=== PATIENT | female | born 1970 | race Caucasian/White ===

== ENCOUNTER 2020-04-24 16:01 | Outpatient (REF) | payer BC, OTHER, SELFPAY ==
--- NOTE | 2020-04-24 | MM_ITS ---
EXAMINATION: MM SCREENING DIGITAL BREAST TOMOSYNTHESIS, BILATERAL CLINICAL INFORMATION: Screening. Asymptomatic. The lifetime risk of breast cancer based on the Tyrer-Cuzick Model is 13%. COMPARISON: Mammography: 02/23/2019; outside exams 12/10/2017, 05/11/2017, 07/02/2015 ([facility]). TECHNIQUE: Digital breast tomosynthesis is performed in both the craniocaudal and mediolateral oblique views along with computer-aided detection (CAD). Synthesized 2D images are generated from the tomosynthesis. FINDINGS: There are scattered areas of fibroglandular density (ACR BI-RADS breast composition Category b). There are no significant masses, abnormal calcifications, or other abnormalities. Parenchymal pattern is similar to prior studies. No developing density. No significant changes. MM/MM tomosynthesis screening BI IMPRESSION: There are no significant changes from prior study. ASSESSMENT: BI-RADS 1: Negative RECOMMENDATION: Routine annual mammography screening. This patient's information was entered into a reminder system with a target due date for their next mammogram.
== END 2020-04-24 16:02 | disposition home or self-care (01) ==
LOC: HO.MAMMO 16:01
PROVIDERS: Visit Provider Advanced Practice Midwife
DX: Z12.31 Encounter for screening mammogram for malignant neoplasm of breast (principal)
CPT/HCPCS: 77063; 77067

== ENCOUNTER 2020-05-11 15:30 | Outpatient (REF) | payer BC, MEDICAID, SELFPAY | END 2020-05-11 15:31 | disposition home or self-care (01) | LOC: HO.LAB 15:30 | PROVIDERS: Visit Provider Advanced Practice Midwife | DX: B37.2 Candidiasis of skin and nail (principal); Z20.2 Contact with and (suspected) exposure to infections with a predominantly sexual mode of transmission | CPT/HCPCS: 87491; 87591 ==

== ENCOUNTER → 2020-09-07 15:39 | Outpatient (BNVA) | payer BC, MEDICAID, SELFPAY | PROVIDERS: Visit Provider Obstetrics & Gynecology ==

== ENCOUNTER → 2021-02-14 14:44 | Outpatient (BNVA) | payer BC, MEDICAID, SELFPAY | PROVIDERS: Visit Provider Obstetrics & Gynecology ==

== ENCOUNTER 2021-03-13 14:08 | Outpatient (REF) | payer BC, MEDICAID, SELFPAY ==
[2021-03-13 15:42] LABS: Hematocrit 37.1 % (37-47); Hemoglobin 12.9 g/dl (12.0-16.0); Mean Corpuscular HGB Conc 34.8 g/dl (31.0-35.0); Mean Corpuscular Hemoglobin 32.7 pg (27.0-33.0); Mean Corpuscular Volume 93.9 fL (80-98); Mean Platelet Volume 10.7 fL (9.4-12.3); Platelet Count 300 X10*3/uL (160-400); Red Blood Count 3.95 X10*6/uL (4.20-5.50); Red Cell Distribution Width 12.7 % (11.0-16.0); White Blood Count 6.8 X10*3/uL (4.8-10.8)
[2021-03-13 16:25] LABS: HCG Quantitative < 2 mIU/mL; TSH reflex Free T4 7.08 uIU/mL (0.32-4.0)
[2021-03-13 17:00] LABS: Free T4 (Free Thyroxine) 0.68 ng/dL (0.71-1.85)
[2021-03-15 03:10] LABS: Follicle Stimulating Hormone 5.7 mIU/mL; Lutenizing Hormone 1.8 mIU/mL
== END 2021-03-13 14:09 | disposition home or self-care (01) ==
LOC: HO.LAB 14:08
PROVIDERS: PCP Internal Medicine; Visit Provider Obstetrics & Gynecology
DX: N92.0 Excessive and frequent menstruation with regular cycle (principal); N93.9 Abnormal uterine and vaginal bleeding, unspecified
CPT/HCPCS: 36415; 58100; 83001; 83002; 84439; 84443; 84702; 85027; 88305

== ENCOUNTER 2021-04-05 15:19 | Outpatient (REF) | payer BC, MEDICAID, SELFPAY ==
--- NOTE | ~2021-04-05 | US_ITS ---
EXAMINATION: US PELVIS CLINICAL INFORMATION: Abnormal uterine vaginal bleeding COMPARISON: Previous pelvic ultrasound November 2012 TECHNIQUE: Ultrasound of the pelvis is performed using both transabdominal and transvaginal transducers along with Doppler. Transvaginal imaging is performed due to inadequate visualization transabdominally. FINDINGS: The uterus is anteverted and measures 9.2 x 4.3 x 5.2 cm in dimension. No focal uterine lesion is seen. Endometrial thickness is normal measuring 0.7 cm. There are nabothian cysts in the cervix. The ovaries are normal-appearing. The right ovary measures 2.2 x 1.7 x 2 cm and the left ovary measures 1.9 x 1.5 x 1.4 cm. There is no fluid in the pelvis. US/US pelvic and transvaginal IMPRESSION: Unremarkable exam.
== END 2021-04-05 15:20 | disposition home or self-care (01) ==
LOC: HO.US 15:19
PROVIDERS: PCP Internal Medicine; Visit Provider Obstetrics & Gynecology
DX: N92.0 Excessive and frequent menstruation with regular cycle (principal); N93.9 Abnormal uterine and vaginal bleeding, unspecified
CPT/HCPCS: 76830; 76856

== ENCOUNTER → 2021-04-11 09:53 | Outpatient (BNVA) | payer BC, MEDICAID, SELFPAY | PROVIDERS: Visit Provider Obstetrics & Gynecology ==

== ENCOUNTER → 2021-09-11 15:04 | Outpatient (BNVA) | payer BC, MEDICAID, SELFPAY | PROVIDERS: PCP Internal Medicine; Visit Provider Obstetrics & Gynecology | DX: Z13.89 Encounter for screening for other disorder (principal) ==

== ENCOUNTER 2021-09-16 16:03 | Outpatient (REF) | payer BC, MEDICAID, SELFPAY ==
--- NOTE | ~2021-09-16 | MM_ITS ---
EXAMINATION: MM SCREENING DIGITAL BREAST TOMOSYNTHESIS, BILATERAL CLINICAL INFORMATION: Screening. Asymptomatic. The lifetime risk of breast cancer based on the Tyrer-Cuzick Model is 12%. COMPARISON: Mammography: 04/24/2020, 02/23/2019; outside mammography 12/10/2017, 05/11/2017 ([facility]) TECHNIQUE: Digital breast tomosynthesis is performed in both the craniocaudal and mediolateral oblique views along with computer-aided detection (CAD). Synthesized 2D images are generated from the tomosynthesis. FINDINGS: There are scattered areas of fibroglandular density (ACR BI-RADS breast composition Category b). There are no significant masses, abnormal calcifications, or other abnormalities. Parenchymal pattern is similar to prior studies. There is no developing density or architectural abnormality. The axilla and skin contours are unremarkable. No significant changes. MM/MM tomosynthesis screening BI IMPRESSION: No mammographic evidence of malignancy. ASSESSMENT: BI-RADS 1: Negative RECOMMENDATION: Routine annual mammography screening. This patient's information was entered into a reminder system with a target due date for their next mammogram.
== END 2021-09-16 16:04 | disposition home or self-care (01) ==
LOC: HO.MAMMO 16:03
PROVIDERS: Visit Provider Internal Medicine
DX: Z12.31 Encounter for screening mammogram for malignant neoplasm of breast (principal)
CPT/HCPCS: 77063; 77067

== ENCOUNTER 2022-07-03 13:40 | Day surgery (SDC) | payer BC, MEDICAID, SELFPAY ==
[2022-06-27 14:05] VITALS: BMI 33.5
[2022-07-03 14:05] VITALS: BP 142/76; PULSE 71; RESP 18; TEMP 36.6; O2SAT 96
--- NOTE | 2022-07-03 14:09 | MHC.SHP ---
Pre-Procedural Eval Section A Date of Service: 07/03/22 Section B Chief Complaint: screening Details of Present Illness: 51y.o F with PMH of hypothyroidism, fam hx of CRC in father. Relevant Social History: None Present Medications: see Short Stay Collaborative assessment Medical History: Significant History (as above ) History of Previous Operations: No relevant previous surgery Allergies: Allergies Allergy/AdvReac Type Severity Reaction Status Date / Time No Known Allergies Allergy Verified 03/21/22 08:54 Review of Systems Review of Systems Comment: 10 point ROS negative except as above Exam Exam Comment: Gen appear: No acute distress, well nourished HEENT: no icterus Chest: No overt resp distress Abd: soft, nontender, nondistended Psych: Stable affect, answering questions appropriately Neuro: A/Ox3 noted to move all extremities spontaneously Ext: no peripheral edema Plan Diagnosis/Plan: Unchanged I have reviewed the history and physical and performed a pertinent physical examination on my patient. No changes have occurred unless specified. Time Spent With Patient Time: Total time managing care of this patient today ____ minutes.
[2022-07-03] MEDS: Lactated Ringers 1,000 ML 50 ML IVCONT (14:13)
--- NOTE | 2022-07-03 14:24 | P.CONAN_ITS ---
HPI - Anesthesia Eval Consult details Narrative: screening colonoscopy PMFSH Active Problems Active Problems: All Active Problems (Updated 03/26/22 @ 19:17 by FAITH Ruelas) Constipation (Acute) Well woman exam (Acute) Hypothyroid (Acute) Menorrhagia (Acute) Potential exposure to STD (Acute) Yeast dermatitis (Acute) Well woman exam with routine gynecological exam (Acute) Past Medical History Medical History (Updated 03/26/22 @ 19:17 by FAITH Ruelas) Constipation Kuldip's thyroiditis Herpes simplex Hx of migraines Hyperlipidemia Hypothyroidism (acquired) Date of last menstrual period: 07/03/22 Patient : No Family History Family history of problems with anesthesia: No Surgical History Surgical History (Updated 03/21/22 @ 08:55 by Brad Das) Hx of section Hx of colonoscopy History of Problems with Anesthesia: No Social History Social History Alcohol intake: current Alcohol intake frequency: holidays/special occasions only Alcohol type: wine Patient Tobacco Use Status: Never used Tobacco Are you DNR?: No Advance Directives: No Advance Directives Information Provided: Yes Nutrition Risks: No Nutritional Risk Patient : No Sexual orientation: Straight/Heterosexual Gender identity: Female Meds Allergies Allergy/AdvReac Type Severity Reaction Status Date / Time No Known Allergies Allergy Verified 03/21/22 08:54 Active Medications: Current Medications Lactated Ringer's (Lr) 1,000 mls @ 50 mls/hr IVCONT .Q20H WU Last Admin: 07/03/22 14:13 Dose: 50 mls/hr Home Medications Medication Instructions Recorded Confirmed Last Taken Type acyclovir 400 mg tablet 400 mg PO DAILY 05/11/20 05/11/20 Unknown History levothyroxine 100 mcg capsule 100 mcg PO DAILY 05/11/20 05/11/20 Unknown History valacyclovir 500 mg tablet 500 mg PO DAILY 02/14/21 Unknown History (Valtrex) Exam Exam Date and Time: July 03, 2022 1424 Height,Weight and Vital Signs: Height 5 ft 6 in Weight 94.347 kg Last Vital Signs Temp 97.8 F 07/03/22 14:05 Pulse 71 07/03/22 14:05 Resp 18 07/03/22 14:05 BP 142/76 H 07/03/22 14:05 Pulse Ox 96 07/03/22 14:05 O2 Del Method 07/03/22 14:05 Airway Mallampati Class: II TM Dist: >3cm Neck ROM: Full Heart: rr Lungs: cta Assessment and Plan Final Anesthetic Review Family History of Problems with Anesthesia: No History of Problems with Anesthesia: No NPO: Yes ASA Class: II Final Preanesthetic Review: No Changes in Pt Med Stat, Meds/Allgs Chart Reviewed, Consent Obtained/Reviewed and Anes Risks/Benef Reviewed Patient Risk: Low Procedure Risk: Low Anesthetic Plan Anesthetic Plan: MAC: Disposition: Standard PACU
[2022-07-03 14:41] LABS: UPreg QC Valid YES; Urine Pregnancy NEGATIVE (NEGATIVE)
--- NOTE | 2022-07-03 15:22 | P.OP_ITS ---
Operative Note Operative Note Date of Service: 07/03/22 Narrative: Procedure: Colonoscopy Indication: Screening Family history of colon cancer Endoscopist: Evangelina Guadalupe MD Anesthesia Provider: Dr Sera Baca Anesthesia type: MAC Instrument: Olympus [id number]-[id number] Consent: Indication, risks vs benefits, and alternatives were discussed with the patient who gave written informed consent to proceed. EKG, pulse, pulse oximetry and blood pressure were monitored throughout the procedure. Please see anesthesia flowsheet. Procedure: The patient was brought to the procedure room and placed in the left lateral decubitus position. IV medications were administered by the anesthesia provider in attendance. A digital rectal exam was performed which was normal. The colonoscope was then inserted through the anus and advanced through the colon to the cecum at 80 cm,and terminal ileum. Mucosa was carefully examined under high definition white light as the instrument was slowly withdrawn in a retrograde panoramic fashion. Retroflexion was performed in rectum. The procedure was not difficult. There were no immediate obvious complications. The quality of the prep was BBPS: 1+2+3 = inadequate in R colon. Withdrawal time 19 minutes. Limitations: Poor prep. Findings: Mucosa: Cecum not completely visualised due to solid and semi solid stool covering most of the lumen despite extensive irrigation. Protruding lesions: * 5 sessile polyps of size 3-8 mm in sigmoid colon. Cold snare polypectomy was performed. The polyps were completely removed and retrieved. * Medium internal hemorrhoids without stigmata of recent bleeding. Impression: 1. Poor prep in R colon. 2. Total of 5 polyps removed from sigmoid colon. 3. Internal hemorrhoids Recommendations: - Follow path results. - Repeat colonoscopy in 1-2 years due to poor prep.
[2022-07-03 15:25] VITALS: BP 100/51; PULSE 89; RESP 16; TEMP 36.7; O2SAT 98
[2022-07-03 15:40] VITALS: BP 118/65; PULSE 80; RESP 18; TEMP 37.1; O2SAT 97
== END 2022-07-03 16:25 | disposition home or self-care (01) ==
PROVIDERS: Anesthesiology; PCP Internal Medicine; Visit Provider Internal Medicine
PROC: 0DJD8ZZ Inspection of Lower Intestinal Tract, Via Natural or Artificial Opening Endoscopic (ICD-10-PCS; CPT 45378; principal; 2022-07-03 14:50)
DX: Z12.11 Encounter for screening for malignant neoplasm of colon (principal); Z80.0 Family history of malignant neoplasm of digestive organs; Z83.71 Family history of colonic polyps; D12.5 Benign neoplasm of sigmoid colon; K59.01 Slow transit constipation; R14.0 Abdominal distension (gaseous); K64.8 Other hemorrhoids; E78.5 Hyperlipidemia, unspecified; E06.3 Autoimmune thyroiditis; E03.9 Hypothyroidism, unspecified; B00.9 Herpesviral infection, unspecified; Z79.899 Other long term (current) drug therapy
CPT/HCPCS: 45385; 81025; 88305

== ENCOUNTER → 2022-07-18 16:26 | Outpatient (BNVA) | payer BC, MEDICAID, SELFPAY | PROVIDERS: PCP Internal Medicine; Visit Provider Nurse Practitioner Family | DX: Z13.89 Encounter for screening for other disorder (principal) ==

== ENCOUNTER 2022-12-16 09:11 | Outpatient (AMB) | payer BC, MEDICAID, SELFPAY ==
--- NOTE | 2022-12-16 09:17 | A.OFFVIS_ITS ---
Intake Vital Signs 12/16/22 09:19 Height 5 ft 6 in Weight 211 lb BMI 34.1 BP 136/80 Intake Visit Reasons: Selene Diesel Service Technician Required: No Information Interpreted: non-clinical & clinical Geotechnical Laboratory Technician: Geotechnical Laboratory Technician Present (Emily) Allergies No Known Allergies Allergy (Verified 12/16/22 09:21) Is last menstrual period known: Yes Last menstrual period: 11/22/22 Post menopausal: No HPI HPI Comments History of Present Illness Details Presenting for annual exam. No complaints. Last Pap/HPV was negative in 02/10 Last Mammogram was BI-RADS 1 in 09/13 Last Colonoscopy was in 07/17, the recommendation was to repeat in 8 months [facility] Medical History Constipation Kuldip's thyroiditis Herpes simplex Hx of migraines Hyperlipidemia Hypothyroidism (acquired) Tubular adenoma Surgical History Hx of section Hx of colonoscopy Social History Alcohol intake: current Alcohol intake frequency: holidays/special occasions only Alcohol type: wine Patient Tobacco Use Status: Never used Tobacco Sexual orientation: Straight/Heterosexual Gender identity: Female Female Reproductive History Menstrual Age of Menarche: 14 Duration of menses: 3-5 days Date of last menstrual period: 11/22/22 control method: none Total pregnancies: 3 Full term: 1 Ab spontaneous: 2 Date of last pap smear: 02/16/19 (negative) History of abnormal pap smear: Yes Date of Mammogram: 09/16/21 Review of Systems Const All systems reviewed & are unremarkable except as noted in HPI and below Card Reports as per HPI Resp Reports as per HPI GI Reports as per HPI and Reports no additional complaints Reports as per HPI Physical Exam Vital Signs: Last Vital Signs BP 136/80 12/16/22 09:19 BMI result Body Mass Index 34.1 Const General: cooperative, healthy appearing and comfortable Chest Chest palpation & inspection: normal inspection of the chest and normal palpation of entire chest wall Breast/axilla inspection: normal inspection of the breasts and normal inspection of the axillae Breast/axilla palpation: normal palpation of the breasts, normal palpation of the axillae and no axillary lymphadenopathy Resp Effort & Inspection: normal respiratory effort Auscultation: clear to auscultation bilaterally Percussion: percussion normal Cardio Palpation: normal PMI Rate: regular rate Rhythm: regular rhythm Heart sounds: no murmurs and no rubs Peripheral pulses: Peripheral pulses 2+ throughout GI Inspection: Yes normal to inspection Palpation (GI): Soft to palpation, nontender, no guarding, not rigid and No hepatosplenomegaly present Percussion: Yes normal to percussion Auscultation: normal bowel sounds Rectal Exam - Female: deferred General: Yes bladder normal to palpation External Female Exam: No lesion Speculum Exam - Vagina: normal appearance of the vagina, normal palpation, normal vaginal discharge and not erythematous Speculum Exam - Cervix: normal appearance of the cervix and normal palpation Bimanual exam- vagina & uterus: normal bimanual exam, normal palpation, uterine size normal, bladder normal to palpation, consistency normal and normal palpation Bimanual Exam- Adnexa, other: normal adnexae, no masses and no tenderness Assessment & Plan Assessment & Plan (1) Well woman exam: Code(s): Z01.419 - Encounter for gynecological examination (general) (routine) without abnormal findings Plan: Co testing not indicated this year. Counseled the patient about the recommended dietary allowance of 1200 mg of Calcium & 600 IU of vitamin D. Mammogram scheduled in few weeks , the patient had a recent screening colonoscopy and will be due in 8 months and will be scheduling it soon . The patient was instructed to perform monthly self-breast exams and schedule annual exam in a year; all questions answered and the patient verbalized understanding. Orders: Orders MM screening mammo BI Today Z12.31 - Encounter for screening mammogram for malignant neoplasm of breast Coding Level of Care Code Est Pt Prev Care 40-64y(42202) Diagnoses Well woman exam Z01.419
[2022-12-16 09:19] VITALS: BP 136/80; BMI 34.1
== END 2022-12-16 10:11 | disposition home or self-care (01) ==
LOC: HO.HWS 09:11
PROVIDERS: PCP Internal Medicine; Visit Provider Obstetrics & Gynecology
DX: Z01.419 Encounter for gynecological examination (general) (routine) without abnormal findings (principal)
CPT/HCPCS: 99396

== ENCOUNTER → 2022-12-16 09:11 | Outpatient (BNVA) | payer BC, MEDICAID, SELFPAY | PROVIDERS: PCP Internal Medicine; Visit Provider Obstetrics & Gynecology ==

== ENCOUNTER → 2022-12-19 09:45 | Outpatient (BNV) | payer BC, MEDICAID, SELFPAY | PROVIDERS: PCP Internal Medicine; Visit Provider Radiology Diagnostic Radiology | DX: Z12.31 Encounter for screening mammogram for malignant neoplasm of breast (principal) | CPT/HCPCS: 77063; 77067 ==

== ENCOUNTER 2022-12-19 09:48 | Outpatient (REF) | payer BC, MEDICAID, SELFPAY ==
--- NOTE | ~2022-12-19 | MM_ITS ---
EXAMINATION: MM SCREENING DIGITAL BREAST TOMOSYNTHESIS, BILATERAL CLINICAL INFORMATION: Screening. Asymptomatic. The lifetime risk of breast cancer based on the Tyrer-Cuzick Model is 11.8%. COMPARISON: Mammography: This study is compared with prior exams dating back to 2017. TECHNIQUE: Digital breast tomosynthesis is performed in both the craniocaudal and mediolateral oblique views along with computer-aided detection (CAD). Synthesized 2D images are generated from the tomosynthesis. FINDINGS: There are scattered areas of fibroglandular density (ACR BI-RADS breast composition Category b). There are no significant masses, abnormal calcifications, or other abnormalities. MM/MM tomosynthesis screening BI IMPRESSION: No mammographic evidence of malignancy. ASSESSMENT: BI-RADS BI-RADS 1 - Negative RECOMMENDATION: Routine annual mammography screening. 1 year F/U This examination should not preclude the clinical evaluation of a suspicious palpable abnormality. This patient's information was entered into a reminder system with a target due date for their next mammogram.
== END 2022-12-19 09:49 | disposition home or self-care (01) ==
LOC: HO.MAMMO 09:48
PROVIDERS: PCP Internal Medicine; Visit Provider Internal Medicine
DX: Z12.31 Encounter for screening mammogram for malignant neoplasm of breast (principal)
CPT/HCPCS: 77063; 77067

== ENCOUNTER → 2023-02-13 15:15 | Outpatient (BNVA) | payer BC, MEDICAID, SELFPAY | PROVIDERS: PCP Internal Medicine; Visit Provider Nurse Practitioner Family ==

== ENCOUNTER 2023-02-13 15:16 | Outpatient (AMB) | payer BC, MEDICAID, SELFPAY ==
--- NOTE | 2023-02-13 15:19 | A.OFFVIS_ITS ---
Intake Vital Signs 02/13/23 15:22 Height 5 ft 6 in Weight 205 lb 0.478 oz BMI 33.1 Blood Pressure Location Lt brachial Position Sitting Intake Visit Reasons: 6 month follow up - rediscuss colonoscopy Intake Note: Yamilet presents in the office as a 6 month follow up to rediscuss colonoscopy. CC: She states she is having both constipation and diarrhea. She was just on PCN and she has not been on that for a little bit. 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 Patient will need to repeat colonoscopy in 1-2 years due to suboptimal prep, sooner if clinically symptomatic. Constipation Continue MiraLax daily. Patient will be given Dulcolax tablets she can take it every evening. Patient was also encouraged to increase activity and fluid intake to promote better bowel motility. Status post colonoscopy Suboptimal prep and patient will need to repeat colonoscopy in 1-2 years. Patient denies any ill effects from the prep, anesthesia or procedure itself. Patient will need to move her bowels better. We will order thyroid study. I will see her in 6 months, sooner on as needed basis. Patient is agreeable to this plan and verbalizes understanding of instructions. She was given the opportunity to ask questions and all questions answered. ? Thank you for allowing me to participate in her care Plan Orders Orders TSH reflex Free T4 07/18/22 K59.00 Medications New bisacodyl (Dulcolax (bisacodyl)) 10 mg (2 x 5 mg) PO BEDTIME 180 tabs 4RF Changed From polyethylene glycol 3350 17 grams PO DAILY 510 grams 2RF To polyethylene glycol 3350 (Miralax) 17 grams PO DAILY 510 grams 2RF Discontinued docusate sodium Discontinued Reason: Doctor's Order 200 mg (2 x 100 mg) PO DAILY 180 caps 2RF TODAY'S VISIT Patient is here today for follow-up and to discuss going for colonoscopy. Patient reports that she is moving her bowels better. She is taking bisacodyl t ablets every evening. Occasional postprandial dyspepsia depending on what she eats. Patient reports that she has been stressed taking care of her autistic child. Patient reports that she would like to have colonoscopy done in June before her goes back to work. Patient denies melena, hematochezia, unintentional weight loss or ribbon like stools. Patient reports that she was placed on antibiotic and reports to have frequent diarrhea after worse. Patient also reports vaginal itching thinking that she might have yeast infection. Patient is eating yogurt. Has not tried probiotics [id number] yet. Patient denies any issues with anesthesia before. Did very well with procedure. Suboptimal prep which we will have patient take 2 Dulcolax daily PFSH Medical History Constipation Kuldip's thyroiditis Herpes simplex Hx of migraines Hyperlipidemia Hypothyroidism (acquired) Tubular adenoma Surgical History Hx of section Hx of colonoscopy Social History Alcohol intake: current Alcohol intake frequency: holidays/special occasions only Alcohol type: wine Patient Tobacco Use Status: Never used Tobacco Sexual orientation: Straight/Heterosexual Gender identity: Female Female Reproductive History Menstrual Age of Menarche: 14 Review of Systems Const Denies weight gain and Denies weight loss ENT Reports no additional complaints, Denies dysphagia and Denies odynophagia Card Reports no additional complaints Resp Reports no additional complaints GI Denies abdominal pain, Denies belching, Denies melena, Denies bloating, Denies change in bowel habits, Denies dysphagia, Denies excessive flatus, Denies dyspepsia, Denies heartburn, Denies diarrhea, Reports loose stools, Denies nausea, Denies odynophagia and Denies vomiting Reports no additional complaints Musc Reports no additional complaints Neuro Reports no additional complaints Psych Reports no additional complaints Endo Reports no additional complaints Physical Exam Vital Signs: BMI result Body Mass Index 33.1 Const General: healthy appearing, no acute distress and well developed Nutritional Appearance: obese Orientation/consciousness: patient oriented x3 HEENT Head: Yes normal to inspection, Yes normocephalic and Yes atraumatic Face and sinus: Yes normal facial exam Mouth: Normal oral and palatal mucosa present Throat: Yes posterior oropharynx normal, Yes tonsils normal and Yes uvula midline Eyes General: appearance normal, both eyes and all related structures Neck Neck: Yes normal visual inspection, Yes full ROM and Yes trachea midline Thyroid: Thyroid normal Resp Effort & Inspection: normal respiratory effort, able to speak in complete sentences, no tracheal deviation and symmetric chest movement Auscultation: clear to auscultation bilaterally Cardio Rate: regular rate Heart sounds: S1 normal heart sound present and S2 normal heart sound present GI Inspection: Yes normal to inspection, No distended and Yes obesity Palpation (GI): Soft to palpation, not firm, nontender and No hepatosplenomegaly present Auscultation: normal bowel sounds General: Yes no CVA tenderness Back/Spine/Pelvis Back: no CVA tenderness Skin General skin exam: elasticity normal, turgor normal and dry skin Neuro General: patient oriented x3 Psych Appearance: grossly normal Mental Status: mental status grossly normal Speech and movement: Normal speech and movement present Assessment & Plan Assessment & Plan (1) Tubular adenoma: Code(s): D36.9 - Benign neoplasm, unspecified site (2) Constipation: Code(s): K59.00 - Constipation, unspecified Qualifiers: Constipation type: slow transit constipation Qualified Code(s): K59.01 - Slow transit constipation (3) Screen for colon cancer: Code(s): Z12.11 - Encounter for screening for malignant neoplasm of colon Plan Patient can continue Dulcolax to have blood daily. She can also take MiraLax in the morning. With expect before during and after the procedure discussed with patient. The importance of good bowel prep discussed with patient as well as clear liquid diet day before the procedure. Patient denies any ill effects from anesthesia during last colonoscopy. Colonoscopy was done in June of 2022 1 tubular adenoma without high-grade dysplasia or carcinoma found. As mentioned above patient had suboptimal prep and will me that colonoscopy repeated in 1-2 years. Not on any anticoagulation medication. I will see patient after the procedure. We will book procedure for June. Patient will call the office sooner if she will have any GI concerning symptoms. She is agreeable to this plan and verbalizes understanding of instructions. She was given the opportunity to ask questions and all questions answered. Thank you for allowing me to participate in her care Medications: New polyethylene glycol 3350 (Miralax) 17 grams PO DAILY 510 grams 2RF polyethylene glycol 3350 (Miralax) As directed by gastroenterology department at [facility] 238 grams PO ONCE 238 grams 0RF Z12.11 - Encounter for screening for malignant neoplasm of colon fluconazole (Diflucan) 150 mg PO DAILY 3 tabs 0RF lactobacillus combination no.4 (Probiotic) administer with a meal 3,000 mmu cells PO DAILY 30 caps 5RF Changed From polyethylene glycol 3350 17 grams PO DAILY 510 grams 2RF To polyethylene glycol 3350 (Miralax) 17 grams PO DAILY 510 grams 2RF Refilled bisacodyl (Dulcolax (bisacodyl)) 10 mg (2 x 5 mg) PO BEDTIME 180 tabs 4RF Coding Level of Care Code Est Pt Level 4 (19536) Diagnoses Tubular adenoma D36.9 Slow transit constipation K59.01 Constipation type: slow transit constipation Screen for colon cancer Z12.11 Time Spent (min) 35 Comment 20 minutes spent with patient and additional 15 minutes spent reviewing her records
[2023-02-13 15:22] VITALS: BMI 33.1
== END 2023-02-13 16:12 | disposition home or self-care (01) ==
PROVIDERS: PCP Internal Medicine; Visit Provider Nurse Practitioner Family
DX: D36.9 Benign neoplasm, unspecified site (principal); K59.01 Slow transit constipation; Z12.11 Encounter for screening for malignant neoplasm of colon
CPT/HCPCS: 99214

== ENCOUNTER 2023-07-14 10:40 | Day surgery (SDC) | payer BC, MEDICAID, SELFPAY ==
[2023-07-08 14:16] VITALS: BMI 33.1
[2023-07-14 10:56] VITALS: BMI 33.1
[2023-07-14 11:03] VITALS: BP 156/82; PULSE 82; RESP 18; TEMP 36.6; O2SAT 96
[2023-07-14 11:04] LABS: UPreg QC Valid YES; Urine Pregnancy NEGATIVE (NEGATIVE)
--- NOTE | 2023-07-14 11:12 | P.OP_ITS ---
Operative Note Operative Note Date of Service: 07/14/23 Narrative: Procedure: Colonoscopy Indication: Personal history of polyps Endoscopist: Evangelina Guadalupe MD Anesthesia Provider: Dr Mychal Walsh Anesthesia type: MAC Instrument: Olympus [id number]-[id number] Consent: Indication, risks vs benefits, and alternatives were discussed with the patient who gave written informed consent to proceed. EKG, pulse, pulse oximetry and blood pressure were monitored throughout the procedure. Please see anesthesia flowsheet. Procedure: The patient was brought to the procedure room and placed in the left lateral decubitus position. IV medications were administered by the anesthesia provider in attendance. A digital rectal exam was performed which was abnormal due to finding of hemorrhoids. A distal attachment cap was affixed to the tip of the colonoscope which was then inserted through the anus and advanced through the colon to the cecum at 70 cm,and terminal ileum. Mucosa was carefully examined under high definition white light as the instrument was slowly withdrawn in a retrograde panoramic fashion. Retroflexion was performed in ascending colon and rectum. The procedure was not difficult. There were no immediate obvious complications. The quality of the prep was BBPS: 2+3+2 = adequate Withdrawal time 29 minutes. Limitations: No limitations. Findings: Mucosa: Normal to cecum and terminal ileum. Protruding lesions: * 3 sessile polyp of size 2-4 mm in ascending colon. Cold forceps polypectomy was performed. The polyps were completely removed and retrieved. * 8 sessile polyp of size 3-6 mm in transverse colon. Cold forceps polypectomy was performed. The polyps were completely removed and retrieved. * 3 sessile polyp of size 3-4 mm in descending colon. Cold forceps polypectomy was performed. The polyps were completely removed and retrieved. * 2 sessile polyp of size 3-5 mm in sigmoid colon. Cold forceps polypectomy was performed. The polyps were completely removed and retrieved. * Large internal hemorrhoids without stigmata of recent bleeding. Impression: 1. Normal colon and terminal mucosa 2. Total of 16 polyps removed. However patient had multiple diminutive polyps measuring 1-3 mm throughout her colon estimated to be in 30-40 range. 3. Internal hemorrhoids Recommendations: - Follow path results. - Strong suspicion for underlying polyposis syndrome, such as attenuated FAP vs MUTYH. Patient also reports strong family history of polyps and ? colon cancer. Recommend referral for genetic testing if patient agreeable. - Further management will depend on path results as well as genetic testing results, including evaluation for extra colonic manifestations.
--- NOTE | 2023-07-14 11:12 | MHC.SHP ---
Pre-Procedural Eval Section A - 24 Hr Update-Section A only Date of Service: 07/14/23 Section B - Complete if H&P > 30 days Chief Complaint: Personal history of polyps Details of Present Illness: Past medical history Constipation Kuldip's thyroiditis Herpes simplex Hx of migraines Hyperlipidemia Hypothyroidism (acquired) Tubular adenoma Surgical History Hx of section Hx of colonoscopy Present Medications: see Short Stay Collaborative assessment Allergies: Allergies Allergy/AdvReac Type Severity Reaction Status Date / Time No Known Allergies Allergy Verified 07/14/23 11:10 Review of Systems Review of Systems Comment: 10 point ROS negative except chronic constipation Exam Exam Comment: Gen appear: No acute distress HEENT: no icterus Chest: No overt resp distress Abd: soft, nontender, nondistended Psych: Stable affect, answering questions appropriately Neuro: A/Ox3 noted to move all extremities spontaneously Ext: no peripheral edema Plan Diagnosis/Plan: Unchanged I have reviewed the history and physical and performed a pertinent physical examination on my patient. No changes have occurred unless specified. Time Spent With Patient Time: Total time managing care of this patient today ____ minutes.
--- NOTE | 2023-07-14 11:17 | P.CONAN_ITS ---
[facility] Active Problems Active Problems: All Active Problems (Updated 07/26/22 @ 20:51 by Surekha Rosado, [facility]) Well woman exam (Acute) Hypothyroid (Acute) Menorrhagia (Acute) Potential exposure to STD (Acute) Yeast dermatitis (Acute) Well woman exam with routine gynecological exam (Acute) Tubular adenoma (Acute) Constipation (Acute) Past Medical History Medical History Tubular adenoma Hx of migraines Herpes simplex Hypothyroidism (acquired) Constipation Hyperlipidemia Kuldip's thyroiditis Family History Family history of problems with anesthesia: No Surgical History Surgical History Hx of colonoscopy Hx of section History of Problems with Anesthesia: No Social History Social History Alcohol intake: current Alcohol intake frequency: holidays/special occasions only Alcohol type: wine Patient Tobacco Use Status: Never used Tobacco Are you DNR?: No Advance Directives: No Advance Directives Information Provided: Yes Nutrition Risks: No Nutritional Risk FDLMP: 2 months ago Sexual orientation: Straight/Heterosexual Gender identity: Female Meds Allergies Allergy/AdvReac Type Severity Reaction Status Date / Time No Known Allergies Allergy Verified 07/14/23 11:10 Home Medications Medication Instructions Recorded Confirmed Last Taken Type levothyroxine 100 mcg capsule 100 mcg PO DAILY 05/11/20 07/08/23 Unknown History valacyclovir 500 mg tablet 500 mg PO DAILY 02/14/21 07/08/23 Unknown History (Valtrex) amitriptyline 10 mg tablet 10 mg PO BEDTIME 02/13/23 07/08/23 Unknown History docusate sodium 100 mg capsule 100 mg PO BID 02/13/23 07/08/23 Unknown History labetalol 100 mg tablet 100 mg PO BID 02/13/23 07/08/23 Unknown History meloxicam 7.5 mg tablet 7.5 mg PO DAILY 02/13/23 07/08/23 Unknown History silver sulfadiazine 1 % topical appl topical 02/13/23 Unknown History cream sumatriptan succinate 25 mg tablet 25 mg PO DAILY 02/13/23 07/08/23 Unknown History tizanidine 4 mg tablet 4 mg PO BEDTIME 02/13/23 07/08/23 Unknown History topiramate 100 mg tablet 100 mg PO DAILY 02/13/23 07/08/23 Unknown History Exam Height,Weight and Vital Signs: Height 5 ft 6 in Weight 92.986 kg Last Vital Signs Temp 97.9 F 07/14/23 11:03 Pulse 82 07/14/23 11:03 Resp 18 07/14/23 11:03 BP 156/82 H 07/14/23 11:03 Pulse Ox 96 07/14/23 11:03 O2 Del Method Room Air 07/14/23 11:03 Pertinent Lab Results Pertinent Lab Results: Laboratory Tests 07/14/23 10:50 Urine Test NEGATIVE Airway Mallampati Class: III TM Dist: >3cm Neck ROM: Full Loose/Missing/Broken Teeth: No Heart: rrr Lungs: clear Assessment and Plan Final Anesthetic Review Family History of Problems with Anesthesia: No History of Problems with Anesthesia: No NPO: Yes ASA Class: II Final Preanesthetic Review: No Changes in Pt Med Stat, Meds/Allgs Chart Reviewed, Consent Obtained/Reviewed and Anes Risks/Benef Reviewed Patient Risk: Low Procedure Risk: Low Anesthetic Plan Anesthetic Plan: MAC: Disposition: Standard PACU
--- NOTE | 2023-07-14 11:23 | PC.NURSE ---
dr. rosas updated that patient was drinking prep with iced tea at 0800 today. ok to proceed.
[2023-07-14 12:33] VITALS: BP 107/63; PULSE 88; RESP 16; TEMP 36.2; O2SAT 95
[2023-07-14 12:48] VITALS: BP 140/90; PULSE 75; RESP 20; TEMP 36.5; O2SAT 99
== END 2023-07-14 13:36 | disposition home or self-care (01) ==
PROVIDERS: Anesthesiology; PCP Internal Medicine; Visit Provider Internal Medicine
PROC: 0DJD8ZZ Inspection of Lower Intestinal Tract, Via Natural or Artificial Opening Endoscopic (ICD-10-PCS; CPT 45378; principal; 2023-07-14 11:00)
DX: Z12.11 Encounter for screening for malignant neoplasm of colon (principal); Z86.010 Personal history of colon polyps; Z83.719 Family history of colon polyps, unspecified; D12.2 Benign neoplasm of ascending colon; D12.3 Benign neoplasm of transverse colon; D12.4 Benign neoplasm of descending colon; K63.5 Polyp of colon; K59.01 Slow transit constipation; K64.4 Residual hemorrhoidal skin tags; K64.8 Other hemorrhoids; E78.5 Hyperlipidemia, unspecified; E06.3 Autoimmune thyroiditis; E03.9 Hypothyroidism, unspecified; B00.9 Herpesviral infection, unspecified; Z79.899 Other long term (current) drug therapy
CPT/HCPCS: 45380; 81025; 88305; J2704

== ENCOUNTER → 2023-07-14 10:40 | Outpatient (BNV) | payer BC, MEDICAID, SELFPAY | PROVIDERS: PCP Internal Medicine; Visit Provider Internal Medicine | DX: Z12.11 Encounter for screening for malignant neoplasm of colon (principal); K63.5 Polyp of colon; K64.8 Other hemorrhoids; Z86.010 Personal history of colon polyps | CPT/HCPCS: 45380 ==

== ENCOUNTER 2023-07-22 15:55 | Outpatient (AMB) | payer BC, MEDICAID, SELFPAY ==
[2023-07-22 15:58] VITALS: BP 126/70; PULSE 86; BMI 35.2
--- NOTE | 2023-07-22 15:58 | A.OFFVIS_ITS ---
Intake Vital Signs 07/22/23 15:58 Height 5 ft 6 in Weight 217 lb 13.067 oz BMI 35.2 BP 126/70 Blood Pressure Location Lt brachial Position Sitting Pulse 86 Intake Visit Reasons: S/P [place]; Dr Guadalupe Intake Note: Patient presents to in office visit today in follow up of colonoscopy on 07/14/23. CC: Patient states that ever since after she underwent colonoscopy she has been experiencing acid reflux. Patient expresses that she is very concerned about dying young like her father as he at 62 from colon cancer and a heart attack. Patient stating she does not want to leave her son alone and states that she can't understand why she has not had her whole body scan as she has 2 medical insurances and that should not being an issue. She c/o serious constipation her whole life and occasional blood when she wipes. She states that she has been having nightmares since after her procedure because she has been under so much stress Stock Holder Required: No Accompanied by: Son Allergies No Known Allergies Allergy (Verified 07/22/23 16:14) HPI S/P [place]; Dr Guadalupe HPI Details LAST VISIT Tubular adenoma Constipation Screen for colon cancer Plan Patient can continue Dulcolax daily. She can also take MiraLax in the morning. With expect before during and after the procedure discussed with patient. The importance of good bowel prep discussed with patient as well as clear liquid diet day before the procedure. Patient denies any ill effects from anesthesia during last colonoscopy. Colonoscopy was done in June of 2022 1 tubular adenoma without high-grade dysplasia or carcinoma found. As mentioned above patient had suboptimal prep and will me that colonoscopy repeated in 1-2 years. Not on any anticoagulation medication. I will see patient after the procedure. We will book procedure for June. Patient will call the office sooner if she will have any GI concerning symptoms. She is agreeable to this plan and verbalizes understanding of instructions. She was given the opportunity to ask questions and all questions answered. ? Thank you for allowing me to participate in her care Medications New polyethylene glycol 3350 (Miralax) 17 grams PO DAILY 510 grams 2RF polyethylene glycol 3350 (Miralax) As directed by gastroenterology department at [facility] 238 grams PO ONCE 238 grams 0RF Z12.11 fluconazole (Diflucan) 150 mg PO DAILY 3 tabs 0RF lactobacillus combination no.4 (Probiotic) administer with a meal 3,000 mmu cells PO DAILY 30 caps 5RF Changed Changed From polyethylene glycol 3350 17 grams PO DAILY 510 grams 2RF Changed To polyethylene glycol 3350 (Miralax) 17 grams PO DAILY 510 grams 2RF Refilled bisacodyl (Dulcolax (bisacodyl)) 10 mg (2 x 5 mg) PO BEDTIME 180 tabs 4RF COLONOSCOPY Findings: Mucosa: Normal to cecum and terminal ileum. Protruding lesions: * 3 sessile polyp of size 2-4 mm in ascending colon. Cold forceps polypectomy was performed. The polyps were completely removed and retrieved. * 8 sessile polyp of size 3-6 mm in transverse colon. Cold forceps polypectomy was performed. The polyps were completely removed and retrieved. * 3 sessile polyp of size 3-4 mm in descending colon. Cold forceps polypectomy was performed. The polyps were completely removed and retrieved. * 2 sessile polyp of size 3-5 mm in sigmoid colon. Cold forceps polypectomy was performed. The polyps were completely removed and retrieved. * Large internal hemorrhoids without stigmata of recent bleeding. Impression: 1. Normal colon and terminal mucosa 2. Total of 16 polyps removed. However p troy had multiple diminutive polyps measuring 1-3 mm throughout her colon estimated to be in 30-40 range. 3. Internal hemorrhoids Recommendations: - Follow path results. - Strong suspicion for underlying polypo sis syndrome, such as attenuated FAP vs MUTYH. Patient also reports strong family history of polyps and ? colon cancer. Recommend referral for genetic testing if patient agreeable. - Further management will depend on path results as well as genetic testing results, including evaluation for extra colonic manifestations. PATHOLOGY RESULTS Diagnosis A. Colon, ascending, polypectomies (3): - Tubular adenoma; negative for high-gra de dysplasia or carcinoma. - Colonic mucosa with prominent lymphoid aggregates. B. Colon, transverse, polypectomies (8): - Tubular adenomata (5); negative for hi gh-grade dysplasia or carcinoma. - Colonic mucosa with mild surface hyper plastic changes. C. Colon, descending, polypectomies (3): - Tubular adenomata (2); negative for hi gh-grade dysplasia or carcinoma. - Colonic mucosa with mild surface hyper plastic changes. D. Colon, sigmoid, polypectomies (2): Hyperplastic mucosal polyp TODAY'S VISIT: Patient is here today for follow-up and to discuss colonoscopy results. Patient denies any ill effects from the prep, anesthesia or procedure itself. Patient reports that she is very nervous and upset about how many polyps were found. Patient reports that her father was diagnosed with multiple polyps and had colon cancer patient is very upset. During this appointment nurse Vikash is accompany us to help with genetic testing as recommended due to multiple polyps found. Patient reports that she is very constipated states that when she uses Dulcolax it helps. Patient does not use it on a daily basis. Patient occasionally uses MiraLax. Occasional blood after bowel movement when wiping specially when she is constipated. Patient reports occasional abdominal cramping if no bowel movements for 2-3 days. Patient denies actual hematochezia. Did well with colonoscopy, however extremely anxious and tearful today. Patient demands full body scan. Discussed with patient going for genetic testing 1st before we decide the next step. Patient had tubular adenoma without high-grade dysplasia or carcinoma. [facility] Medical History Tubular adenoma Hx of migraines Herpes simplex Hypothyroidism (acquired) Constipation Hyperlipidemia Kuldip's thyroiditis Surgical History Hx of colonoscopy Hx of section Social History Alcohol intake: current Alcohol intake frequency: holidays/special occasions only Alcohol type: wine Patient Tobacco Use Status: Never used Tobacco Sexual orientation: Straight/Heterosexual Gender identity: Female Female Reproductive History Menstrual Age of Menarche: 14 Review of Systems Const Denies weight gain and Denies weight loss ENT Reports no additional complaints, Denies dysphagia and Denies odynophagia Card Reports no additional complaints Resp Reports no additional complaints GI Denies abdominal pain, Denies belching, Denies melena, Denies bloating, Denies change in bowel habits, Reports constipation, Denies dysphagia, Denies excessive flatus, Denies dyspepsia, Denies heartburn, Denies diarrhea, Denies loose stools, Denies nausea, Denies odynophagia and Denies vomiting Reports no additional complaints Musc Reports no additional complaints Neuro Reports no additional complaints Psych Reports no additional complaints Endo Reports no additional complaints Physical Exam Vital Signs: Last Vital Signs Pulse 86 07/22/23 15:58 BP 126/70 07/22/23 15:58 BMI result Body Mass Index 35.2 Const General: healthy appearing, no acute distress and well developed Nutritional Appearance: obese Orientation/consciousness: patient oriented x3 Resp Effort & Inspection: normal respiratory effort, able to speak in complete sentences, no tracheal deviation and symmetric chest movement Auscultation: clear to auscultation bilaterally Cardio Rate: regular rate GI Inspection: Yes normal to inspection, No distended and Yes obesity Palpation (GI): Soft to palpation, not firm, nontender and No hepatosplenomegaly present Auscultation: normal bowel sounds General: Yes no CVA tenderness Back/Spine/Pelvis Back: no CVA tenderness Skin General skin exam: elasticity normal, turgor normal and dry skin Neuro General: patient oriented x3 Psych Appearance: grossly normal Mental Status: mental status grossly normal Affect: Anxious affect present and Other affect and mood findings present (Tearful) Assessment & Plan Assessment & Plan (1) Tubular adenoma: Code(s): D36.9 - Benign neoplasm, unspecified site (2) Constipation: Code(s): K59.00 - Constipation, unspecified Qualifiers: Constipation type: slow transit constipation Qualified Code(s): K59.01 - Slow transit constipation Plan Multiple tubular adenoma found. Genetic testing done today to rule out polyposis syndrome, such as attenuated FAP vs MUTYH. Patient does have a strong family history of colorectal cancer. Script for Dulcolax given to patient. Patient was encouraged to take it every evening. Script for MiraLax to be taken every day. Patient was encouraged to increase fluid intake and activity to promote better bowel motility. Will do RAST allergen testing as well. Patient will return in 3 months so we can decide how to proceed and what will be the ne xt step. Patient is agreeable to this plan and verbalizes understanding of instructions she was given the opportunity to ask questions and all questions answered. Thank you for allowing me to participate in her care Orders: Orders Rast Allergen 07/22/23 K21.9 - Gastro-esophageal reflux disease without esophagitis Medications: New bisacodyl (Dulcolax (bisacodyl)) 10 mg (2 x 5 mg) PO BEDTIME 180 tabs 4RF polyethylene glycol 3350 (Miralax) 17 grams PO DAILY 510 grams 2RF Coding Level of Care Code Est Pt Level 4 (73939) Diagnoses Tubular adenoma D36.9 Slow transit constipation K59.01 Constipation type: slow transit constipation Time Spent (min) 35 Comment 20 minutes spent with patient and additional 15 minutes spent reviewing her records
== END 2023-07-22 16:45 | disposition home or self-care (01) ==
PROVIDERS: PCP Internal Medicine; Visit Provider Nurse Practitioner Family
DX: D36.9 Benign neoplasm, unspecified site (principal); K59.01 Slow transit constipation
CPT/HCPCS: 99214

== ENCOUNTER → 2023-07-22 15:55 | Outpatient (BNVA) | payer BC, MEDICAID, SELFPAY | PROVIDERS: PCP Internal Medicine; Visit Provider Nurse Practitioner Family ==

== ENCOUNTER 2023-08-18 15:41 | Outpatient (AMB) | payer BC, MEDICAID, SELFPAY ==
--- NOTE | 2023-08-18 15:42 | A.OFFVIS_ITS ---
Intake Vital Signs 08/18/23 15:43 Height 5 ft 6 in Weight 218 lb 4.122 oz BMI 35.2 BP 118/73 Blood Pressure Location Lt brachial Position Sitting Pulse 80 Intake Visit Reasons: follow up Intake Note: Patient presents to in office visit today in follow up of constipation. CC: Patient continues to express concerns about her family hx of cancer. Intake Clerk Required: No Accompanied by: Son Allergies No Known Allergies Allergy (Verified 08/18/23 15:46) HPI follow up HPI Details LAST VISIT: Tubular adenoma Constipation Plan Multiple tubular adenoma found. Genetic testing done today to rule out polyposis syndrome, such as attenuated FAP vs MUTYH. Patient does have a strong family history of colorectal cancer. Script for Dulcolax given to patient. Patient was encouraged to take it every evening. Script for MiraLax to be taken every day. Patient was encouraged to increase fluid intake and activity to promote better bowel motility. Will do RAST allergen testing as well. Patient will return in 3 months so we can decide how to proceed and what will be the next step. Patient is agreeable to this plan and verbalizes understanding of instructions she was given the opportunity to ask questions and all questions answered. ? 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 Recommendations made by Dr. Guadalupe: Recommend referral to - genetics at [facility]. - gen surg to discuss options for colect sonali given large burden of diminutive polyps. - endocrine for thyroid ultrasound. In addition will need an EGD (with side viewing scope) for gastric/duodenal polyps and ampullary adenoma screening. IF symptomatic, can also consider abd CT to r.o desmoid tumor. Genetic findings similar to patient has 2 biological sisters. Patient reports that her sister had partial colectomies done. Patient states that she is not ready to make such a decision yet. Her son is only very small and she does not want to proceed with this. She would rather go for another colonoscopy at the end of this year with endoscopy. Patient states that her is in concrete business and he is unable to have time off till March. Patient states that she does not have anyone else close that can help. Patient denies any melena, hematochezia, unintentional weight loss or ribbon like stools. Patient denies any dyspepsia, dysphagia or odynophagia reports that she is moving her bowels better now that she is taking the Dulcolax and MiraLax. Patient states that she is not suffering from acid reflux, however she reports dyspepsia occasionally after eating and postprandial abdominal bloating. Patient denies any dysphagia or odynophagia. [facility] Medical History (Updated 08/18/23 @ 16:05 by Surekha Rosado [facility]) Attenuated familial adenomatous polyposis Tubular adenoma Hx of migraines Herpes simplex Hypothyroidism (acquired) Constipation Hyperlipidemia Kuldip's thyroiditis Surgical History Hx of colonoscopy Hx of section Social History Alcohol intake: current Alcohol intake frequency: holidays/special occasions only Alcohol type: wine Patient Tobacco Use Status: Never used Tobacco Sexual orientation: Straight/Heterosexual Gender identity: Female Female Reproductive History Menstrual Age of Menarche: 14 Review of Systems Const Denies weight gain and Denies weight loss ENT Reports no additional complaints, Denies dysphagia and Denies odynophagia Card Reports no additional complaints Resp Reports no additional complaints GI Denies abdominal pain, Denies belching, Denies melena, Denies bloating, Reports constipation, Denies dysphagia, Denies excessive flatus, Reports dyspepsia, Reports heartburn, Denies diarrhea, Denies loose stools, Denies nausea, Denies odynophagia and Denies vomiting Reports no additional complaints Musc Reports no additional complaints Neuro Reports no additional complaints Psych Reports no additional complaints Endo Reports no additional complaints Physical Exam Vital Signs: BMI result Body Mass Index 35.2 Const General: healthy appearing and no acute distress Nutritional Appearance: obese Orientation/consciousness: patient oriented x3 Resp Effort & Inspection: normal respiratory effort, able to speak in complete sentences, no tracheal deviation and symmetric chest movement Auscultation: clear to auscultation bilaterally Cardio Rate: regular rate GI Inspection: Yes normal to inspection, No distended and Yes obesity Palpation (GI): Soft to palpation, not firm, nontender and No hepatosplenomegaly present Auscultation: normal bowel sounds General: Yes no CVA tenderness Back/Spine/Pelvis Back: no CVA tenderness Skin General skin exam: elasticity normal, turgor normal and dry skin Neuro General: patient oriented x3 Psych Appearance: grossly normal Mental Status: mental status grossly normal Affect: Anxious affect present Assessment & Plan Assessment & Plan (1) Tubular adenoma: Code(s): D36.9 - Benign neoplasm, unspecified site (2) Attenuated familial adenomatous polyposis: Code(s): D13.91 - Familial adenomatous polyposis (3) Hypothyroid: Code(s): E03.9 - Hypothyroidism, unspecified Qualifiers: Hypothyroidism type: other Qualified Code(s): E03.8 - Other specified hypothyroidism (4) Constipation: Code(s): K59.00 - Constipation, unspecified Qualifiers: Constipation type: slow transit constipation Qualified Code(s): K59.01 - Slow transit constipation Plan Referral to endocrinology for thyroid ultrasound. Referral to Genetics at [facility]. Patient will keep her appointment in September. Will send patient for CT enterography. Patient will be scheduled in near future for upper endoscopy and colonoscopy. Patient wishes to wait till end of March beginning of April. Patient states that her get time off for the winter after . Patient will call the office if she will have any GI concerning. Occasional dyspepsia after meals. Will send patient script for pantoprazole. She is agreeable to plan of care and verbalizes understanding of instructions. She was given the opportunity to ask questions and all questions answered. Thank you for allowing me to participate in her care Orders: Orders CT enterography Today D13.91 - Familial adenomatous polyposis, D36.9 - Benign neoplasm, unspecified site, R10.13 - Epigastric pain Creatinine Today R10.11 - Right upper quadrant pain Blood Urea Nitrogen Today R10.11 - Right upper quadrant pain Referrals Endocrinology Referral D13.91 - Familial adenomatous polyposis, E03.9 - Hypothyroidism, unspecified Genetics Referral D13.91 - Familial adenomatous polyposis, D36.9 - Benign waldo plasm, unspecified site Medications: New pantoprazole take one tablet half an hour before breakfast 40 mg PO DAILY 30 tabs 3RF K21.9 - Gastro-esophageal reflux disease without esophagitis Coding Level of Care Code Est Pt Level 4 (18346) Diagnoses Tubular adenoma D36.9 Attenuated familial adenomatous polyposis D13.91 Other specified hypothyroidism E03.8 Hypothyroidism type: other Slow transit constipation K59.01 Constipation type: slow transit constipation Time Spent (min) 40 Comment 25 minutes spent with patient and additional 15 minutes spent reviewing her records
[2023-08-18 15:43] VITALS: BP 118/73; PULSE 80; BMI 35.2
== END 2023-08-18 16:37 | disposition home or self-care (01) ==
PROVIDERS: PCP Internal Medicine; Visit Provider Nurse Practitioner Family
DX: D36.9 Benign neoplasm, unspecified site (principal); D13.91 Familial adenomatous polyposis; E03.8 Other specified hypothyroidism; K59.01 Slow transit constipation
CPT/HCPCS: 99214

== ENCOUNTER → 2023-08-18 15:41 | Outpatient (BNVA) | payer BC, MEDICAID, SELFPAY | PROVIDERS: PCP Internal Medicine; Visit Provider Nurse Practitioner Family ==

== ENCOUNTER 2023-09-29 15:36 | Outpatient (AMB) | payer BC, MEDICAID, SELFPAY ==
[2023-09-29 15:42] VITALS: BP 122/80; BMI 37.4
--- NOTE | 2023-09-29 15:42 | MHC.OFFVIS ---
Vital Signs 09/29/23 15:42 Height 5 ft 4 in Weight 218 lb BMI 37.4 BP 122/80 Intake Visit Reasons: lump in vagina Luggage Liner Required: No Information Interpreted: non-clinical & clinical Photographic Hand Developer: Photographic Hand Developer Present (Aidyn) Allergies No Known Allergies Allergy (Verified 09/29/23 15:43) HPI Comments Details: Presenting complaining of an episode of vaginal bleeding after 6 months of amenorrhea, right pelvic pain that is on and off with no associated vaginal discharge, no GI or symptoms, in addition to a right vaginal lump that the patient is feeling with her fingers preop Last co testing in 03/12 was negative Last mammogram in 12/14 was BI-RADS 1 Last colonoscopy was in 07/18 [facility] Medical History Attenuated familial adenomatous polyposis Tubular adenoma Hx of migraines Herpes simplex Hypothyroidism (acquired) Constipation Hyperlipidemia Kuldip's thyroiditis Surgical History Hx of colonoscopy Hx of section Social History Alcohol intake: current Alcohol intake frequency: holidays/special occasions only Alcohol type: wine Patient Tobacco Use Status: Never used Tobacco Sexual orientation: Straight/Heterosexual Gender identity: Female Female Reproductive History Menstrual Age of Menarche: 14 control method: none Date of last pap smear: 02/16/19 (negative) Date of Mammogram: 12/19/22 Review of Systems Const All systems reviewed & are unremarkable except as noted in HPI and below Physical Exam Vital Signs: Last Vital Signs BP 122/80 09/29/23 15:42 BMI result Body Mass Index 37.4 General: Yes no CVA tenderness External Female Exam: normal external appearance and normal appearance of the urethra Speculum Exam - Vagina: normal appearance of the vagina, normal palpation, no lesions, no masses and other (No evidence of vaginal lump) Speculum Exam - Cervix: normal appearance of the cervix, normal palpation, no lesions, no masses and nontender Bimanual exam- vagina & uterus: normal bimanual exam, normal palpation, uterine size normal, normal palpation, uterine shape normal, No Cervical tenderness present and non-tender Bimanual Exam- Adnexa, other: normal adnexae Back/Spine/Pelvis Back: no CVA tenderness Assessment & Plan Assessment & Plan (1) Pelvic pain: Code(s): R10.2 - Pelvic and perineal pain Category: Medical Plan: Urine dip done in the office was negative. GC and chlamydia taken and pelvic ultrasound ordered. Discussed with the patient the differential diagnosis of pelvic pain including but not limited to adnexal, uterine masses, pelvic infections (PID), GI the (Irritable bowel syndrome, diverticulitis, others), musculoskeletal, myofascial pain abdominal wall , adhesions, endometriosis, psychological and others causes. Will check results and treat accordingly. All questions answered, the patient verbalized understanding. Instructed the patient to schedule follow-up appointment in 2 weeks (2) Postmenopausal bleeding: Code(s): N95.0 - Postmenopausal bleeding Category: Medical Plan: Discussed with the patient the findings on pelvic exam, with no findings of of vaginal lump, in addition discussed with the patient the differential diagnosis of post menopausal bleeding with normal pelvic exam including but not limited to, endometrial hyperplasia, cancer, polyps and other causes; recommended ultrasound to measure the endometrial stripe; discussed with the patient that if the endometrial thickness is 4 mm or less the negative predictive value of endometrial pathology is 99%, otherwise If endometrial thickness is more than 4 mm will proceed with endometrial sampling versus hysteroscopy D&C polypectomy depending on the ultrasound findings. Instructed the patient to schedule an ultrasound follow-up appointment in 2 weeks. All questions answered, the patient verbalized understanding and agreed with the plan. Orders: Orders US pelvic and transvaginal Today N95.0 - Postmenopausal bleeding Coding Level of Care Code Est Pt Level 3 (49795) Diagnoses Pelvic pain R10.2 Postmenopausal bleeding N95.0
== END 2023-09-29 16:09 | disposition home or self-care (01) ==
LOC: HO.HWS 15:36
PROVIDERS: PCP Internal Medicine; Visit Provider Obstetrics & Gynecology
DX: R10.2 Pelvic and perineal pain (principal); N95.0 Postmenopausal bleeding
CPT/HCPCS: 99213

== ENCOUNTER 2023-09-29 15:36 | Outpatient (REF) | payer BC, MEDICAID, SELFPAY ==
[2023-10-01 05:40] LABS: CT PCR NOT DETECTED (Not Detect.); NG PCR NOT DETECTED (Not Detect.)
== END 2023-09-29 15:37 | disposition home or self-care (01) ==
LOC: HO.LNP 15:36
PROVIDERS: PCP Internal Medicine; Visit Provider Obstetrics & Gynecology
DX: R10.2 Pelvic and perineal pain (principal); N95.0 Postmenopausal bleeding
CPT/HCPCS: 0353U; 81003

== ENCOUNTER 2023-10-07 14:07 | Outpatient (REF) | payer BC, MEDICAID, SELFPAY ==
--- NOTE | ~2023-10-07 | US_ITS ---
EXAMINATION: US PELVIS CLINICAL INFORMATION: Postmenopausal bleeding. COMPARISON: Pelvic ultrasound 04/05/2021. TECHNIQUE: Ultrasound of the pelvis is performed using both transabdominal and transvaginal transducers along with Doppler. Transvaginal imaging is performed due to inadequate visualization transabdominally. FINDINGS: Uterus: The uterus is anteverted and measures 10.0 x 3.6 x 5.4 cm. Multicystic endometrium in the lower uterine segment. Endometrial stripe at this level is not well seen and cannot be accurately measured. Nabothian cysts are also seen in the cervix. The double wall endometrial thickness is 4 mm above the level of the cyst noted above. Adnexa: The right ovary measures 4.6 x 2.4 x 3.4 cm, volume 20 mL. There is a simple cyst in the right ovary measuring 3.3 cm which is probably benign. Spectral Doppler waveforms are unremarkable. The left ovary measures 1.9 x 1.1 x 1.2 cm, volume 1.3 mL. The left ovary appears normal. No pelvic free fluid. US/US pelvic and transvaginal IMPRESSION: Multicystic endometrium in the lower uterine segment. Gynecology referral and biopsy recommended in setting of postmenopausal bleeding. Probably benign 3.3 cm cyst in the right ovary. Recommend follow-up ultrasound in 3-6 months.
--- NOTE | ~2023-10-07 | CT_ITS ---
EXAMINATION: CT ENTEROGRAPHY ABDOMEN AND PELVIS WITH CONTRAST CLINICAL INFORMATION: Familial adenomatous polyposis COMPARISON: CT abdomen 11/25/2012 TECHNIQUE: Study performed with oral contrast(1500 mL) to distend the abdomen. The patient was injected with 85 mL Omnipaque 350 intravenous contrast which was administered without adverse effect. Coronal and sagittal reformatted images were obtained at the technologist's workstation. This CT examination was performed using dose optimization techniques as appropriate, variously including the following: *Automated exposure control *Adjustment of mA and/or kV according to patient size (this includes techniques or standardized protocols for targeted exams where dose is matched to indication/reason for exam; i.e. extremities or head) *Use of iterative reconstruction technique DLP: 669 mGy-cm FINDINGS: GASTROINTESTINAL FINDINGS: Stomach: Stomach is well distended without wall thickening, hyperenhancement or ulceration. Small intestine: No small bowel wall thickening or hyperenhancement. No dilation of small bowel to suggest stricture. No evidence of a small bowel fistula. No small bowel intraluminal mass or discernible polyp. Large intestine: Colonic diverticulosis without evidence of diverticulitis. No large bowel wall thickening or hyperenhancement. No colonic mass. Normal appendix. No perianal inflammatory changes appreciated within the limitations of the exam. Additional findings: No abnormal enhancement of the vasa recta or significant mesenteric or retroperitoneal lymphadenopathy is seen. ABDOMINAL AND PELVIC CT FINDINGS: LUNG BASES: Unremarkable. ABDOMINAL AND PELVIC WALL: Unremarkable. LIVER AND BILIARY TREE: Hypoattenuating hepatic parenchyma suggesting hepatic steatosis. Liver is mildly enlarged measuring 19 cm in span. GALLBLADDER: Unremarkable. PANCREAS: Unremarkable. SPLEEN: Incidentally noted accessory splenule. ADRENAL GLANDS: Unremarkable. KIDNEYS AND URETERS: Unremarkable. VASCULAR: Unremarkable. LYMPH NODES/PERITONEUM: No lymphadenopathy. FREE FLUID: None. BLADDER: Unremarkable. PELVIC VISCERA: A 3.1 cm low-attenuation right adnexal lesion measuring slightly greater than simple fluid density, recommend attention on concurrently performed pelvic ultrasound. Nabothian cysts in the cervix. OSSEOUS STRUCTURES: Asymmetric sclerosis of the right sacroiliac joint which could be seen in the setting of sacroiliitis or asymmetric osteitis condensans ilii. Multiple sclerotic lesions in the pelvis some of which demonstrate Hounsfield units suggestive of bone islands, whereas others are too small to characterize, though with narrow sclerotic margins. Multilevel degenerative disc disease. CT/CT enterography IMPRESSION: 1. No findings to suggest active inflammatory bowel disease. No intraluminal mass identified within the limitations of the modality. 2. Colonic diverticulosis without evidence of diverticulitis. 3. A 3.1 cm low-attenuation right adnexal lesion measuring slightly greater than simple fluid density, recommend attention on concurrently performed pelvic ultrasound. 4. Asymmetric sclerosis of the right sacroiliac joint which could be seen in the setting of sacroiliitis or asymmetric osteitis condensans ilii. 5. Hepatic steatosis and hepatomegaly. 6. Multiple sclerotic lesions in the pelvis some of which demonstrate Hounsfield units suggestive of bone islands, whereas others are too small to characterize, though with narrow sclerotic margins, in the absence of any history of primary malignancy likely to be benign. If there is a history of primary malignancy a nuclear medicine bone scan could be obtained for further evaluation.
[2023-10-07 15:03] LABS: Blood Urea Nitrogen 15 mg/dL (9-16); Estimated Glomerular Filt Rate > 60
[2023-10-07] MEDS: iohexoL 350 MG/ML 100 ML INFUS..BTL 85 ML IV (16:24)
[2023-10-07] MEDS: Sorbitol/Mannit/Xanth Imaging 500 ML LIQUID 1500 ML PO (16:25)
== END 2023-10-07 14:08 | disposition home or self-care (01) ==
LOC: HO.US 14:07
PROVIDERS: Nurse Practitioner Family; PCP Internal Medicine; Visit Provider Obstetrics & Gynecology
DX: N95.0 Postmenopausal bleeding (principal); R10.11 Right upper quadrant pain; D36.9 Benign neoplasm, unspecified site; R10.13 Epigastric pain; Z91.09 Other allergy status, other than to drugs and biological substances; D13.91 Familial adenomatous polyposis; K21.9 Gastro-esophageal reflux disease without esophagitis
CPT/HCPCS: 36415; 74177; 76830; 76856; 82565; 84520; 86003; Q9967

== ENCOUNTER 2023-10-22 15:57 | Outpatient (AMB) | payer BC, MEDICAID, SELFPAY ==
--- NOTE | 2023-10-22 16:02 | A.OFFVIS_ITS ---
Vital Signs 10/22/23 16:08 Height 5 ft 6 in Weight 214 lb 4.629 oz BMI 34.6 BP 146/82 H Blood Pressure Location Lt brachial Position Sitting Pulse 72 Pulse Source Pulse Oximeter Pulse Oximetry (%) 97 Oxygen Delivery Method Room Air Intake Visit Reasons: 3 month follow up Intake Note: Yamilet presents in office today for a 3 month follow up. CC; Pt denies any specific concerns or sx pertaining to this visit. Reports Analysis Manager Required: No Allergies No Known Allergies Allergy (Verified 10/22/23 16:05) HPI HPI 3 month follow up: Details: LAST VISIT Tubular adenoma Attenuated familial adenomatous polyposis Hypothyroid Constipation Plan Referral to endocrinology for thyroid ultrasound. Referral to Genetics at [facility]. Patient will keep her appointment in September. Will send patient for CT enterography. Patient will be scheduled in near future for upper endoscopy and colonoscopy. Patient wishes to wait till end of March beginning of April. Patient states that her get time off for the winter after . Patient will call the office if she will have any GI concerning. Occasional dyspepsia after meals. Will send patient script for pantoprazole. She is agreeable to plan of care and verbalizes understanding of instructions. She was given the opportunity to ask questions and all questions answered. ? Thank you for allowing me to participate in her care Orders Orders CT enterography Today D13.91, D36.9, R10.13 Creatinine Today R10.11 Blood Urea Nitrogen Today R10.11 Referrals Endocrinology Referral D13.91, E03.9 Genetics Referral D13.91, D36.9 Medications New pantoprazole take one tablet half an hour before breakfast 40 mg PO DAILY 30 tabs 3RF K21.9 TODAY'S VISIT Patient is here today for follow-up. Patient reports that she has been feeling better. Able to move her bowels better. She is not experiencing any epigastric pain or dyspepsia. Patient was unable to get pantoprazole as insurance was not covering it. Patient has not been taking any medication as she feels like she does not needed. Patient is scheduled for colonoscopy in April. Plans to go to [place] with her son for the whole summer. AFAP and referred to Genetics, has appointment in October. [facility] Medical History Attenuated familial adenomatous polyposis Tubular adenoma Hx of migraines Herpes simplex Hypothyroidism (acquired) Constipation Hyperlipidemia Kuldip's thyroiditis Surgical History Hx of colonoscopy Hx of section Social History Alcohol intake: current Alcohol intake frequency: holidays/special occasions only Alcohol type: wine Patient Tobacco Use Status: Never used Tobacco Sexual orientation: Straight/Heterosexual Gender identity: Female Female Reproductive History Menstrual Age of Menarche: 14 Review of Systems Const Denies weight gain and Denies weight loss ENT Reports no additional complaints, Denies dysphagia and Denies odynophagia Card Reports no additional complaints Resp Reports no additional complaints GI Denies abdominal pain, Denies belching, Denies melena, Denies bloating, Reports constipation, Denies dysphagia, Denies excessive flatus, Reports dyspepsia, Reports heartburn, Denies diarrhea, Denies loose stools, Denies nausea, Denies odynophagia and Denies vomiting Reports no additional complaints Musc Reports no additional complaints Neuro Reports no additional complaints Psych Reports no additional complaints Endo Reports no additional complaints Physical Exam Const General: healthy appearing and no acute distress Nutritional Appearance: obese Orientation/consciousness: patient oriented x3 Resp Effort & Inspection: normal respiratory effort, able to speak in complete sentences, no tracheal deviation and symmetric chest movement Auscultation: clear to auscultation bilaterally Cardio Rate: regular rate GI Inspection: Yes normal to inspection, No distended and Yes obesity Palpation (GI): Soft to palpation, not firm, nontender and No hepatosplenomegaly present Auscultation: normal bowel sounds General: Yes no CVA tenderness Back/Spine/Pelvis Back: no CVA tenderness Skin General skin exam: elasticity normal, turgor normal and dry skin Neuro General: patient oriented x3 Psych Appearance: grossly normal Mental Status: mental status grossly normal Affect: Anxious affect present Results Reviewed Results Reviewed: CT ENTEROGRAPHY FINDINGS: GASTROINTESTINAL FINDINGS: Stomach: Stomach is well distended without wall thickening, hyperenhancement or ulceration. Small intestine: No small bowel wall thickening or hyperenhancement. No dilation of small bowel to suggest stricture. No evidence of a small bowel fistula. No small bowel intraluminal mass or discernible polyp. Large intestine: Colonic diverticulosis without evidence of diverticulitis. No large bowel wall thickening or hyperenhancement. No colonic mass. Normal appendix. No perianal inflammatory changes appreciated within the limitations of the exam. Additional findings: No abnormal enhancement of the vasa recta or significant mesenteric or retroperitoneal lymphadenopathy is seen. ABDOMINAL AND PELVIC CT FINDINGS: LUNG BASES: Unremarkable. ABDOMINAL AND PELVIC WALL: Unremarkable. LIVER AND BILIARY TREE: Hypoattenuating hepatic parenchyma suggesting hepatic steatosis. Liver is mildly enlarged measuring 19 cm in span. GALLBLADDER: Unremarkable. PANCREAS: Unremarkable. SPLEEN: Incidentally noted accessory splenule. ADRENAL GLANDS: Unremarkable. KIDNEYS AND URETERS: Unremarkable. VASCULAR: Unremarkable. LYMPH NODES/PERITONEUM: No lymphadenopathy. FREE FLUID: None. BLADDER: Unremarkable. PELVIC VISCERA: A 3.1 cm low-attenuation right adnexal lesion measuring slightly greater than simple fluid density, recommend attention on concurrently performed pelvic ultrasound. Nabothian cysts in the cervix. OSSEOUS STRUCTURES: Asymmetric sclerosis of the right sacroiliac joint which could be seen in the setting of sacroiliitis or asymmetric osteitis condensans ilii. Multiple sclerotic lesions in the pelvis some of which demonstrate Hounsfield units suggestive of bone islands, whereas others are too small to characterize, though with narrow sclerotic margins. Multilevel degenerative disc disease. CT/CT enterography IMPRESSION: 1. No findings to suggest active inflammatory bowel disease. No intraluminal mass identified within the limitations of the modality. 2. Colonic diverticulosis without evidence of diverticulitis. 3. A 3.1 cm low-attenuation right adnexal lesion measuring slightly greater than simple fluid density, recommend attention on concurrently performed pelvic ultrasound. 4. Asymmetric sclerosis of the right sacroiliac joint which could be seen in the setting of sacroiliitis or asymmetric osteitis condensans ilii. 5. Hepatic steatosis and hepatomegaly. 6. Multiple sclerotic lesions in the pelvis some of which demonstrate Hounsfield units suggestive of bone islands, whereas others are too small to characterize, though with narrow sclerotic margins, in the absence of any history of primary malignancy likely to be benign. If there is a history of primary malignancy a nuclear medicine bone scan could be obtained for further evaluation. Assessment & Plan Assessment & Plan (1) Tubular adenoma: Code(s): D36.9 - Benign neoplasm, unspecified site Category: Medical (2) Attenuated familial adenomatous polyposis: Code(s): D13.91 - Familial adenomatous polyposis Category: Medical (3) Hypothyroid: Code(s): E03.9 - Hypothyroidism, unspecified Category: Medical Qualifiers: Hypothyroidism type: other Qualified Code(s): E03.8 - Other specified hypothyroidism (4) Constipation: Code(s): K59.00 - Constipation, unspecified Category: Medical Qualifiers: Constipation type: slow transit constipation Qualified Code(s): K59.01 - Slow transit constipation Plan Will start patient on famotidine, pantoprazole not covered by insurance. Avoid dietary triggers and late night snacking. Staying upright for minimum 3 hours after meals patient may take [id number] Dulcolax follow-up in the office in April prior to colonoscopy, sooner on as needed basis. Patient is agreeable to this plan and verbalizes understanding of instructions. She was given the opportunity to ask questions and all questions answered Thank you for allowing me to participate in her care Orders: Orders Liver Panel Today R74.01 - Elevation of levels of liver transaminase levels Medications: New famotidine 40 mg PO BEDTIME 90 tabs 3RF K21.9 - Gastro-esophageal reflux disease without esophagitis Discontinued nystatin Discontinued Reason: Duplicate 1 appl topical BID 30 grams 0RF pantoprazole take one tablet half an hour before breakfast Discontinued Reason: Doctor's Order 40 mg PO DAILY 30 tabs 3RF K21.9 - Gastro-esophageal reflux disease without esophagitis Coding Level of Care Code Est Pt Level 4 (70682) Diagnoses Tubular adenoma D36.9 Attenuated familial adenomatous polyposis D13.91 Other specified hypothyroidism E03.8 Hypothyroidism type: other Slow transit constipation K59.01 Constipation type: slow transit constipation Time Spent (min) 35 Comment 20 minutes spent with patient and additional 15 minutes spent reviewing her records
[2023-10-22 16:08] VITALS: BP 146/82; PULSE 72; O2SAT 97; BMI 34.6
== END 2023-10-22 16:32 | disposition home or self-care (01) ==
PROVIDERS: PCP Internal Medicine; Visit Provider Nurse Practitioner Family
DX: D36.9 Benign neoplasm, unspecified site (principal); D13.91 Familial adenomatous polyposis; E03.8 Other specified hypothyroidism; K59.01 Slow transit constipation
CPT/HCPCS: 99214

== ENCOUNTER → 2023-10-22 15:57 | Outpatient (BNVA) | payer BC, MEDICAID, SELFPAY | PROVIDERS: PCP Internal Medicine; Visit Provider Nurse Practitioner Family ==

== ENCOUNTER 2023-11-03 15:04 | Outpatient (REF) | payer BC, MEDICAID, SELFPAY ==
[2023-11-03 16:45] LABS: Alanine Aminotransferase 23 U/L (0-31); Albumin Level 4.4 g/dL (3.5-5.0); Alkaline Phosphatase 88 U/L (39-117); Aspartate Amino Transferase 17 U/L (5-31); Bilirubin Direct 0.1 mg/dL (0.0-0.5); Bilirubin Total 0.4 mg/dL (0.0-1.0); Total Protein 7.2 g/dL (6.5-8.0)
[2023-11-05 09:48] LABS: CA-125 10 U/mL (<35)
== END 2023-11-03 15:05 | disposition home or self-care (01) ==
LOC: HO.LAB 15:04
PROVIDERS: Obstetrics & Gynecology; PCP Internal Medicine; Visit Provider Nurse Practitioner Family
DX: R74.01 Elevation of levels of liver transaminase levels (principal); N83.209 Unspecified ovarian cyst, unspecified side
CPT/HCPCS: 36415; 80076; 86304

== ENCOUNTER 2023-11-03 15:24 | Outpatient (AMB) | payer BC, MEDICAID, SELFPAY ==
--- NOTE | 2023-11-03 15:39 | A.OFFVIS_ITS ---
Vital Signs 11/03/23 15:42 Height 5 ft 6 in Weight 213 lb 13.574 oz BMI 34.5 BP 124/76 Intake Visit Reasons: US follow up Food Service Team Member Required: No Information Interpreted: non-clinical & clinical Political Advisor: Political Advisor Present Accompanied by: Son Allergies No Known Allergies Allergy (Verified 11/03/23 15:44) Is last menstrual period known: Yes Last menstrual period: 03/22/20 Post menopausal: No Patient : No Do you need a note to return to daycare/school/sports/work: Yes (for surgery on thursday) HPI Comments Details: Presenting for follow-up of the pelvic ultrasound regarding postmenopausal bleeding. Pelvic ultrasound showed the following: Uterus: The uterus is anteverted and measures 10.0 x 3.6 x 5.4 cm. Multicystic endometrium in the lower uterine segment. Endometrial stripe at this level is not well seen and cannot be accurately measured. Nabothian cysts are also seen in the cervix. The double wall endometrial thickness is 4 mm above the level of the cyst noted above. Adnexa: The right ovary measures 4.6 x 2.4 x 3.4 cm, volume 20 mL. There is a simple cyst in the right ovary measuring 3.3 cm which is probably benign. Spectral Doppler waveforms are unremarkable. The left ovary measures 1.9 x 1.1 x 1.2 cm, volume 1.3 mL. The left ovary appears normal. No pelvic free fluid. [facility] Medical History Attenuated familial adenomatous polyposis Tubular adenoma Hx of migraines Herpes simplex Hypothyroidism (acquired) Constipation Hyperlipidemia Kuldip's thyroiditis Surgical History Hx of colonoscopy Hx of section Social History Alcohol intake: current Alcohol intake frequency: holidays/special occasions only Alcohol type: wine Patient Tobacco Use Status: Never used Tobacco Sexual orientation: Straight/Heterosexual Gender identity: Female Female Reproductive History Menstrual Age of Menarche: 14 Date of last menstrual period: 03/22/20 Total pregnancies: 2 Full term: 2 Review of Systems Card Reports as per HPI and Reports no additional complaints Resp Reports as per HPI and Reports no additional complaints GI Reports as per HPI and Reports no additional complaints Reports as per HPI Physical Exam Vital Signs: Last Vital Signs BP 124/76 11/03/23 15:42 BMI result Body Mass Index 34.5 Const General: cooperative, healthy appearing and comfortable Resp Effort & Inspection: normal respiratory effort Auscultation: clear to auscultation bilaterally Percussion: percussion normal Cardio Palpation: normal PMI Rate: regular rate Rhythm: regular rhythm Heart sounds: no murmurs and no rubs Peripheral pulses: Peripheral pulses 2+ throughout GI Inspection: Yes normal to inspection Palpation (GI): Soft to palpation, nontender, no guarding, not rigid and No hepatosplenomegaly present Percussion: Yes normal to percussion Auscultation: normal bowel sounds Rectal Exam - Female: deferred Assessment & Plan Assessment & Plan (1) Postmenopausal bleeding: Comment: Abnormal endometrium by ultrasound Code(s): N95.0 - Postmenopausal bleeding Category: Medical Plan: Discussed with the patient the pelvic ultrasound findings, the endometrial stripe thickenss measured by ultrasound was more than 4mm. The negative predictive value, positive predictive value, Sensitivity, specificity of using ultrasound measurement of endometrial stripe to detecting endometrial pathology including hyperplasia , polyp or cancer were discussed with the patient. Recommended to the patient that the next step is an endometrial sampling via hysteroscopy D&C possible polypectomy versus endometrial biopsy to r/o endometrial pathology including hyperplasia or cancer. All the pros and cons risks and benefits of each approach were discussed with the patient, endometrial biopsy being less invasive, office procedure with less sensitivity and inability diagnose a polyp and removal versus hysteroscopy done under anesthesia more invasive more sensitive to endometrial cancer and possibility of diagnosing and endometrial polyp with the possibility of polypectomy. All questions were answered pt verbalized understanding and decided to proceed with hysteroscopy D&C possible polypectomy/myomectomy. Discussed with the patient the procedure , all benefits and risks including but not limited to inability to complete the procedure , insufficient endometrial tissue for a complete evaluation of the endometrial cavity , bleeding, infection, possible need for blood transfusion with all its risk ( HIV,syphilis, Hepatitis, anaphylaxis shock, others..), injury to bladder, rectum, possible need for laparoscopy/laparotomy or hysterectomy. The patient verbalized unde rstanding and signed the consent. Instructions given the patient to stay NPO after midnight the day prior to the procedure and to take only the specific medication (s) discussed the morning of the surgical procedure and to schedule a 2 week postoperative appointment (2) Ovarian cyst: Code(s): N83.209 - Unspecified ovarian cyst, unspecified side Category: Medical Plan: Discussed with the patient the ovarian cyst by ultrasound. Discussed with the patient the Ultrasound findings, the main limitation of transvaginal ultrasonography alone as a diagnostic tool to distinguish benign from malignant masses relates to its lack of specificity and low positive predictive value for cancer. The differential diagnosis discussed with the patient includes the following but not limited to: benign and malignant gynecological and non- gynecological causes. Will order Serum tumor marker CA 125. Discussed with the patient that CA 125 is a protein associated with epithelial ovarian malignancies, but also frequently expressed at lower levels by nonmalignant tissue. Normal CA 125 levels can be found in ovarian cancer patients. Elevation of CA 125 levels may occur in nonmalignant gynecologic conditions, and in non- gynecologic cancers, It is most useful in postmenopausal women and in identifying non mucinous epithelial cancer. The CA 125 level is elevated in 80% of patients with epithelial ovarian cancer but in only 50% of patients with stage I disease. The overall sensitivity of CA 125 testing in distinguishing benign from malignant adnexal masses reportedly ranges from 61% to 90%; specificity ranges from 71% to 93%, positive predictive value ranges from 35% to 91%, and negative predictive value ranges from 67% to 90%. Discussed with the patient options of treatment , in case CA 125 is not elevated, including laparoscopy ovarian salpingo-oophorectomy vs. expectant management with repeat US in repeating pelvic US in 3-6 months from previous US. If the ovarian cyst is persistent larger and / or changes in Ultrasound appearance & became complex looking, or higher CA 125 will refer to gynecologic Oncology. All pros, cons, risks and benefits of each approach were discussed with the patient including but not limited to a delay in the diagnosis and treatment of ovarian cancer affecting the prognosis; The patient decided to go ahead with expectant management. Will repeat ultrasound in 3 months. Instructions given the patient to schedule an ultrasound and a follow-up ultrasound appointment. All questions were answered & the patient verbalized understanding and agreed with the plan Orders: Orders US pelvic and transvaginal 3 Months N83.209 - Unspecified ovarian cyst, unspecified side CA-125 Today N83.209 - Unspecified ovarian cyst, unspecified side Coding Level of Care Code Est Pt Level 3 (21598) Diagnoses Postmenopausal bleeding N95.0 Ovarian cyst N83.209
[2023-11-03 15:42] VITALS: BP 124/76; BMI 34.5
== END 2023-11-03 16:23 | disposition home or self-care (01) ==
PROVIDERS: PCP Internal Medicine; Visit Provider Obstetrics & Gynecology
DX: N95.0 Postmenopausal bleeding (principal); N83.209 Unspecified ovarian cyst, unspecified side
CPT/HCPCS: 99213

== ENCOUNTER 2023-11-11 11:11 | Day surgery (SDC) | payer BC, MEDICAID, SELFPAY ==
--- NOTE | 2023-11-09 14:21 | HO.ANESPROP2 ---
Documented by User: Sabine Henderson NP 11/09/23 14:21 HPI - Anesthesia Eval Consult details Narrative: 53yo F for D&C Hysteroscopy,possible myomectomy,possible polypectomy, PMFSH Active Problems Active Problems: All Active Problems Ovarian cyst (Acute) Postmenopausal bleeding (Acute) Pelvic pain (Acute) Attenuated familial adenomatous polyposis (Acute) High blood pressure (Acute) Well woman exam (Acute) Hypothyroid (Acute) Menorrhagia (Acute) Potential exposure to STD (Acute) Yeast dermatitis (Acute) Well woman exam with routine gynecological exam (Acute) Tubular adenoma (Acute) Constipation (Acute) Past Medical History Medical History Sleep apnea Attenuated familial adenomatous polyposis Tubular adenoma Hx of migraines Herpes simplex Hypothyroidism (acquired) Constipation Hyperlipidemia Kuldip's thyroiditis Family History Family history of problems with anesthesia: No Surgical History Surgical History H/O LEEP History of tonsillectomy History of endoscopy Hx of colonoscopy Hx of section History of Problems with Anesthesia: No Social History Social History Alcohol intake: current Alcohol intake frequency: holidays/special occasions only Alcohol type: wine Patient Tobacco Use Status: Never used Tobacco Use of substances other than those prescribed or required for medical reasons: No Are you DNR?: No Advance Directives: No Advance Directives Information Provided: Yes Sexual orientation: Straight/Heterosexual Gender identity: Female Meds Allergies Allergy/AdvReac Type Severity Reaction Status Date / Time No Known Allergies Allergy Verified 11/03/23 15:44 Home Medications ?Medication ?Instructions ?Recorded ?Confirmed ?Last Taken ?Type levothyroxine 100 mcg capsule 100 mcg PO DAILY 05/11/20 07/08/23 Unknown History valacyclovir 500 mg tablet 500 mg PO DAILY 02/14/21 07/08/23 Unknown History (Valtrex) amitriptyline 10 mg tablet 10 mg PO BEDTIME 02/13/23 07/08/23 Unknown History docusate sodium 100 mg capsule 100 mg PO BID 02/13/23 07/08/23 Unknown History labetalol 100 mg tablet 100 mg PO BID 02/13/23 07/08/23 Unknown History meloxicam 7.5 mg tablet 7.5 mg PO DAILY 02/13/23 07/08/23 Unknown History silver sulfadiazine 1 % topical appl topical 02/13/23 Unknown History cream sumatriptan succinate 25 mg tablet 25 mg PO DAILY 02/13/23 07/08/23 Unknown History tizanidine 4 mg tablet 4 mg PO BEDTIME 02/13/23 07/08/23 Unknown History topiramate 100 mg tablet 100 mg PO DAILY 02/13/23 07/08/23 Unknown History L.acidoph,paracasei-B.animalis-S.thermophilus 1 cap PO DAILY 08/18/23 Unknown History 16 billion cell capsule (RisaQuad-2) eletriptan 40 mg tablet mg PO PRN 08/18/23 Unknown History Assessment and Plan Assessment Anesthesia Assessment: Chart Reviewed Final Anesthetic Review Family History of Problems with Anesthesia: No History of Problems with Anesthesia: No Documented by User: Cony Roy MD 11/11/23 13:11 PMFSH Past Medical History Medical History Sleep apnea Attenuated familial adenomatous polyposis Tubular adenoma Hx of migraines Herpes simplex Hypothyroidism (acquired) Constipation Hyperlipidemia Kuldip's thyroiditis Surgical History Surgical History H/O LEEP History of tonsillectomy History of endoscopy Hx of colonoscopy Hx of section Social History Social History Alcohol intake: current Alcohol intake frequency: holidays/special occasions only Alcohol type: wine Patient Tobacco Use Status: Never used Tobacco Use of substances other than those prescribed or required for medical reasons: No Are you DNR?: No Advance Directives: No Advance Directives Information Provided: Yes Sexual orientation: Straight/Heterosexual Gender identity: Female Meds Allergies Allergy/AdvReac Type Severity Reaction Status Date / Time No Known Allergies Allergy Verified 11/03/23 15:44 Home Medications ?Medication ?Instructions ?Recorded ?Confirmed ?Last Taken ?Type levothyroxine 100 mcg capsule 100 mcg PO DAILY 05/11/20 07/08/23 Unknown History valacyclovir 500 mg tablet 500 mg PO DAILY 02/14/21 07/08/23 Unknown History (Valtrex) amitriptyline 10 mg tablet 10 mg PO BEDTIME 02/13/23 07/08/23 Unknown History docusate sodium 100 mg capsule 100 mg PO BID 02/13/23 07/08/23 Unknown History labetalol 100 mg tablet 100 mg PO BID 02/13/23 07/08/23 Unknown History meloxicam 7.5 mg tablet 7.5 mg PO DAILY 02/13/23 07/08/23 Unknown History silver sulfadiazine 1 % topical appl topical 02/13/23 Unknown History cream sumatriptan succinate 25 mg tablet 25 mg PO DAILY 02/13/23 07/08/23 Unknown History tizanidine 4 mg tablet 4 mg PO BEDTIME 02/13/23 07/08/23 Unknown History topiramate 100 mg tablet 100 mg PO DAILY 02/13/23 07/08/23 Unknown History L.acidoph,paracasei-B.animalis-S.thermophilus 1 cap PO DAILY 08/18/23 Unknown History 16 billion cell capsule (RisaQuad-2) eletriptan 40 mg tablet mg PO PRN 08/18/23 Unknown History Exam Airway Mallampati Class: II TM Dist: >3cm Neck ROM: Full Loose/Missing/Broken Teeth: No Heart: RRR Lungs: CTA Assessment and Plan Assessment Anesthesia Assessment: Anesthesia Plan Discussed Final Anesthetic Review NPO: Yes ASA Class: III Final Preanesthetic Review: Meds/Allgs Chart Reviewed, Consent Obtained/Reviewed and Anes Risks/Benef Reviewed Patient Risk: Intermediate Procedure Risk: Low Anesthetic Plan Anesthetic Plan: GA Disposition: Standard PACU
[2023-11-11 11:52] VITALS: BMI 35.4
[2023-11-11 11:58] LABS: UPreg QC Valid YES; Urine Pregnancy NEGATIVE (NEGATIVE)
[2023-11-11 12:09] VITALS: BP 144/78; PULSE 70; RESP 16; TEMP 36.3; O2SAT 94
[2023-11-11] MEDS: Lactated Ringers 1,000 ML 100 ML IVCONT (12:22)
--- NOTE | 2023-11-11 12:54 | MHC.SHP ---
Pre-Procedural Eval Section A - 24 Hr Update-Section A only Date of Service: 11/11/23 The patient is an INPATIENT: No Changes since office visit: No Cold of Flu in the past 2 weeks, No New Medical Problems, No Changes in Medication and No Patient answered all questions The patient has been examined within 24 hours of the surgical procedure. The History & Physical has been completed within 30 days and I have reviewed it.: Yes Section B - Complete if H&P > 30 days Chief Complaint: Postmenopausal bleeding Allergies: Allergies Allergy/AdvReac Type Severity Reaction Status Date / Time No Known Allergies Allergy Verified 11/03/23 15:44 Plan Diagnosis/Plan: Unchanged I have reviewed the history and physical and performed a pertinent physical examination on my patient. No changes have occurred unless specified. Time Spent With Patient Time: Total time managing care of this patient today ____ minutes.
--- NOTE | 2023-11-11 13:26 | PM.OP ---
Brief Operative Note Date of Service: 11/11/23 Pre-op diagnosis: Postmenopausal bleeding Post-op diagnosis: same (Normal endometrial cavity) Procedure: Hysteroscopy D&C Surgeon: Obed Velasco MD Anesthesia: GLMA Was an Angle Shear Operator used for this Procedure?: No Estimated blood loss (mL): 0 Pathology: other (Endometrial Scrapping) Condition: stable Disposition: PACU
--- NOTE | 2023-11-11 13:27 | P.OP_ITS ---
Operative Note Operative Note Date of Service: 11/11/23 Narrative: Preop Diagnosis: Post Menopausal bleeding Operation: Diagnostic Hysteroscopy, Dilataion & Curettage Post Op Diagnosis: Normal endometrial cavity QBL: Minimal Anesthesia: GLMA Surgeon: Obed Velasco MD Sea Kayaking Guide: None Complication: None Pathology: Endometrial Scrapings Procedure: The patient was put in the dorsal lithotomy position, scrubbed, and draped in the usual manner. A sterile speculum was inserted in the patient's vagina. The anterior lip of the cervix was grasped with a single tooth tenaculum. The cervix was dilated up to 5 mm, then the scope was inserted in the patient's uterus. Inspection revealed Normal endometrial cavity. The Myosure Reach device was used; the scope was removed from the endometrial cavity , sharp curettings was carried on with minimal to moderate amount of tissues retrieved. At the end of the procedure, all instruments were taken out of the patient uterine and vaginal cavity. The single tooth tenaculum was removed and homeostasis was assured using pressure,. The patient tolerated the procedure well and was transferred to the PACU in a stable condition.
[2023-11-11 13:36] VITALS: BP 130/76; PULSE 73; RESP 12; TEMP 36.6; O2SAT 97
[2023-11-11 13:41] VITALS: BP 139/71; PULSE 73; RESP 14; O2SAT 95
[2023-11-11 13:46] VITALS: BP 132/72; PULSE 66; RESP 14; O2SAT 96
[2023-11-11 14:01] VITALS: BP 128/78; PULSE 63; RESP 15; O2SAT 97
[2023-11-11 14:06] VITALS: BP 135/75; PULSE 67; RESP 17; TEMP 36.3; O2SAT 98
== END 2023-11-11 14:32 | disposition home or self-care (01) ==
PROVIDERS: PCP Internal Medicine; Visit Provider Obstetrics & Gynecology
PROC: 0UDB8ZZ Extraction of Endometrium, Via Natural or Artificial Opening Endoscopic (ICD-10-PCS; CPT 58558; principal; 2023-11-11 13:00)
DX: N95.0 Postmenopausal bleeding (principal); N83.209 Unspecified ovarian cyst, unspecified side; E06.3 Autoimmune thyroiditis; E78.5 Hyperlipidemia, unspecified; E03.9 Hypothyroidism, unspecified; B00.9 Herpesviral infection, unspecified; Z79.899 Other long term (current) drug therapy
CPT/HCPCS: 58558; 81025; 88305; J1100; J1885; J2250; J2405; J2704; J3010

== ENCOUNTER → 2023-11-11 11:11 | Outpatient (BNV) | payer BC, MEDICAID, SELFPAY | PROVIDERS: PCP Internal Medicine; Visit Provider Obstetrics & Gynecology | DX: N95.0 Postmenopausal bleeding (principal) | CPT/HCPCS: 58558 ==

== ENCOUNTER 2023-11-16 15:27 | Outpatient (AMB) | payer BC, MEDICAID, SELFPAY ==
--- NOTE | 2023-11-16 15:34 | A.OFFVIS_ITS ---
Intake Visit Reasons: post op Allergies No Known Allergies Allergy (Verified 11/03/23 15:44) HPI Comments Details: The patient is presenting post hysteroscopy D&C no complaints minimal vaginal bleeding no feverishness chills or abdominal pain. The pathology showed the following: Endometrium, curettage: Weakly proliferative endometrium with stromal breakdown and strips of tubal metaplasia; negative for atypia, hyperplasia or malignancy PFSH Medical History Sleep apnea Attenuated familial adenomatous polyposis Tubular adenoma Hx of migraines Herpes simplex Hypothyroidism (acquired) Constipation Hyperlipidemia Kuldip's thyroiditis Surgical History H/O LEEP History of tonsillectomy History of endoscopy Hx of colonoscopy Hx of section Social History Alcohol intake: current Alcohol intake frequency: holidays/special occasions only Alcohol type: wine Patient Tobacco Use Status: Never used Tobacco Sexual orientation: Straight/Heterosexual Gender identity: Female Female Reproductive History Menstrual Age of Menarche: 14 Review of Systems Const All systems reviewed & are unremarkable except as noted in HPI and below Reports as per HPI and Reports no additional complaints GI Reports no additional complaints Reports no additional complaints Assessment & Plan Assessment & Plan (1) Postmenopausal bleeding: Comment: Abnormal endometrium by ultrasound, proliferative endo Code(s): N95.0 - Postmenopausal bleeding Category: Medical Plan: Discussed with the patient the results of the results of the pathology showing weakly proliferative endometrium, explained to the patient if untreated proliferative endometrium can increase the risk of endometrial hyperplasia or malignancy, discussed with the patient the options of treatment including but not limited to BCP's, cyclic Progesterone, Mirena IUD. All pros, cons, risks and benefits of each option were discussed with the patient and the patient decided to go ahead with cyclic Provera, so a more detailed discussion re: Progesterone treatment including mechanism of action, benefits (regular menses, endometrial protection form unopposed estrogen and reduction in the risk of en dometrial hyperplasia and/or cancer ...), risks (Thrombosis, mood changes, weight gain, breast soreness, ? increased breast ca, others). Instructions were given to use a back- up method for contraception since this is not a method control, take the medication 1 tablet daily starting day 15-24 and to schedule a 3 months follow-up appointment with repeat endometrial biopsy; patient verbalized understanding and agreed with the plan. Medications: New medroxyprogesterone (Provera) start Provera 1 tablet daily from day 15-24 cyclically every months, day 1 being 1st day of menses 10 mg PO DAILY 10 days 30 tabs 3RF Coding Level of Care Code Est Pt Level 3 (83343) Diagnoses Postmenopausal bleeding N95.0
== END 2023-11-16 15:51 | disposition home or self-care (01) ==
PROVIDERS: PCP Internal Medicine; Visit Provider Obstetrics & Gynecology
DX: N95.0 Postmenopausal bleeding (principal)
CPT/HCPCS: 99213

== ENCOUNTER → 2023-11-16 15:27 | Outpatient (BNVA) | payer BC, MEDICAID, SELFPAY | PROVIDERS: PCP Internal Medicine; Visit Provider Obstetrics & Gynecology ==

== ENCOUNTER 2024-02-01 14:35 | Outpatient (REF) | payer BC, MEDICAID, SELFPAY ==
--- NOTE | ~2024-02-01 | US_ITS ---
EXAMINATION: US PELVIS COMPLETE US PELVIS ENDOVAGINAL CLINICAL INFORMATION: N83.209 - Unspecified ovarian cyst, unspecified side COMPARISON: Ultrasound pelvis from 10/07/2023 TECHNIQUE: Transabdominal and transvaginal images of the pelvis were obtained. FINDINGS: UTERUS: Anteverted. Normal size and contour, measuring 7.7 x 3.4 x 4.4 cm (cervix to fundus x AP x transverse). Limited evaluation of the endometrium though potentially measuring 4 mm in thickness.. Nabothian cysts are noted. Cystic regions are noted in the lower uterine segment. RIGHT OVARY: Normal size and echogenicity measuring 2.1 x 1.7 x 1.1 cm, volume 2.1 mL. LEFT OVARY: Normal size and echogenicity measuring 1.8 x 1.3 x 1.1 cm, volume 1.4 mL. Suggestion of prominent vasculature in the region of the region of the left adnexa potentially representing elements of pelvic congestion syndrome. Correlation with symptomatology. FREE FLUID: No pelvic free fluid. US/US pelvic and transvaginal IMPRESSION: 1. Limited evaluation of the endometrium though potentially measuring 4 mm in thickness. 2. Cystic regions are noted in the lower uterine segment. 3. Bilateral ovaries are unremarkable. 4. Suggestion of prominent vasculature in the region of the left adnexa potentially representing elements of pelvic congestion syndrome. Correlation with symptomatology. Electronically signed by: Nicholas Ontiveros MD 02/06/2024 07:08 PM EDT
--- NOTE | ~2024-02-01 | MM_ITS ---
EXAMINATION: MM SCREENING DIGITAL BREAST TOMOSYNTHESIS, BILATERAL CLINICAL INFORMATION: Screening. Asymptomatic. COMPARISON: Mammography: Comparison is made with available priors TECHNIQUE: Digital breast mammography with tomosynthesis is performed in both the craniocaudal and mediolateral oblique views along with computer-aided detection (CAD). FINDINGS: There are scattered areas of fibroglandular density (ACR BI-RADS breast composition Category b). There are no significant masses, abnormal calcifications, or other abnormalities. MM/MM tomosynthesis screening BI IMPRESSION: No mammographic evidence of malignancy. ASSESSMENT: BI-RADS BI-RADS 1 - Negative RECOMMENDATION: Routine annual mammography screening. 1 year F/U This examination should not preclude the clinical evaluation of a suspicious palpable abnormality. This patient's information was entered into a reminder system with a target due date for their next mammogram. Electronically signed by: Ramila Retana DO 02/16/2024 09:21 AM EDT
== END 2024-02-01 14:36 | disposition home or self-care (01) ==
LOC: HO.US 14:35
PROVIDERS: PCP Internal Medicine; Visit Provider Obstetrics & Gynecology
DX: Z12.31 Encounter for screening mammogram for malignant neoplasm of breast (principal); N83.209 Unspecified ovarian cyst, unspecified side
CPT/HCPCS: 76830; 76856; 77063; 77067

== ENCOUNTER 2024-02-01 15:25 | Outpatient (AMB) | payer BC, MEDICAID, SELFPAY ==
[2024-02-01 15:35] VITALS: BP 132/84; BMI 34.4
--- NOTE | 2024-02-01 15:35 | A.OFFVIS_ITS ---
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 No complaints. Last Pap/HPV was in 02/10 was negative Last Mammogram was in 12/14 was BI-RADS 1 Last colonoscopy was in 07/18 the patient is scheduled for another screening colonoscopy in April of 2024 [facility] Medical History Sleep apnea Attenuated familial adenomatous polyposis Tubular adenoma Hx of migraines Herpes simplex Hypothyroidism (acquired) Constipation Hyperlipidemia Kuldip's thyroiditis Surgical History H/O LEEP History of tonsillectomy History of endoscopy Hx of colonoscopy Hx of section Social History Alcohol intake: current Alcohol intake frequency: holidays/special occasions only Alcohol type: wine Patient Tobacco Use Status: Never used Tobacco Sexual orientation: Straight/Heterosexual Gender identity: Female Female Reproductive History Menstrual Age of Menarche: 14 Date of Mammogram: 12/19/22 Review of Systems Const All systems reviewed & are unremarkable except as noted in HPI and below Card Reports as per HPI Resp Reports as per HPI GI Reports as per HPI and Reports no additional complaints Reports as per HPI Physical Exam Vital Signs: BMI result Body Mass Index 34.4 Const General: cooperative, healthy appearing and comfortable Chest Chest palpation & inspection: normal inspection of the chest and normal palpation of entire chest wall Breast/axilla inspection: normal inspection of the breasts and normal inspection of the axillae Breast/axilla palpation: normal palpation of the breasts, normal palpation of the axillae and no axillary lymphadenopathy Resp Effort & Inspection: normal respiratory effort Auscultation: clear to auscultation bilaterally Percussion: percussion normal Cardio Palpation: normal PMI Rate: regular rate Rhythm: regular rhythm Heart sounds: no murmurs and no rubs Peripheral pulses: Peripheral pulses 2+ throughout GI Inspection: Yes normal to inspection Palpation (GI): Soft to palpation, nontender, no guarding, not rigid and No hepatosplenomegaly present Percussion: Yes normal to percussion Auscultation: normal bowel sounds Rectal Exam - Female: deferred General: Yes bladder normal to palpation External Female Exam: No lesion Speculum Exam - Vagina: normal appearance of the vagina, normal palpation, normal vaginal discharge and not erythematous Speculum Exam - Cervix: normal appearance of the cervix and normal palpation Bimanual exam- vagina & uterus: normal bimanual exam, normal palpation, uterine size normal, bladder normal to palpation, consistency normal and normal palpation Bimanual Exam- Adnexa, other: normal adnexae, no masses and no tenderness Assessment & Plan Assessment & Plan (1) Well woman exam: Code(s): Z01.419 - Encounter for gynecological examination (general) (routine) without abnormal findings Category: Medical Plan: Co testing done. Counseled the patient about the recommended dietary allowance of 1200 mg of Calcium & 600 IU of vitamin D. Mammogram ordered. The patient was instructed to perform monthly self-breast exams and schedule annual exam in a year. All questions answered and the patient verbalized understanding. Orders: Orders MM tomosynthesis screening BI Today Z12.31 - Encounter for screening mammogram for malignant neoplasm of breast Coding Level of Care Code Est Pt Prev Care 40-64y(04389) Diagnoses Well woman exam Z01.419
== END 2024-02-01 16:11 | disposition home or self-care (01) ==
LOC: HO.HWS 15:25
PROVIDERS: PCP Internal Medicine; Visit Provider Obstetrics & Gynecology
DX: Z01.419 Encounter for gynecological examination (general) (routine) without abnormal findings (principal)
CPT/HCPCS: 99396

== ENCOUNTER → 2024-02-01 16:15 | Outpatient (BNV) | payer BC, MEDICAID, SELFPAY | PROVIDERS: PCP Internal Medicine; Visit Provider Internal Medicine | DX: Z12.31 Encounter for screening mammogram for malignant neoplasm of breast (principal) | CPT/HCPCS: 77063; 77067 ==

== ENCOUNTER 2024-02-01 17:00 | Outpatient (REF) | payer BC, MEDICAID, SELFPAY ==
[2024-02-03 14:24] LABS: HPV mRNA E6/E7 Not Detected (Not Detected)
== END 2024-02-01 17:01 | disposition home or self-care (01) ==
LOC: HO.LNP 17:00
PROVIDERS: Visit Provider Obstetrics & Gynecology
DX: Z01.419 Encounter for gynecological examination (general) (routine) without abnormal findings (principal)
CPT/HCPCS: 87624; 88175

== ENCOUNTER 2024-02-18 14:28 | Outpatient (AMB) | payer BC, MEDICAID, SELFPAY ==
--- NOTE | 2024-02-18 14:29 | A.OFFVIS_ITS ---
Intake Visit Reasons: U/S results Allergies No Known Allergies Allergy (Verified 02/01/24 15:36) HPI Comments Details: The patient is scheduled tele health visit for follow-up ultrasound regarding previously identified ovarian cyst on a previous ultrasound done in 11/15. Recent ultrasound done showed the following: IMPRESSION: 1. Limited evaluation of the endometrium though potentially measuring 4 mm in thickness. 2. Cystic regions are noted in the lower uterine segment. 3. Bilateral ovaries are unremarkable. 4. Suggestion of prominent vasculature in the region of the left adnexa potentially representing elements of pelvic congestion syndrome. Correlation with symptomatology. The patient is doing well with no complaints, no vaginal bleeding, no pelvic pain or any other concerns. On Provera 10 mg p.o. q.d.day 15-24 PFSH Medical History Sleep apnea Attenuated familial adenomatous polyposis Tubular adenoma Hx of migraines Herpes simplex Hypothyroidism (acquired) Constipation Hyperlipidemia Kuldip's thyroiditis Surgical History H/O LEEP History of tonsillectomy History of endoscopy Hx of colonoscopy Hx of section Social History Alcohol intake: current Alcohol intake frequency: holidays/special occasions only Alcohol type: wine Patient Tobacco Use Status: Never used Tobacco Sexual orientation: Straight/Heterosexual Gender identity: Female Female Reproductive History Menstrual Age of Menarche: 14 Review of Systems Const All systems reviewed & are unremarkable except as noted in HPI and below Reports as per HPI and Reports no additional complaints GI Reports no additional complaints Reports no additional complaints Telehealth Telehealth Telehealth Platform: Telephone Location of provider rendering services: practice address Location of patient: address on file Patient Identification confirmed using: Name, : Yes Telehealth method: video Patient verbally consented to treatment: Yes Patient verbally consented to billing insurance company: Yes Patient informed of any privacy concerns related to visit: Yes Assessment & Plan Assessment & Plan (1) Ovarian cyst: Code(s): N83.209 - Unspecified ovarian cyst, unspecified side Category: Medical Plan: Discussed with the patient the finding on pelvic ultrasound showing bilateral normal ovaries with no evidence of any abnormalities. In addition, discussed with the patient cystic lesion in the lower uterine segment, possibly non specific, the the dilated pelvic vasculature possible congestion syndrome given the fact the patient does not have any pelvic pain explained to the patient this is non specific finding. Instructions given the patient to call in case of pelvic pain or any other concern. The patient was reassured. All questions a nswered, the patient verbalized understanding. I spent a total of 20 minutes reviewing the chart, talking to the patient via video and documenting in the medical record. Coding Level of Care Code Tele Est Pt Level 1 (39294) Diagnoses Ovarian cyst N83.209
== END 2024-02-18 14:56 | disposition home or self-care (01) ==
LOC: HO.HWS 14:28
PROVIDERS: PCP Internal Medicine; Visit Provider Obstetrics & Gynecology
DX: N83.209 Unspecified ovarian cyst, unspecified side (principal)
CPT/HCPCS: 99211

== ENCOUNTER → 2024-02-18 14:28 | Outpatient (BNVA) | payer BC, MEDICAID, SELFPAY | PROVIDERS: PCP Internal Medicine; Visit Provider Obstetrics & Gynecology ==

== ENCOUNTER → 2024-04-27 16:02 | Outpatient (AMB) | payer BC, MEDICAID, SELFPAY ==
--- NOTE | 2024-04-27 16:12 | MHC.OFFVIS ---
Vital Signs 04/27/24 16:13 Height 5 ft 6 in Weight 218 lb 4.122 oz BMI 35.2 BP 134/96 H Blood Pressure Location Lt brachial Position Sitting Pulse 96 Pulse Source Pulse Oximeter Pulse Oximetry (%) 98 Oxygen Delivery Method Room Air Intake Visit Reasons: 7 month follow up Intake Note: Yamilet presents in office today for a scheduled ~6-7 mos FUV. CC; Any changes or new sx since last visit? No significant sx or concerns at this time. Any labs or diagnostics since last visit? ?Liver Panel done. Furnace Charger Required: No Allergies No Known Allergies Allergy (Verified 05/19/24 10:26) HPI HPI 7 month follow up: Details: LAST VISIT: Tubular adenoma Attenuated familial adenomatous polyposis Hypothyroid Constipation Plan Will start patient on famotidine, pantoprazole not covered by insurance. Avoid dietary triggers and late night snacking. Staying upright for minimum 3 hours after meals patient may take [id number] Dulcolax follow-up in the office in April prior to colonoscopy, sooner on as needed basis. Patient is agreeable to this plan and verbalizes understanding of instructions. She was given the opportunity to ask questions and all questions answered ? Thank you for allowing me to participate in her care Orders Orders Liver Panel Today R74.01 Medications New famotidine 40 mg PO BEDTIME 90 tabs 3RF K21.9 Discontinued nystatin Discontinued Reason: Duplicate 1 appl topical BID 30 grams 0RF pantoprazole take one tablet half an hour before breakfast Discontinued Reason: Doctor's Order 40 mg PO DAILY 30 tabs 3RF K21.9 TODAY'S VISIT Patient is here today for follow-up and to discuss going for colonoscopy. Patient has colonoscopy scheduled for May 19. Patient was diagnosed with attenuated familial adenomatous polyposis. Genetic study confirmed. We have discuss this with patient that she should probably go for colon resection, however patient does not want to do that. She wants to go for colonoscopy and see how many polyps she will have this time. I have discussed with her and told her that several polyps were not removed and most likely additional polyps will grow due to her genetic makeup. Patient denies any issues at this time. Reports that she is moving her bowels without any problems. Patient denies any dyspepsia, dysphagia or odynophagia. Patient denies melena, hematochezia, unintentional weight loss or ribbon like stools. [facility] Medical History Sleep apnea Attenuated familial adenomatous polyposis Tubular adenoma Hx of migraines Herpes simplex Hypothyroidism (acquired) Constipation Hyperlipidemia Kuldip's thyroiditis Surgical History (Updated 05/16/24 @ 08:51 by Taylor Villavicencio RN) Hx of dilation and curettage H/O LEEP History of tonsillectomy History of endoscopy Hx of colonoscopy Hx of section Social History Are you a primary career development manager to a significant other at home: No Do you presently have visiting nurse or other home services: No Alcohol intake: current Alcohol intake frequency: holidays/special occasions only Alcohol type: wine Patient Tobacco Use Status: Never used Tobacco Sexual orientation: Straight/Heterosexual Gender identity: Female Female Reproductive History Menstrual Age of Menarche: 14 Review of Systems Const Denies weight gain and Denies weight loss ENT Reports no additional complaints, Denies dysphagia and Denies odynophagia Card Reports no additional complaints Resp Reports no additional complaints GI Denies abdominal pain, Denies belching, Denies melena, Denies bloating, Reports constipation, Denies dysphagia, Denies excessive flatus, Reports dyspepsia, Reports heartburn, Denies diarrhea, Denies loose stools, Denies nausea, Denies odynophagia and Denies vomiting Reports no additional complaints Musc Reports no additional complaints Neuro Reports no additional complaints Psych Reports no additional complaints Endo Reports no additional complaints Physical Exam Vital Signs: Last Vital Signs Pulse 96 04/27/24 16:13 BP 134/96 H 04/27/24 16:13 Pulse Ox 98 04/27/24 16:13 Oxygen Delivery Method Room Air 04/27/24 16:13 BMI result Body Mass Index 35.2 Const General: healthy appearing and no acute distress Nutritional Appearance: obese Orientation/consciousness: patient oriented x3 Resp Effort & Inspection: normal respiratory effort, able to speak in complete sentences, no tracheal deviation and symmetric chest movement Auscultation: clear to auscultation bilaterally Cardio Rate: regular rate GI Inspection: Yes normal to inspection, No distended and Yes obesity Palpation (GI): Soft to palpation, not firm, nontender and No hepatosplenomegaly present Auscultation: normal bowel sounds General: Yes no CVA tenderness Back/Spine/Pelvis Back: no CVA tenderness Skin General skin exam: elasticity normal, turgor normal and dry skin Neuro General: patient oriented x3 Psych Appearance: grossly normal Mental Status: mental status grossly normal Affect: Anxious affect present Assessment & Plan Assessment & Plan (1) Tubular adenoma: Code(s): D36.9 - Benign neoplasm, unspecified site Category: Medical (2) Attenuated familial adenomatous polyposis: Code(s): D13.91 - Familial adenomatous polyposis Category: Medical (3) Hypothyroid: Code(s): E03.9 - Hypothyroidism, unspecified Category: Medical Qualifiers: Hypothyroidism type: other Qualified Code(s): E03.8 - Other specified hypothyroidism (4) Constipation: Code(s): K59.00 - Constipation, unspecified Category: Medical Qualifiers: Constipation type: slow transit constipation Qualified Code(s): K59.01 - Slow transit constipation Plan Patient will start taking Dulcolax few days before procedure to make sure that she cleans well. Split MiraLax prep ordered. Long discussion with patient about good bowel prep. What to expect before during and after procedure discussed with patient. Clear liquid diet and good bowel prep discussed with patient. Patient is agreeable to current plan of care and verbalizes understanding of instructions. She was given the opportunity to ask questions and all questions answered. Thank you for allowing me to participate in her care Medications: New bisacodyl (Dulcolax (bisacodyl)) Start taking 2 tablet every night 7 days before the procedure and 1 day before procedure take 2 tablets at noon time followed by MiraLax prep 10 mg (2 x 5 mg) PO BEDTIME 14 tabs 0RF Z12.11 - Encounter for screening for malignant neoplasm of colon polyethylene glycol 3350 (Miralax) As directed by gastroenterology department at [facility] 238 grams PO ONCE 238 grams 0RF Z12.11 - Encounter for screening for malignant neoplasm of colon Coding Level of Care Code Est Pt Level 4 (02988) Complex EM visit Add On G2211 Diagnoses Tubular adenoma D36.9 Attenuated familial adenomatous polyposis D13.91 Other specified hypothyroidism E03.8 Hypothyroidism type: other Slow transit constipation K59.01 Constipation type: slow transit constipation Time Spent (min) 35 Comment 25 minutes spent with patient and additional 10 minutes spent reviewing her records
[2024-04-27 16:13] VITALS: BP 134/96; PULSE 96; O2SAT 98; BMI 35.2
== END ==
PROVIDERS: PCP Internal Medicine; Visit Provider Nurse Practitioner Family
DX: D36.9 Benign neoplasm, unspecified site (principal); D13.91 Familial adenomatous polyposis; E03.8 Other specified hypothyroidism; K59.01 Slow transit constipation
CPT/HCPCS: 99214

== ENCOUNTER → 2024-04-27 16:02 | Outpatient (BNVA) | payer BC, MEDICAID, SELFPAY | PROVIDERS: PCP Internal Medicine; Visit Provider Nurse Practitioner Family ==

== ENCOUNTER 2024-05-19 09:22 | Day surgery (SDC) | payer BC, MEDICAID, SELFPAY ==
[2024-05-16 08:52] VITALS: BMI 35.2
[2024-05-19 10:01] LABS: UPreg QC Valid YES; Urine Pregnancy NEGATIVE (NEGATIVE)
[2024-05-19 10:09] VITALS: BP 140/102; PULSE 79; RESP 16; TEMP 36.8; O2SAT 94; BMI 35.5
[2024-05-19] MEDS: Lactated Ringers 1,000 ML 50 ML IVCONT (10:26)
--- NOTE | 2024-05-19 10:42 | P.CONAN_ITS ---
[facility] Active Problems Active Problems: All Active Problems Ovarian cyst (Acute) Postmenopausal bleeding (Acute) Pelvic pain (Acute) High blood pressure (Acute) Well woman exam (Acute) Hypothyroid (Acute) Menorrhagia (Acute) Potential exposure to STD (Acute) Yeast dermatitis (Acute) Well woman exam with routine gynecological exam (Acute) Attenuated familial adenomatous polyposis (Acute) Tubular adenoma (Acute) Constipation (Acute) Past Medical History Medical History Sleep apnea Attenuated familial adenomatous polyposis Tubular adenoma Hx of migraines Herpes simplex Hypothyroidism (acquired) Constipation Hyperlipidemia Kuldip's thyroiditis Family History Family history of problems with anesthesia: No Surgical History Surgical History (Updated 05/16/24 @ 08:51 by Taylor Villavicencio RN) Hx of dilation and curettage H/O LEEP History of tonsillectomy History of endoscopy Hx of colonoscopy Hx of section History of Problems with Anesthesia: No Social History Social History Are you a primary childcare administrator to a significant other at home: No Do you presently have visiting nurse or other home services: No Alcohol intake: current Alcohol intake frequency: holidays/special occasions only Alcohol type: wine Patient Tobacco Use Status: Never used Tobacco Use of substances other than those prescribed or required for medical reasons: Yes Have you been hit, kicked, punched, or otherwise hurt by someone within the past year? If so, by whom?: No Are you DNR?: No Advance Directives: No Advance Directives Information Provided: Yes Recently lost weight without trying: No Nutrition Risks: No Nutritional Risk Patient : Yes FDLMP: 04/03/2025 Sexual orientation: Straight/Heterosexual Gender identity: Female Meds Allergies Allergy/AdvReac Type Severity Reaction Status Date / Time No Known Allergies Allergy Verified 05/19/24 10:26 Active Medications: Current Medications Lactated Ringer's (Lr) 1,000 mls @ 50 mls/hr IVCONT .Q20H WU Last Admin: 05/19/24 10:26 Dose: 50 mls/hr Home Medications ?Medication ?Instructions ?Recorded ?Confirmed ?Last Taken ?Type levothyroxine 100 mcg capsule 100 mcg PO DAILY 05/11/20 05/16/24 Unknown History valacyclovir 500 mg tablet 500 mg PO DAILY 02/14/21 07/08/23 Unknown History (Valtrex) amitriptyline 10 mg tablet 10 mg PO BEDTIME 02/13/23 05/16/24 Unknown History labetalol 100 mg tablet 100 mg PO BID 02/13/23 05/16/24 Unknown History sumatriptan succinate 25 mg tablet 25 mg PO DAILY 02/13/23 05/16/24 Unknown History tizanidine 4 mg tablet 4 mg PO BEDTIME 02/13/23 05/16/24 Unknown History topiramate 100 mg tablet 100 mg PO DAILY 02/13/23 05/16/24 Unknown History eletriptan 40 mg tablet 40 mg PO DAILY PRN Migraine 08/18/23 05/16/24 Unknown History Headache Exam Height,Weight and Vital Signs: Height 5 ft 6 in Weight 99.79 kg Last Vital Signs Temp 98.3 F 05/19/24 10:09 Pulse 79 05/19/24 10:09 Resp 16 05/19/24 10:09 BP 140/102 H 05/19/24 10:09 Pulse Ox 94 05/19/24 10:09 O2 Del Method Room Air 05/19/24 10:09 Pertinent Lab Results Pertinent Lab Results: Laboratory Tests 05/19/24 09:35 Urine Test NEGATIVE Airway Mallampati Class: III TM Dist: >3cm Neck ROM: Full Assessment and Plan Assessment Anesthesia Assessment: Anesthesia Plan Discussed and Chart Reviewed Final Anesthetic Review Family History of Problems with Anesthesia: No History of Problems with Anesthesia: No NPO: Yes ASA Class: III Final Preanesthetic Review: No Changes in Pt Med Stat, Meds/Allgs Chart Reviewed, Consent Obtained/Reviewed, Anes Risks/Benef Reviewed and DNR Form (If Appl.) Patient Risk: Intermediate Procedure Risk: Low Anesthetic Plan Anesthetic Plan: TIVA Disposition: Standard PACU
--- NOTE | 2024-05-19 10:47 | MHC.SHP ---
Pre-Procedural Eval Section A - 24 Hr Update-Section A only Date of Service: 05/19/24 The patient is an INPATIENT: No The patient has been examined within 24 hours of the surgical procedure. The History & Physical has been completed within 30 days and I have reviewed it.: Yes Section B - Complete if H&P > 30 days Chief Complaint: Attenuated FAP Allergies: Allergies Allergy/AdvReac Type Severity Reaction Status Date / Time No Known Allergies Allergy Verified 05/19/24 10:26 Plan Diagnosis/Plan: Unchanged I have reviewed the history and physical and performed a pertinent physical examination on my patient. No changes have occurred unless specified. Time Spent With Patient Time: Total time managing care of this patient today ____ minutes.
--- NOTE | 2024-05-19 12:02 | P.OPN-COLO_ITS ---
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 The procedure, indications, preparation and potential complications were reviewed with the patient, who indicated understanding and gave written informed consent to proceed. The endoscope was introduced through the mouth, and advanced to the 2nd part of the duodenum. The mucosa was carefully examined on slow withdrawal of the endoscope. The patient tolerated the procedure well. There were no immediate complications.? EGD Findings:? * Esophagus:? Normal esophageal mucosa was noted. The Z-line was at 37 cm. * Stomach:? The stomach fundus and body was inundated with hundreds of polyps with antral sparing. At least 10-12 represenative polyps were removed and retrieved via cold snare. * Duodenum:? Polypoid irregular mucosa was noted in the second portion of the duodenum. Cold forceps biopsies were taken to rule out duodenal adenoma given hx of aFAP. Colonoscopy Procedure:? The patient was then turned for the colonoscopy. A digital rectal exam was performed which was abnormal for external hemorrhoids? A distal attachment cap was affixed to the tip of the scope and the colonoscope was then inserted thr ough the anus and advanced through the colon and advanced to the cecum at 75 cm and terminal ileum.? Appendiceal orifice and ileocecal valve were identified. Mucosa was carefully examined under high definition white light as the instrument was slowly withdrawn in a retrograde panoramic fashion. Retroflexion was performed in rectum. The procedure was not difficult. The quality of the prep was BBPS: 1+2+2 = inadequate in cecum Withdrawal time 30 minutes Limitations: No limitations Findings: Mucosa: Numerous duminitive polyps present throughout the colon estimated around 40-50. Cecum not adequately visualised due to semi solid stool. The mucosa in right side of the colon appeared edematous with loss of normal vascular pattern. Cold forceps biopsies were taken for histology. Protruding lesions: * 5 sessile polyps of size 3-4 mm in ascending colon. Cold snare polypectomy was performed. The polyps were completely removed and retrieved. * 13 sessile polyps of size 2-6 mm in transverse colon. Cold snare polypectomy was performed. The polyps were completely removed and retrieved. * 8 sessile polyps of size 3-6 mm in desending colon. Cold snare polypectomy was performed. The polyps were completely removed and retrieved. * 10 sessile polyps of size 2-5 mm in sigmoid colon. Cold snare polypectomy was performed. The polyps were completely removed and retrieved. * Small internal hemorrhoids without stigmata of recent bleeding. Impression: 1. Normal esophagus 2. Gastric polyps suspicious for GAPPS (polypectomy) 3. Duodenal polyp (biopsy) 4. Abnormal R sided colon mucosa (biopsy) 5. Numerous colon polyps out of which around 36 removed today 5. Internal and external hemorrhoids Recommendations:?? * Follow-up path results * If duodenal polyp is an adenoma, will need dedicated side viewing endoscopy (ERCP scope) for complete removal * Patient again counseled on pursuing genetics and surgery referral. Has strong family history with CRC in father and multiple siblings with hx of total colectomy due to FAP. Pt was again counseled that even with attenuated FAP the lifetime risk of CRC approaches 70-80%. * Pt wonders about second opinion which is reasonable. Both [facility] and [facility] have hereditary GI cancer centers.
[2024-05-19 12:10] VITALS: BP 103/78; PULSE 97; RESP 16; TEMP 36.1; O2SAT 98
[2024-05-19 12:25] VITALS: BP 130/79; PULSE 83; RESP 16; TEMP 36.4; O2SAT 98
== END 2024-05-19 13:10 | disposition home or self-care (01) ==
PROVIDERS: Anesthesiology; PCP Internal Medicine; Visit Provider Internal Medicine
PROC: (CPT 45385; principal; 2024-05-19 11:40)
DX: D12.2 Benign neoplasm of ascending colon (principal); D12.3 Benign neoplasm of transverse colon; D12.4 Benign neoplasm of descending colon; D12.5 Benign neoplasm of sigmoid colon; D13.91 Familial adenomatous polyposis; K64.8 Other hemorrhoids; K64.4 Residual hemorrhoidal skin tags; Z86.0101 Personal history of adenomatous and serrated colon polyps; Z80.0 Family history of malignant neoplasm of digestive organs; D13.2 Benign neoplasm of duodenum; K20.90 Esophagitis, unspecified without bleeding; K29.70 Gastritis, unspecified, without bleeding; I10 Essential (primary) hypertension; E78.5 Hyperlipidemia, unspecified; E03.9 Hypothyroidism, unspecified; G47.33 Obstructive sleep apnea (adult) (pediatric); Z79.899 Other long term (current) drug therapy
CPT/HCPCS: 45385; 45380; 43251; 43239; 81025; 88305; 88342; J2003; J2704

== ENCOUNTER → 2024-05-19 09:22 | Outpatient (BNV) | payer BC, MEDICAID, SELFPAY | PROVIDERS: PCP Internal Medicine; Visit Provider Internal Medicine | DX: D13.91 Familial adenomatous polyposis (principal); Z86.0100 Personal history of colon polyps, unspecified; Z80.0 Family history of malignant neoplasm of digestive organs; D12.5 Benign neoplasm of sigmoid colon; D12.3 Benign neoplasm of transverse colon; K31.7 Polyp of stomach and duodenum | CPT/HCPCS: 43239; 43251; 45380; 45385 ==

== ENCOUNTER → 2024-05-27 16:27 | Outpatient (BNVA) | payer BC, MEDICAID, SELFPAY | PROVIDERS: PCP Internal Medicine; Visit Provider Nurse Practitioner Family ==

== ENCOUNTER → 2024-05-27 16:27 | Outpatient (AMB) | payer BC, MEDICAID, SELFPAY ==
--- NOTE | 2024-05-27 16:28 | A.OFFVIS_ITS ---
Vital Signs 05/27/24 16:29 Height 5 ft 6 in Weight 219 lb 2.232 oz BMI 35.4 BP 152/96 H Blood Pressure Location Rt brachial Position Sitting Pulse 86 Pulse Source Pulse Oximeter Pulse Oximetry (%) 96 Oxygen Delivery Method Room Air Intake Visit Reasons: 1 mos FUV. S/P w/ Dr. Guadalupe Intake Note: ESTABLISHED PATIENT Reason; scheduled in office 1 mos FUV and s/p Changes/concerns? 2nd opinion. Worsening results of colo despite original plan. Pt also reports that she has not been able to get or start taking magic mouthwash, famotidine, pantoprazole. Pt also needs refill of bisacodyl. Pt also needs new Rx of miralax. Pharmacy verified? [facility] Expert Witness Required: No Allergies No Known Allergies Allergy (Verified 06/03/24 14:54) HPI HPI 1 mos FUV. S/P w/ Dr. Guadalupe: Details: LAST VISIT: Tubular adenoma Attenuated familial adenomatous polyposis Hypothyroid Constipation Plan Patient will start taking Dulcolax few days before procedure to make sure that she cleans well. Split MiraLax prep ordered. Long discussion with patient about good bowel prep. What to expect before during and after procedure discussed with patient. Clear liquid diet and good bowel prep discussed with patient. Patient is agreeable to current plan of care and verbalizes understanding of instructions. She was given the opportunity to ask questions and all questions answered. ? Thank you for allowing me to participate in her care Medications New bisacodyl (Dulcolax (bisacodyl)) Start taking 2 tablet every night 7 days before the procedure and 1 day before procedure take 2 tablets at noon time followed by MiraLax prep 10 mg (2 x 5 mg) PO BEDTIME 14 tabs 0RF Z12.11 polyethylene glycol 3350 (Miralax) As directed by gastroenterology department at [facility] 238 grams PO ONCE 238 grams 0RF Z12.11 UPPER ENDO AND COLONOSCOPY EGD Findings:? * Esophagus:? Normal esophageal mucosa was noted. The Z-line was at 37 cm. * Stomach:? The stomach fundus and body was inundated with hundreds of polyps with antral sparing. At least 10-12 represenative polyps were removed and retrieved via cold snare. * Duodenum:? Polypoid irregular mucosa was noted in the second portion of the duodenum. Cold forceps biopsies were taken to rule out duodenal adenoma given hx of aFAP. Colonoscopy Procedure:? The patient was then turned for the colonoscopy. A digital rectal exam was performed which was abnormal for external hemorrhoids? A distal attachment cap was affixed to the tip of the scope and the colonoscope was then inserted through the anus and advanced through the colon and advanced to the cecum at 75 cm and terminal ileum.? Appendiceal orifice and ileocecal valve were identified. Mucosa was carefully examined under high definition white light as the instrume nt was slowly withdrawn in a retrograde panoramic fashion. Retroflexion was performed in rectum. The procedure was not difficult. The quality of the prep was BBPS: 1+2+2 = inadequate in cecum Withdrawal time 30 minutes Limitations: No limitations Findings: Mucosa: Numerous duminitive polyps present throughout the colon estimated around 40-50. Cecum not adequately visualised due to semi solid stool. The mucosa in right side of the colon appeared edematous with loss of normal vascular pattern. Cold forceps biopsies were taken for histology. Protruding lesions: * 5 sessile polyps of size 3-4 mm in ascending colon. Cold snare polypectomy was performed. The polyps were completely removed and retrieved. * 13 sessile polyps of size 2-6 mm in transverse colon. Cold snare polypectomy was performed. The polyps were completely removed and retrieved. * 8 sessile polyps of size 3-6 mm in desending colon. Cold snare polypectomy was performed. The polyps were completely removed and retrieved. * 10 sessile polyps of size 2-5 mm in sigmoid colon. Cold snare polypectomy was performed. The polyps were completely removed and retrieved. * Small internal hemorrhoids without stigmata of recent bleeding.Impression: 1. Normal esophagus 2. Gastric polyps suspicious for GAPPS (polypectomy) 3. Duodenal polyp (biopsy) 4. Abnormal R sided colon mucosa (biopsy) 5. Numerous colon polyps out of which around 36 removed today 5. Internal and external hemorrhoids Recommendations:?? * Follow-up path results * If duodenal polyp is an adenoma, will need dedicated side viewing endoscopy (ERCP scope) for complete removal * Patient again counseled on pursuing genetics and surgery referral. Has strong family history with CRC in father and multiple siblings with hx of total colectomy due to FAP. Pt was again counseled that even with attenuated FAP the lifetime risk of CRC approaches 70-80%. * Pt wonders about second opinion which is reasonable. Both [facility] and [facility] have hereditary GI cancer centers. PATHOLOGY: Diagnosis A. Duodenal polyp: Tubular adenoma; negative for high-grade dysplasia and carcinoma. B. Gastric polyps: Consistent with fundic gland polyps, multiple pieces; negative for H. pylori, intestinal metaplasia and dysplasia, and fragment of degenerated duodenal mucosa (consistent with contaminant from part A). C. Colon, sigmoid, polyps: Tubular adenomas, multiple pieces; negative for high- grade dysplasia and carcinoma. D. Colon, right, abnormal mucosa, biopsy: Colonic mucosa with lamina propria con gestion and hemorrhage, otherwise no specific change. E. Colon, ascending, polyps: Tubular adenomas, multiple pieces; negative for high-grade dysplasia and carcinoma. F. Colon, transverse, polyps: Tubular adenomas, multiple pieces; negative for high-grade dysplasia and carcinoma. G. Colon, descending, polyps: Tubular adenoma (1 piece); negative for high-grade dysplasia and carcinoma TODAY'S VISIT: Patient is here today for follow-up and to discuss upper endoscopy and colonoscopy results. Patient had large amount of polyps again in such a short time. Thirty-six polyps total removed about 50 or so polyps found. Patient was consulted by Dr. Guadalupe about total colectomy again after her procedure. Patient is very upset as she does not believe that this could be true. Patient however admitted to Dr. Guadalupe that some of her siblings had total colectomy as well as her father. Tubular adenoma found in the duodenum as well as fundic gland polyps found in her stomach. Going for yearly or even every 8 months colonoscopy might not prevent her from getting colon cancer as like Dr. Guadalupe mentioned there is a chance of 70-80% being at risk for CRC. She does have a very strong family history. It appears that she is not accepting this diagnosis. Patient states that she changed her diet and is doing what she is supposed to and she has arthur. Patient is frustrated, reports that she is praying for better diagnosis. Patient is in disbelieve. As Dr. Guadalupe recommended patient should go to tertiary center for 2nd opinion and evaluation. [facility] and [facility] have hereditary GI cancer centers that my help her get the answer of what would be the best option for her. Chance of getting small-bowel cancer as tubular adenoma was also found in her duodenum and needs to be removed. Patient reports that she is frequently constipated. Currently not taking PPI or H2 kenney as pharmacy did not refill it for her. [facility] Medical History Sleep apnea Attenuated familial adenomatous polyposis Tubular adenoma Hx of migraines Herpes simplex Hypothyroidism (acquired) Constipation Hyperlipidemia Kuldip's thyroiditis Surgical History Hx of dilation and curettage H/O LEEP History of tonsillectomy History of endoscopy Hx of colonoscopy Hx of section Social History Are you a primary child care attendant to a significant other at home: No Do you presently have visiting nurse or other home services: No Alcohol intake: current Alcohol intake frequency: holidays/special occasions on ly Alcohol type: wine Patient Tobacco Use Status: Never used Tobacco Sexual orientation: Straight/Heterosexual Gender identity: Female Female Reproductive History Menstrual Age of Menarche: 14 Review of Systems Const Denies weight gain and Denies weight loss ENT Reports no additional complaints, Denies dysphagia and Denies odynophagia Card Reports no additional complaints Resp Reports no additional complaints GI Denies abdominal pain, Denies belching, Denies melena, Denies bloating, Denies change in bowel habits, Denies dysphagia, Denies excessive flatus, Denies dyspepsia, Denies heartburn, Denies diarrhea, Denies loose stools, Denies nausea, Denies odynophagia and Denies vomiting Musc Reports no additional complaints Neuro Reports no additional complaints Psych Reports no additional complaints Endo Reports no additional complaints Physical Exam Vital Signs: Last Vital Signs Pulse 86 05/27/24 16:29 BP 152/96 H 05/27/24 16:29 Pulse Ox 96 05/27/24 16:29 Oxygen Delivery Method Room Air 05/27/24 16:29 BMI result Body Mass Index 35.4 Const General: healthy appearing and no acute distress Nutritional Appearance: obese Orientation/consciousness: patient oriented x3 Resp Effort & Inspection: normal respiratory effort, able to speak in complete sentences, no tracheal deviation and symmetric chest movement Auscultation: clear to auscultation bilaterally Cardio Rate: regular rate GI Inspection: Yes normal to inspection, No distended and Yes obesity Palpation (GI): Soft to palpation, not firm, nontender and No hepatosplenomegaly present Auscultation: normal bowel sounds General: Yes no CVA tenderness Back/Spine/Pelvis Back: no CVA tenderness Skin General skin exam: elasticity normal, turgor normal and dry skin Neuro General: patient oriented x3 Psych Appearance: grossly normal Mental Status: mental status grossly normal Affect: Anxious affect present Assessment & Plan Assessment & Plan (1) Tubular adenoma: Code(s): D36.9 - Benign neoplasm, unspecified site Category: Medical (2) Attenuated familial adenomatous polyposis: Code(s): D13.91 - Familial adenomatous polyposis Category: Medical (3) Hypothyroid: Code(s): E03.9 - Hypothyroidism, unspecified Category: Medical Qualifiers: Hypothyroidism type: other Qualified Code(s): E03.8 - Other specified hypothyroidism (4) Constipation: Code(s): K59.00 - Constipation, unspecified Category: Medical Qualifiers: Constipation type: slow transit constipation Qualified Code(s): K59.01 - Slow transit constipation (5) GERD (gastroesophageal reflux disease): Code(s): K21.9 - Gastro-esophageal reflux disease without esophagitis Qualifiers: Esophagitis presence: without esophagitis Qualified Code(s): K21.9 - Gastro-esophageal reflux disease without esophagitis Plan Patient will be referred to [facility] or [facility] depending on how soon she can get an appointment. As mentioned above in HPI this was discussed with patient in great detail. Patient will also need counseling. Continue Dulcolax and MiraLax daily. Patient has an appointment already set up for next visit. We will discuss her options. Patient is agreeable to this plan and verbalizes understanding of instructions. She was given the opportunity to ask questions and all questions answered. Thank you for allowing me to participate in her care Medications: New polyethylene glycol 3350 (Miralax) 17 grams PO DAILY 510 grams 2RF bisacodyl (Dulcolax (bisacodyl)) 10 mg (2 x 5 mg) PO BEDTIME 180 tabs 2RF Discontinued Magic Mouthwash Diphen/Lido/Antacid 1:1:1 Lidocaine Viscous 2 % 80mL; diphenhydramine 12.5 mg/5 mL 80mL; aluminum-mag hydrox-simeth [id number]/5mL 80mL Discontinued Reason: Doctor's Order 10 mL PO TID-QID 2 days PRN 80 mL 0RF mouth pain famotidine Discontinued Reason: Doctor's Order 40 mg PO BEDTIME 90 tabs 3RF K21.9 - Gastro-esophageal reflux disease without esophagitis Coding Level of Care Code Est Pt Level 4 (78049) Complex EM visit Add On G2211 Diagnoses Tubular adenoma D36.9 Attenuated familial adenomatous polyposis D13.91 Other specified hypothyroidism E03.8 Hypothyroidism type: other Slow transit constipation K59.01 Constipation type: slow transit constipation Gastroesophageal reflux disease without esophagitis K21.9 Esophagitis presence: without esophagitis Time Spent (min) 40 Comment 25 minutes spent with patient and additional 15 minutes spent reviewing her records
[2024-05-27 16:29] VITALS: BP 152/96; PULSE 86; O2SAT 96; BMI 35.4
== END ==
PROVIDERS: PCP Internal Medicine; Visit Provider Nurse Practitioner Family
DX: D36.9 Benign neoplasm, unspecified site (principal); D13.91 Familial adenomatous polyposis; E03.8 Other specified hypothyroidism; K59.01 Slow transit constipation; K21.9 Gastro-esophageal reflux disease without esophagitis
CPT/HCPCS: 99214

== ENCOUNTER 2024-05-30 14:29 | Outpatient (AMB) | payer BC, MEDICAID, SELFPAY ==
--- NOTE | 2024-05-30 14:29 | MHC.OFFVIS ---
Intake Visit Reasons: TV med follow u/DO NOT RS Allergies No Known Allergies Allergy (Verified 05/27/24 16:31) HPI Comments Details: The patient is scheduled tele health visit for follow-up. Has been taking cyclic Provera had regular except for last month where she did not have her menstrual cycle at all. No other associated symptoms PFSH Medical History Sleep apnea Attenuated familial adenomatous polyposis Tubular adenoma Hx of migraines Herpes simplex Hypothyroidism (acquired) Constipation Hyperlipidemia Kuldip's thyroiditis Surgical History Hx of dilation and curettage H/O LEEP History of tonsillectomy History of endoscopy Hx of colonoscopy Hx of section Social History Are you a primary women's health care nurse practitioner to a significant other at home: No Do you presently have visiting nurse or other home services: No Alcohol intake: current Alcohol intake frequency: holidays/special occasions only Alcohol type: wine Patient Tobacco Use Status: Never used Tobacco Sexual orientation: Straight/Heterosexual Gender identity: Female Female Reproductive History Menstrual Age of Menarche: 14 Review of Systems Const All systems reviewed & are unremarkable except as noted in HPI and below Reports as per HPI and Reports no additional complaints GI Reports no additional complaints Reports no additional complaints Telehealth Telehealth Telehealth Platform: [facility] Location of provider rendering services: practice address Location of patient: address on file Patient Identification confirmed using: Name, : Yes Telehealth method: video Patient verbally consented to treatment: Yes Patient verbally consented to billing insurance company: Yes Patient informed of any privacy concerns related to visit: Yes Assessment & Plan Assessment & Plan (1) Amenorrhea: Code(s): N91.2 - Amenorrhea, unspecified Category: Medical Plan: FSH/LH ordered. Discussed with the patient possible causes of amenorrhea including menopause. Instructions given the patient to discontinue Provera for the time being, and to have FSH/LH done and schedule a follow-up appointment within 2 weeks. All questions answered, the patient verbalized understanding. I spent a total of 20 minutes reviewing the chart, talking to the patient via video and documenting in the medical record. Orders: Orders Follicle Stimulating Hormone Today N91.2 - Amenorrhea, unspecified Lutenizing Hormone Today N91.2 - Amenorrhea, unspecified Coding Level of Care Code Tele Est Pt Level 3 (10069) Diagnoses Amenorrhea N91.2
== END 2024-05-30 15:43 | disposition home or self-care (01) ==
LOC: HO.HWS 14:29
PROVIDERS: PCP Internal Medicine; Visit Provider Obstetrics & Gynecology
DX: N91.2 Amenorrhea, unspecified (principal)
CPT/HCPCS: 99213

== ENCOUNTER → 2024-05-30 14:29 | Outpatient (BNVA) | payer BC, MEDICAID, SELFPAY | PROVIDERS: PCP Internal Medicine; Visit Provider Obstetrics & Gynecology ==

== ENCOUNTER 2024-06-03 14:21 | Outpatient (REF) | payer BC, MEDICAID, SELFPAY ==
[2024-06-03 17:29] LABS: Estimated Average Glucose 131 mg/dL; Hemoglobin A1C 155.8627 umol/L; Hemoglobin A1c % 6.2 % (<6.0); Total Hemoglobin (HGBA1C) 3542.9646 umol/L
[2024-06-04 12:20] LABS: Follicle Stimulating Hormone 26.2 mIU/mL; Lutenizing Hormone 11.2 mIU/mL
== END 2024-06-03 14:22 | disposition home or self-care (01) ==
LOC: HO.LAB 14:21
PROVIDERS: PCP Internal Medicine; Referring Provider Nurse Practitioner Family; Visit Provider Obstetrics & Gynecology
DX: N91.2 Amenorrhea, unspecified (principal); Z83.3 Family history of diabetes mellitus; Z13.1 Encounter for screening for diabetes mellitus
CPT/HCPCS: 36415; 83001; 83002; 83036

== ENCOUNTER → 2024-06-16 15:31 | Outpatient (BNVA) | payer BC, MEDICAID, SELFPAY | PROVIDERS: PCP Internal Medicine; Visit Provider Physician Assistant Surgical ==

== ENCOUNTER 2024-06-28 16:26 | Outpatient (AMB) | payer BC, MEDICAID, SELFPAY ==
[2024-06-28 16:27] VITALS: BP 130/62; PULSE 100; O2SAT 98; BMI 36.4
--- NOTE | 2024-06-28 16:27 | A.OFFVIS_ITS ---
Vital Signs 06/28/24 16:27 Height 5 ft 6 in Weight 225 lb 12.054 oz BMI 36.4 BP 130/62 Blood Pressure Location Rt brachial Position Sitting Pulse 100 Pulse Source Pulse Oximeter Pulse Oximetry (%) 98 Oxygen Delivery Method Room Air Intake Visit Reasons: 4 wks f/u discuss plan Intake Note: ESTABLISHED PATIENT for Attenuated familial adenomatous polyposis mgmt. Pt picking up colo photos. Chief Complaint; No new concerns. Pt is still very stressed and wanting to have another colonoscopy prior to being seen at [facility] as she wants to attempt to control the growth of polyps until she can be seen in the Summer of 2024. Water Resources Technical Officer Required: No Accompanied by: Self / Same As Patient Allergies No Known Allergies Allergy (Verified 06/28/24 16:45) HPI HPI 4 wks f/u discuss plan: Details: LAST VISIT: ubular adenoma Attenuated familial adenomatous polyposis Constipation GERD (gastroesophageal reflux disease) Plan Patient will call [facility]. Referral sent. RN to fax all office notes and colonoscopy results. Will try to get actual pictures of the procedures if able to. Patient will continue H2 kenney. Avoid PPI due to gastric polyposis syndrome. Continue MiraLax and Dulcolax. Increase fluid intake and activity to promote better bowel motility. Patient will be sent to vascular surgery. Patient has appointment with us already, will call us if she will have any GI concerning symptoms. The goal is to have patient try to get in with [facility] to get 2nd opinion. Patient is agreeable to current plan of care and verbalizes understanding of instructions. She was given the opportunity to ask questions and all questions answered. ? Thank you for allowing me to participate in her care Orders Orders Hemoglobin A1c 06/03/24 Z83.3 Referrals Gastroenterology Referral D13.91, D36.9 Vascular Surgery Referral I87.2 TODAY'S VISIT Patient is here today for follow-up. Patient spoke to [facility] staff and will be having phone interview and appointment end of July and then again in September. Patient is upset as she wanted to be seen sooner. Patient is frustrated and wants some answers before then. Patient does not want to wait till summer because she wants to take the summer off and travel with her son. Patient just had her colonoscopy couple months ago as well as upper endoscopy and we discussed that she does not need to go for colonoscopy now. What she needs is to have endoscopy with polypectomy of duodenal polyp that biopsy showed tubular adenoma. We have discussed this case previously with Dr. Guadalupe and Dr. Irene and we agreed to get this done here if patient is not able to be seen in [place] sooner. Patient reports that she is moving her bowels well is taking MiraLax and Dulcolax daily. Sometimes she admits that she is constipated patient is taking Pepcid. Denies any nausea or vomiting. Denies any melena, hematochezia, unintentional weight loss or ribbon like stools. PFSH Medical History Sleep apnea Attenuated familial adenomatous polyposis Tubular adenoma Hx of migraines Herpes simplex Hypothyroidism (acquired) Constipation Hyperlipidemia Kuldip's thyroiditis Surgical History Hx of dilation and curettage H/O LEEP History of tonsillectomy History of endoscopy Hx of colonoscopy Hx of section Social History Are you a primary critical care paramedic to a significant other at home: No Do you presently have visiting nurse or other home services: No Alcohol intake: current Alcohol intake frequency: holidays/special occasions only Alcohol type: wine Patient Tobacco Use Status: Never used Tobacco Sexual orientation: Straight/Heterosexual Gender identity: Female Female Reproductive History Menstrual Age of Menarche: 14 Review of Systems Const Denies weight gain and Denies weight loss ENT Reports no additional complaints, Denies dysphagia and Denies odynophagia Card Reports no additional complaints Resp Reports no additional complaints GI Denies abdominal pain, Denies belching, Denies melena, Denies bloating, Denies change in bowel habits, Denies dysphagia, Denies excessive flatus, Denies dyspepsia, Reports heartburn, Denies diarrhea, Denies loose stools, Denies nausea, Denies odynophagia and Denies vomiting Reports no additional complaints Musc Reports no additional complaints Skin/Breast Details: Patient describes her toes red and swollen Neuro Reports no additional complaints Psych Reports no additional complaints Endo Reports no additional complaints Physical Exam Vital Signs: Last Vital Signs Pulse 100 06/28/24 16:27 BP 130/62 06/28/24 16:27 Pulse Ox 98 06/28/24 16:27 Oxygen Delivery Method Room Air 06/28/24 16:27 BMI result Body Mass Index 36.4 Const General: healthy appearing and no acute distress Nutritional Appearance: obese Orientation/consciousness: patient oriented x3 Resp Effort & Inspection: normal respiratory effort, able to speak in complete sentences, no tracheal deviation and symmetric chest movement Auscultation: clear to auscultation bilaterally Cardio Rate: regular rate GI Inspection: Yes normal to inspection, No distended and Yes obesity Palpation (GI): Soft to palpation, not firm, nontender and No hepatosplenomegaly present Auscultation: normal bowel sounds General: Yes no CVA tenderness Back/Spine/Pelvis Back: no CVA tenderness Skin General skin exam: elasticity normal, turgor normal and dry skin Neuro General: patient oriented x3 Extrem Other: Bilateral feet with red and inflamed toes, decreased capillary refill. Bilateral feet edema General: No no clubbing, cyanosis or edema Psych Appearance: grossly normal Mental Status: mental status grossly normal Affect: Anxious affect present Assessment & Plan Assessment & Plan (1) Tubular adenoma: Code(s): D36.9 - Benign neoplasm, unspecified site Category: Medical (2) Attenuated familial adenomatous polyposis: Code(s): D13.91 - Familial adenomatous polyposis Category: Medical (3) Constipation: Code(s): K59.00 - Constipation, unspecified Category: Medical Qualifiers: Constipation type: slow transit constipation Qualified Code(s): K59.01 - Slow transit constipation (4) GERD (gastroesophageal reflux disease): Code(s): K21.9 - Gastro-esophageal reflux disease without esophagitis Qualifiers: Esophagitis presence: esophagitis presence not specified Qualified Code(s): K21.9 - Gastro-esophageal reflux disease without esophagitis Plan Continue Dulcolax and MiraLax. Patient was encouraged to increase fluid intake and activity to promote better bowel motility. Continue Pepcid. Avoid dietary triggers and late night snacking. Staying upright for minimum 3 hours after meals discussed with patient. Patient was encouraged to keep her appointment with [place]. Will discuss with Dr. Irene and schedule patient for upper endoscopy to remove duodenal tubular adenoma. Patient will follow-up in the office in 2 in 3 months. She will call us if she will have any GI concerning symptoms. She is agreeable to this plan and verbalizes understanding of instructions. She was given the opportunity to ask questions and all questions answered. Thank you for allowing me to participate in her care Coding Level of Care Code Est Pt Level 4 (04276) Complex EM visit Add On G2211 Diagnoses Tubular adenoma D36.9 Attenuated familial adenomatous polyposis D13.91 Slow transit constipation K59.01 Constipation type: slow transit constipation Gastroesophageal reflux disease, unspecified whether esophagitis present K21.9 Esophagitis presence: esophagitis presence not specified Time Spent (min) 35 Comment 25 minutes spent with patient and additional 10 minutes spent reviewing her records
--- OUTSIDE RECORDS SUMMARY | 2024-06-28 16:28 | XMS_ITS | Encounter Summary ---
Author Organization [facility] Address [address] [place] [address] Care Team Providers Care Reconciliation Manager Name Role Phone Ericka Contreras MD Primary Care Provider Reason for Referral * Consultation (Routine) - Pending Review Specialty Diagnoses / Procedures Referred By Jay coker Referred To Contact Neurology Diagnoses Wyatt Russell MD [address] [address] Referral ID Status Reason Start Date Expiration Date Visits Requested Visits Authorized [id number] Pending Review Specialty Services Required 06/10/2024 06/10/2025 1 1 * Consultation (Urgent) - Authorized Specialty Diagnoses / Procedures Referred By Jay coker Referred To Contact Rheumatology Diagnoses Raynaud's disease without gangrene Pain in lateral portion of left knee Wyatt Lucas MD [address] [address] [facility] [address] [address] Referral ID Status Reason Start Date Expiration Date Visits Requested Visits Authorized [id number] Authorized Specialty Services Required 06/10/2024 06/10/2025 1 1 Reason for Visit * Reason Comments CIRCULATION CONCERNS Encounter Details Date Type Department Care Team ([facility] st Contact Info) Description 06/10/2024 12:30 PM EST Office Visit Internal Medicine - [place] [address] [phone] Wyatt Lucas MD [address] [place] [address] Raynaud's disease without gangrene (Primary Dx); Myokymia; Pain in lateral portion of left knee Social History Tobacco Use Types Packs/Day Years Used Date Smoking Tobacco: Never Smokeless Tobacco: Never Alcohol Use Standard Drinks/Week Comments No 0 (1 standard drink = 0.6 oz pur e alcohol) Sex and Gender Information Value Date Recorded Sex Assigned at Female 05/19/2024 3:48 PM EST Gender Identity Female 05/19/2024 3:48 PM EST Sexual Orientation Straight 05/19/2024 3: 48 PM EST Job Start Date Occupation Industry Not on file Not on file Not on file documented as of this encounter Last Filed Vital Signs Vital Sign Reading Time Taken Comments Blood Pressure 130/88 06/10/2024 12:17 PM EST Pulse 82 06/10/2024 12:17 PM EST Temperature 36.6 ??C (97.9 ??F) 06/10/2024 12:[address] Respiratory Rate - - Oxygen Saturation 98% 06/10/2024 12:17 PM EST Inhaled Oxygen Concentration - - Weight 98.1 kg (216 lb 3.2 oz) 06/10/2024 12:17 PM EST Height - - Body Mass Index 34.9 03/14/2024 1:33 PM EDT documented in this encounter Ordered Prescriptions Prescription Sig Dispensed Refills Start Date End Da te amLODIPine (NORVASC) 2.5 mg tablet Take 1 tablet (2.5 mg total) by mouth 1 (one) time each day. 30 each 06/10/2024 12/07/2024 documented in this encounter Progress Notes * Wyatt Lucas MD - 06/10/2024 12:30 PM EST COMPLAINT IDENTIFIER: Yamilet Kramer is a 53 y.o. old female. HPI: pinkish discoloration of multiple toes on the feet and hand for months together. Did see the solution spec. Has a diagnosis of familial adenomatous polyposis. Following up at [facility] she says soon. ROS: GENERAL: No malaise, significant weight loss or fever RESPIRATORY: No cough, wheezing or shortness of breath CARDIOVASCULAR: No chest pain, leg swelling or palpitations GI: No abdominal discomfort, blood in stools or black stools PAST MEDICAL HISTORY: Patient Active Problem List Diagnosis Date Noted Class 2 severe obesity with serious comorbidity and body mass index (BMI) of 35.0 to 35.9 in adult ([facility]) 04/01/2024 Migraine without aura and without status migrainosus, not intractable 02/22/2024 HTN (hypertension), benign 09/23/2023 Dyspnea on exertion 06/14/2021 Hyperlipemia, mixed 06/14/2021 Palpitations 06/14/2021 Chest pain 05/22/2021 Onychomycosis 05/22/2021 Lateral epicondylitis of left elbow 04/19/2018 Left shoulder pain 04/19/2018 Breast lump on right side at 1 o'clock position 12/10/2017 Constipation 09/16/2017 Herpes simplex type 1 infection 12/11/2016 Hypothyroidism (acquired) 06/28/2014 Pityriasis rosea 07/20/2012 Past Surgical History: Procedure Laterality Date SECTION PROCEDURE: MS DELIVERY ONLY OTHER SURGICAL HISTORY PROCEDURE: HISTORY OTHER; COMMENT: cervical cryosurgery TONSILLECTOMY PROCEDURE: HISTORICAL TONSILLECTOMY SOCIAL HISTORY: Social History Tobacco Use Smoking status: Never Smokeless tobacco: Never Substance Use Topics Alcohol use: No FAMILY HISTORY: Family History Problem Relation Name Age of Onset Other (Other: familial cardiomyopathy) Father colon polyps, colon cancer Other (Other: familial cardiomyopathy) Sister MEDICATIONS DISCONTINUED/REORDERED: There are no discontinued medications. ACTIVE MEDICATIONS: Outpatient Medications Marked as Taking for the 06/10/24 encounter (Office Visit) with Wyatt Lucas MD Medication Sig Dispense Refill amitriptyline (ELAVIL) 10 mg tablet Take 1 Tablet by mouth at bedtime as needed for Sleep. blood pressure monitor (Blood Pressure Kit) kit 1 Units by Does not apply route daily. cholecalciferol (Vitamin D3) 50 mcg (2,000 unit) tablet Take 1 tablet (2,000 Units total) by mouth 1 (one) time each day. 90 tablet 2 docusate sodium (COLACE) 100 mg capsule Take 1 Capsule by mouth 2 times daily. labetaloL (NORMODYNE) 100 mg tablet TAKE 1 TABLET BY MOUTH TWICE A DAY levothyroxine (SYNTHROID, LEVOTHROID) 100 mcg tablet TAKE 1 TABLET BY MOUTH EVERY DAY BEFORE BREAKFAST 90 tablet 1 meloxicam (MOBIC) 7.5 mg tablet Take 1 Tablet by mouth daily nystatin (MYCOSTATIN) 100,000 unit/gram powder APPLY LOCALLY TWICE A DAY SUMAtriptan (IMITREX) 25 mg tablet MAY REPEAT DOSE ONCE AFTER 2 HOURS, IF NEEDED. topiramate (TOPAMAX) 100 mg tablet Take 1 Tablet by mouth daily. valACYclovir (VALTREX) 500 mg tablet TAKE 1 TABLET BY MOUTH EVERY DAY 90 tablet 1 ALLERGIES: No Known Allergies PHYSICAL EXAM: Vitals: 06/10/24 1217 BP: 130/88 Pulse: 82 Temp: 36.6 ??C (97.9 ??F) SpO2: 98% APPEARANCE: Alert and in no acute distress EARS: External ears normal. Pinkish discoloration of multiple toes bilaterally as well as dystrophic nails present. LABS: Lab Results Component Value Date WBC 7.1 05/03/2024 HGB 13.2 05/03/2024 HCT 39.0 05/03/2024 MCV 95.4 05/03/2024 Lab Results Component Value Date NA 142 05/03/2024 K 4.1 05/03/2024 CO2 27 05/03/2024 CL 108 05/03/2024 BUN 14 05/03/2024 ALKPHOS 116 05/03/2024 No results found for: TSH Lab Results Component Value Date HGBA1C 6.4 05/03/2024 CHOL 179 05/03/2024 LDL 116 (A) 02/05/2023 HDL 53 05/03/2024 TRIG 155 (H) 05/03/2024 No components found for: URINELEUK , URINENITR , URINEPRO , URINEPH , URINEBLD , URINESG , URINEKET , URINEBILI , URINEGLUC IMAGING: IMPRESSION: 1. Raynaud's disease without gangrene Ambulatory referral to Rheumatology 2. Myokymia Ambulatory referral to Neurology 3. Pain in lateral portion of left knee XR Knee 3 Views Left Ambulatory referral to Rheumatology PLAN: SOCIAL HISTORY: Social History Tobacco Use Smoking status: Never Smokeless tobacco: Never Substance Use Topics Alcohol use: No FAMILY HISTORY: Family History Problem Relation Name Age of Onset Other (Other: familial cardiomyopathy) Father colon polyps, colon cancer Other (Other: familial cardiomyopathy) Sister MEDICATIONS DISCONTINUED/REORDERED: There are no discontinued medications. ACTIVE MEDICATIONS: Outpatient Medications Marked as Taking for the 06/10/24 encounter (Office Visit) with Wyatt Lucas MD Medication Sig Dispense Refill amitriptyline (ELAVIL) 10 mg tablet Take 1 Tablet by mouth at bedtime as needed for Sleep. blood pressure monitor (Blood Pressure Kit) kit 1 Units by Does not apply route daily. cholecalciferol (Vitamin D3) 50 mcg (2,000 unit) tablet Take 1 tablet (2,000 Units total) by mouth 1 (one) time each day. 90 tablet 2 docusate sodium (COLACE) 100 mg capsule Take 1 Capsule by mouth 2 times daily. labetaloL (NORMODYNE) 100 mg tablet TAKE 1 TABLET BY MOUTH TWICE A DAY levothyroxine (SYNTHROID, LEVOTHROID) 100 mcg tablet TAKE 1 TABLET BY MOUTH EVERY DAY BEFORE BREAKFAST 90 tablet 1 meloxicam (MOBIC) 7.5 mg tablet Take 1 Tablet by mouth daily nystatin (MYCOSTATIN) 100,000 unit/gram powder APPLY LOCALLY TWICE A DAY SUMAtriptan (IMITREX) 25 mg tablet MAY REPEAT DOSE ONCE AFTER 2 HOURS, IF NEEDED. topiramate (TOPAMAX) 100 mg tablet Take 1 Tablet by mouth daily. valACYclovir (VALTREX) 500 mg tablet TAKE 1 TABLET BY MOUTH EVERY DAY 90 tablet 1 ALLERGIES: No Known Allergies PHYSICAL EXAM: Vitals: 06/10/24 1217 BP: 130/88 Pulse: 82 Temp: 36.6 ??C (97.9 ??F) SpO2: 98% APPEARANCE: Alert and in no acute distress EARS: External ears normal. HEART: RRR with normal S1 and S2, no murmurs LUNG: clear to auscultation LABS: Lab Results Component Value Date WBC 7.1 05/03/2024 HGB 13.2 05/03/2024 HCT 39.0 05/03/2024 MCV 95.4 05/03/2024 Lab Results Component Value Date NA 142 05/03/2024 K 4.1 05/03/2024 CO2 27 05/03/2024 CL 108 05/03/2024 BUN 14 05/03/2024 ALKPHOS 116 05/03/2024 No results found for: TSH Lab Results Component Value Date HGBA1C 6.4 05/03/2024 CHOL 179 05/03/2024 LDL 116 (A) 02/05/2023 HDL 53 05/03/2024 TRIG 155 (H) 05/03/2024 No components found for: URINELEUK , URINENITR , URINEPRO , URINEPH , URINEBLD , URINESG , URINEKET , URINEBILI , URINEGLUC IMAGING: IMPRESSION: 1. Raynaud's disease without gangrene Ambulatory referral to Rheumatology 2. Myokymia Ambulatory referral to Neurology 3. 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 X-ray ordered. Has symptoms of twitching of eyelids due to anxiety, referred to neurologist documented in this encounter Plan of Treatment Upcoming Encounters Date Type Department Care Team (Late st Contact Info) Description 07/20/2024 9:40 AM EST Office Visit Gastroenterology - [address] [place] [phone] Chana Bartholomew PA [address] [address] 08/15/2024 12:30 AM EDT Telemedicine Bariatric Surgery [facility] [address] [phone] Darlene Ball, RD [address] [phone] 09/06/2024 3:30 PM EDT Office Visit Bariatric Surgery [address] [phone] Shyla Singh PA [address] [address] 09/28/2024 3:45 PM EDT Office Visit Internal Medicine - [place] [address] [place] [phone] Nicolás Medina NP [address] [place] [address] Scheduled Orders Name Type Priority Associated Diagnoses Orde r Schedule XR Knee 3 Views Left Imaging Routine Pain in lateral portion of left knee Expected: 06/10/2024, Expires: 06/10/2025 Scheduled Referrals Name Type Priority Associated Diagnoses Order Schedule Ambulatory referral to Rheumatology Outpatient Referral Routine Raynaud's disease without gangrene Pain in lateral portion of left knee 1 Occurrences starting 06/10/2024 until 06/10/2025 Ambulatory referral to Neurology Outpatient Referral Routine Myokymia 1 Occurrences starting 06/10/2024 until 06/10/2025 documented as of this encounter Visit Diagnoses Diagnosis Raynaud's disease without gangrene- Primary Myokymia Myoclonus Pain in lateral portion of left knee documented in this encounter Care Teams Reconciliation Manager Relationship Specialty Start Date End Date Ericka Contreras MD 175 [facility] [address] [place] [phone] PCP - General Internal Medicine 03/30/24 documented as of this encounter
--- OUTSIDE RECORDS SUMMARY | 2024-06-28 16:28 | XMS_ITS | Clinical Summary ---
Author Organization 175 [facility] Address 175 [place] [address] Phone Care Team Providers Care Ceo And Founder Name Role Phone Ericka Contreras MD Primary Care Provider Allergies No known active allergies Medications Medication Sig Dispensed Refills Start Date End Date Status blood pressure monitor (Blood Pressure Kit) kit 1 Units by Does not apply route daily. 09/05/2021 Active labetaloL (NORMODYNE) 100 mg tablet TAKE 1 TABLET BY MOUTH TWICE A DAY 11/25/2023 Active nystatin (MYCOSTATIN) 100,000 unit/gram powder APPLY LOCALLY TWICE A DAY 11/25/2023 Active SUMAtriptan (IMITREX) 25 mg tablet MAY REPEAT DOSE ONCE AFTER 2 HOURS, IF NEEDED. 11/25/2023 Active topiramate (TOPAMAX) 100 mg tablet Take 1 Tablet by mouth daily. 11/07/2022 Active meloxicam (MOBIC) 7.5 mg tablet Take 1 Tablet by mouth daily Active docusate sodium (COLACE) 100 mg capsule Take 1 Capsule by mouth 2 times daily. Active amitriptyline (ELAVIL) 10 mg tablet Take 1 Tablet by mouth at bedtime as needed for Sleep. Active cholecalciferol (Vitamin D3) 50 mcg (2,000 unit) tablet Take 1 tablet (2,000 Units total) by mouth 1 (one) time each day. 90 tablet 2 05/03/2024 Active levothyroxine (SYNTHROID, LEVOTHROID) 100 mcg tabletIndications:H ypothyroidism, unspecified TAKE 1 TABLET BY MOUTH EVERY DAY BEFORE BREAKFAST 90 tablet 1 05/17/2024 Active valACYclovir (VALTREX) 500 mg tabletIndications:H erpesviral infection, unspecified TAKE 1 TABLET BY MOUTH EVERY DAY 90 tablet 1 05/17/2024 Active amLODIPine (NORVASC) 2.5 mg tablet Take 1 tablet (2.5 mg total) by mouth 1 (one) time each day. 30 each 06/10/2024 12/07/2024 Active Active Problems Problem Noted Date Diagnosed Date Class 2 severe obesity with serious comorbidity and body mass index (BMI) of 35.0 to 35.9 in adult 04/01/2024 Migraine without aura and wi thout status migrainosus, not intractable 02/22/2024 HTN (hypertension), benign 09/23/2023 Overview (02/22/2024): Last Assessment & Plan: Continue low-dose labetalol. Dyspnea on exertion 06/14/2021 Overview (02/22/2024): - Exercise stress echocardiogram on 08/08/2021-exercised for about 6-1/2 minutes to 88% of max predicted heart rate without evidence of ischemia or infarction on echocardiographic imaging, normal resting LV systolic function and regional wall motion with an ejection fraction of 60 to 65% Last Assessment & Plan: Symptoms seem reasonably well-controlled at this point and she has had assuring testing, no further workup from a cardiac standpoint Hyperlipemia, mixed 06/14/2021 Overview (02/22/2024): Last Assessment & Plan: Continue dietary modification and regular aerobic exercise Palpitations 06/14/2021 Overview (02/22/2024): - Status post Holter monitor in June 2021 showing normal sinus rhythm with periods of sinus tachycardia and an average heart rate of 97 bpm, 2 APCs, rare isolated PVCs, no pauses, no symptoms in the diary recorded Last Assessment & Plan: May be stress related or possibly just an awareness of premature contractions, symptoms are few and far between, continue to monitor Chest pain 05/22/2021 Overview (02/22/2024): Last Assessment & Plan: The patient is not describing chest pain brought on by increased activity relieved by rest last year she did undergo a stress echocardiogram that indicated no evidence of ischemia or infarction. Being sympathetic to the stress levels in her life and taking care of her son with autism suggested that even 5 minutes of walking cumulatively can help be a cardiovascular benefit for her. Would suggest lifestyle modifications to reduce future risk. Onychomycosis 05/22/2021 Lateral epicondylitis of left elbow 04/19/2018 Left shoulder pain 04/19/2018 Breast lump on right side at 1 o'clock position 12/10/2017 Constipation 09/16/2017 Herpes simplex type 1 infection 12/11/2016 Hypothyroidism (acquired) 06/28/2014 Pityriasis rosea 07/20/2012 Encounters Date Type Department Care Team Description 06/10/2024 12:30 PM EST Office Visit Internal Medicine [address] [phone] Wyatt Lucas MD Raynaud's disease without gangrene (Primary Dx); Myokymia; Pain in lateral portion of left knee 05/19/2024 Telephone Internal Medicine [address] [phone] Ericka Contreras MD [place]: Referral 05/17/2024 10:00 AM EST Telemedicine Bariatric Surgery [address] [phone] Class 2 severe obesity with serious comorbidity and body mass index (BMI) of 35.0 to 35.9 in adult, unspecified obesity type (CMS/HCC) (Primary Dx) 04/01/2024 8:00 AM EST Telemedicine Bariatric Surgery [address] [phone] Class 1 obesity with serious comorbidity and body mass index (BMI) of 34.0 to 34.9 in adult, unspecified obesity type (Primary Dx) 04/01/2024 Telephone Bariatric Surgery [address] [phone] Shyla Singh PA prior auth (Prior auth) 03/30/2024 3:30 PM EST Office Visit Internal Medicine [address] [phone] Ericka Contreras MD HTN (hypertension), benign (Primary Dx); Encounter for vitamin deficiency screening; Migraine without aura and without status migrainosus, not intractable; Chronic idiopathic constipation from Last 3 Months Immunizations Name Administration Dates Next Due Influenza Quadravalent, MDCK , 0.5ml, preservative free (Flucelvax) 6mo and older 03/18/2022,03/14/2019 Surgical History Surgery Date Site/Laterality Comments OTHER SURGICAL HISTORY PROCEDURE: HISTORY OTHER; COMMENT: cervical cryosurgery TONSILLECTOMY PROCEDURE: HISTORICAL TONSILLECTOMY SECTION PROCEDURE: RI DELIVERY ONLY Medical History Medical History Date Comments Hypothyroidism 06/28/2014 DX:Hypothyroidis m Breast lump on right side at 1 o'clock position 12/10/2017 DX:Breast lump on right side at 1 o'clock position Constipation 09/16/2017 DX:Constipation Herpes simplex type 1 infection 12/11/2016 DX:Herpes simplex type 1 infection Pityriasis rosea 07/20/2012 DX:Pityriasis r osea History of cervical cancer 04/13/2018 DX:Hi story of cervical cancer; COMMENT: S/p cervical cryosurgery Migraines DX:Migraines Family History Medical History Relation Name Comments Other: familial cardiomyopathy Father colon polyps, colon cancer Other: familial cardiomyopathy Sister Relation Name Status Comments Father Sister Social History Tobacco Use Types Packs/Day Years [...] file Not on file Not on file Obstetrics History Last Filed Vital Signs Vital Sign Reading Time Taken Comments Blood Pressure 130/88 06/10/2024 12:17 PM EST Pulse 82 06/10/2024 12:17 PM EST Temperature 36.6 ??C (97.9 ??F) 06/10/2024 12:[address] Respiratory Rate - - Oxygen Saturation 98% 06/10/2024 12:17 PM EST Inhaled Oxygen Concentration - - Weight 98.1 kg (216 lb 3.2 oz) 06/10/2024 12:17 PM EST Height 167.6 cm (5' 6 ) 03/14/2024 1:33 PM EDT Body Mass Index 34.9 03/14/2024 1:33 PM EDT Plan of Treatment Upcoming Encounters Date Type Department Care Team (Late st Contact Info) Description 07/20/2024 9:40 AM EST Office Visit Gastroenterology - 299 [facility] [address] [phone] Chana Bartholomew PA [address] [address] 08/15/2024 12:30 AM EDT Telemedicine Bariatric Surgery - [place] [address] [phone] D[address] Ball [address] [phone] 09/06/2024 3:30 PM EDT Office Visit Bariatric Surgery - [place] [address] [phone] Shyla Singh PA [address] [address] 09/28/2024 3:45 PM EDT Office Visit Internal Medicine [facility] [address] [phone] Nicolás Medina, TOD [address] [address] Health Maintenance Due Date Last Done Comments Breast Cancer Screening 1970 Hepatitis B Vaccines (1 of 3 - 19+ 3-dose series) 09/30/1990 Cervical Cancer Screening: Pap Smear 09/30/1992 Zoster Vaccines (1 of 2) 09/30/2021 HIV Screening 05/03/2022 Social Influencers of Health Screening 05/03/2022 COVID-19 Vaccine ( season) 2024 10/14/2020, 09/23/2020 Influenza Vaccine (#1) 2024 2, 02/13/2021, 01/25/2020, Additional history exists Depression Screening 01/28/2025 01/29/2024 Hypertension/CHF/CAD Annual BMP Blood Test 05/03/2025 05/03/2024, 02/05/2023 DTaP,Tdap,and Td Vaccines (2 - Td or Tdap) 08/18/2026 08/18/2016 Cholesterol Screening (Lipid Panel) 05/03/2029 05/03/2024, 02/05/2023 Colorectal Cancer Screening: Colonoscopy 05/19/2034 05/19/2024, 07/14/2023, 07/14/2023, Additional history exists Hepatitis C Screening Completed 03/18/2022 HIB Vaccines Aged Out No longer eligi ble based on patient's age to complete this topic HPV Vaccines Aged Out No longer eligi ble based on patient's age to complete this topic Hepatitis A Vaccines Aged Out No long er eligible based on patient's age to complete this topic IPV Vaccines Aged Out No longer eligi ble based on patient's age to complete this topic MMR Vaccines Aged Out No longer eligi ble based on patient's age to complete this topic Meningococcal ACWY Vaccine Aged Out N o longer eligible based on patient's age to complete this topic Pneumococcal Vaccine: Pediatrics (0 to 5 Years) and At-Risk Patients (6 to 64 Years) Aged Out No longer eligible based on patient's age to complete this topic RSV Immunization Patients Under 20 months Aged Out No longer eligible based on patient's age to complete this topic Varicella Vaccines Aged Out No longer eligible based on patient's age to complete this topic Procedures Procedure Name Priority Date/Time Associated Diagnosis Comments EXTERNAL COLONOSCOPY REPORT 05/19/2024 VITAMIN D 25 HYDROXY Routine 05/03/2024 12:10 PM EST Encounter for vitamin deficiency screening COMPLETE BLOOD COUNT Routine 05/03/2024 12:10 PM EST Encounter for vitamin deficiency screening HTN (hypertension), benign Migraine without aura and without status migrainosus, not intractable LIPID PANEL WITH REFLEX TO DIRECT LDL Routine 05/03/2024 12:10 PM EST Encounter for vitamin deficiency screening HTN (hypertension), benign Migraine without aura and without status migrainosus, not intractable COMPREHENSIVE METABOLIC PANEL Routine 05/03/2024 12:10 PM EST Encounter for vitamin deficiency screening HTN (hypertension), benign Migraine without aura and without status migrainosus, not intractable HEMOGLOBIN A1C Routine 05/03/2024 12:10 PM EST Encounter for vitamin deficiency screening HTN (hypertension), benign Migraine without aura and without status migrainosus, not intractable DEPRESSION SCREENING Routine 01/29/2024 HEPATITIS C SCREENING Routine 03/18/2022 from Last 3 Months or Most Recently Relevant to Health Maintenance Results * External Colonoscopy Report (05/19/2024) Anatomical Region Laterality Modality Endoscopy Provider [facility]~PROCEDURE ORD ERABLES * (ABNORMAL) Lipid panel with reflex to direct LDL (05/03/2024 12:10 PM EST) Cholesterol 179 0 - 200 mg/dL LAB CHEMISTRY METHOD 05/03/2024 4:39 PM [facility] Triglycerides 155(H) 0 - 150 mg/dL LAB CHEMISTRY METHOD 05/03/2024 4:39 PM [facility] HDL 53 >=40 mg/dL LAB CHEMISTRY METHOD 05/03/2024 4:39 PM [facility] LDL Calculated 95 0 - 100 mg/dL LAB CHEMISTRY METHOD 05/03/2024 4:39 PM [facility] VLDL Cholesterol Robinson 31 mg/dL LAB CHEMISTRY METHOD 05/03/2024 4:39 PM [facility] Non HDL Chol. (LDL+VLDL) 126 <145 mg/dL LAB CHEMISTRY METHOD 05/03/2024 4:39 PM [facility] Chol/HDL Ratio 3.4 0.0 - 4.4 LAB CHEMISTRY METHOD 05/03/2024 4:39 PM EST [facility] Blood Venous blood specimen / Unknown Venipuncture / Unknown 05/03/2024 12:10 PM EST 05/03/2024 12:10 PM EST Ericka Contreras MD LAB BLOOD ORDERABLES Performing Organization Address [facility]/ZIP Co de Phone Number [facility] [address] [place] [address], [place] [phone] * (ABNORMAL) Vitamin D 25 hydroxy (05/03/2024 12:10 PM EST) Pathologist [facility] Vit D, 25-Hydroxy 28.6(L) 30.0 - 80.0 ng/mL LAB CHEMISTRY METHOD 05/03/2024 4:30 PM EST [facility] Blood Venous blood specimen / Unknown Venipuncture / Unknown 05/03/2024 12:10 PM EST 05/03/2024 12:10 PM EST Ericka Contreras MD LAB BLOOD ORDERABLES Performing Organization Address City/[facility]/ZIP Co de Phone Number [facility] [address] [place] [address], [place] [phone] * (ABNORMAL) Complete blood count (05/03/2024 12:10 PM EST) Pathologist [facility] WBC 7.1 4.8 - 10.8 K/mcL LAB HEMETOLOGY METHOD 05/03/2024 2:16 PM EST [facility] RBC 4.10 3.80 - 4.80 M/mcL LAB HEMETOLOGY METHOD 05/03/2024 2:16 PM EST [facility] Hemoglobin 13.2 11.5 - 16.0 g/dL LAB HEMETOLOGY METHOD 05/03/2024 2:16 PM EST [facility] Hematocrit 39.0 35.0 - 47.0 % LAB HEMETOLOGY METHOD 05/03/2024 2:16 PM EST [facility] MCV 95.4 79.0 - 98.0 FL LAB HEMETOLOGY METHOD 05/03/2024 2:16 PM [facility] MCH 32.3(H) 27.0 - 32.0 pcg LAB HEMETOLOGY METHOD 05/03/2024 2:16 PM [facility] MCHC 33.8 32.0 - 37.0 g/dL LAB HEMETOLOGY METHOD 05/03/2024 2:16 PM EST [facility] RDW 12.9 11.0 - 15.0 % LAB HEMETOLOGY METHOD 05/03/2024 2:16 PM [facility] Platelets 315 130 - 400 K/mcL LAB HEMETOLOGY METHOD 05/03/2024 2:16 PM [facility] MPV 10.7 7.0 - 11.0 FL LAB HEMETOLOGY METHOD 05/03/2024 2:16 PM [facility] NRBC 0.0 <1.0 % LAB HEMETOLOGY METHOD 05/03/2024 2:16 PM [facility] NRBC Absolute 0.00 <0.10 K/mcL LAB HEMETOLOGY METHOD 05/03/2024 2:16 PM [facility] Blood Venous blood specimen / Unknown Venipuncture / Unknown 05/03/2024 12:10 PM EST 05/03/2024 12:10 PM EST Ericka Contreras MD LAB BLOOD ORDERABLES [facility] [address] [place] [address], * Hemoglobin A1c (05/03/2024 12:10 PM EST) Hemoglobin A1C 6.4 <6.5 % LAB CHEMISTRY METHOD 05/03/2024 6:56 PM [facility] Mean Bld Glu Estim. 137 mg/dL LAB CHEMISTRY METHOD 05/03/2024 6:56 PM [facility] Blood Venous blood specimen / Unknown Venipuncture / Unknown 05/03/2024 12:10 PM EST 05/03/2024 12:10 PM EST Ericka Contreras MD LAB BLOOD ORDERABLES [facility] [address] [place] [address], [place] [phone] * (ABNORMAL) Comprehensive metabolic panel (05/03/2024 12:10 PM EST) Sodium 142 133 - 145 mmol/L LAB CHEMISTRY METHOD 05/03/2024 4:39 PM [facility] Potassium 4.1 3.5 - 5.5 mmol/L LAB CHEMISTRY METHOD 05/03/2024 4:39 PM [facility] Chloride 108 96 - 110 mmol/L LAB CHEMISTRY METHOD 05/03/2024 4:39 PM [facility] CO2 27 21 - 32 mmol/L LAB CHEMISTRY METHOD 05/03/2024 4:39 PM [facility] Anion Gap 7 3 - 11 LAB CHEMISTRY METHOD 05/03/2024 4:39 PM [facility] Glucose 112(H) 70 - 100 mg/dL LAB CHEMISTRY METHOD 05/03/2024 4:39 PM [facility] BUN 14 5 - 25 mg/dL LAB CHEMISTRY METHOD 05/03/2024 4:39 PM [facility] Creatinine 0.67 0.50 - 1.10 mg/dL LAB CHEMISTRY METHOD 05/03/2024 4:39 PM [facility] eGFR 105 >=60 mL/min/1. 73m2 LAB CHEMISTRY METHOD 05/03/2024 4:39 PM [facility] Comment:Calculation based on the??Chronic Kidney Disease Epidemiology Collaboration (CKD-EPI) equation refit??without adjustment for race. BUN/Creatinine Ratio 20.9 LAB CHEMISTRY METHOD 05/03/2024 4:39 PM [facility] Calcium 9.7 8.5 - 10.5 mg/dL LAB CHEMISTRY METHOD 05/03/2024 4:39 PM [facility] AST (SGOT) 19 10 - 42 unit/L LAB CHEMISTRY METHOD 05/03/2024 4:39 PM [facility] ALT (SGPT) 32 10 - 60 unit/L LAB CHEMISTRY METHOD 05/03/2024 4:39 PM [facility] Alkaline Phosphatase 116 42 - 121 unit/L LAB CHEMISTRY METHOD 05/03/2024 4:39 PM [facility] Total Protein 7.1 6.0 - 8.0 g/dL LAB CHEMISTRY METHOD 05/03/2024 4:39 PM [facility] Albumin 4.0 3.2 - 5.0 g/dL LAB CHEMISTRY METHOD 05/03/2024 4:39 PM [facility] Total Bilirubin 0.3 0.0 - 1.4 mg/dL LAB CHEMISTRY METHOD 05/03/2024 4:39 PM [facility] Blood Venous blood specimen / Unknown Venipuncture / Unknown 05/03/2024 12:10 PM EST 05/03/2024 12:10 PM EST Ericka Contreras MD LAB BLOOD ORDERABLES [facility] [address] [place] [address], * Depression Screening (01/29/2024) Depression Screening Abstracted Historical Provider MD TIFFANIE DAY E * Hepatitis C Screening (03/18/2022) Hepatitis C Screening Abstracted Historical Provider MD TIFFANIE Nick from Last 3 Months or Most Recently Relevant to Health Maintenance Care Teams Ceo And Founder Relationship Specialty Start Date End Date Ericka Contreras MD 175 [facility] 200 [place] [address] PCP - General Internal Medicine 03/30/24
--- OUTSIDE RECORDS SUMMARY | 2024-06-28 16:28 | XMS_ITS | Encounter Summary ---
Author Organization [facility] Address [address] [place] [address] Care Team Providers Care Fixed Income Analyst Name Role Phone Ericka Contreras MD Primary Care Provider [phone] Reason for Referral * Consultation (Routine) - Authorized Specialty Diagnoses / Procedures Referred By Jay coker Referred To Contact Gastroenterology Diagnoses Chronic idiopathic constipation Multiple polyps of sigmoid colon Ericka Contreras MD [address] [facility] [address] [place] [address] [place] [phone] [facility] - Gastroenterology [address] [place] [address] [place] [address] Referral ID Status Reason Start Date Expiration Date Visits Requested Visits Authorized [id number] Authorized Specialty Services Required 05/19/2025 1 1 Reason for Visit * Reason Onset Date Comments [place]: Referral 05/19/2024 Encounter Details Date Type Department Care Team (Late st Contact Info) Description 05/19/2024 Telephone Internal Medicine - [place] [address] [facility] [address] [place] [address] Ericka Contreras MD 175 [facility] [place] [address] [place] [address] [place]: Referral Social History Tobacco Use Types Packs/Day Years [...] on file documented as of this encounter Progress Notes * Ericka Contreras MD - 05/19/2024 4:16 PM EST Ref placed * Madonna Brice MA - 05/19/2024 2:[address] Contreras please advise referral request below * Elana Acuna - 05/19/2024 2:20 PM EST Patient called and requested a internal referral to gastro dept on [address] [place] [address] for a second opinion because her gastro in [place] is not being helpful and she needs to be seen due polyps in colon. Please advise Cb# [phone] documented in this encounter Plan of Treatment Upcoming Encounters Date Type Department Care Team ([facility] Contact Info) Description 07/20/2024 9:40 AM EST Office Visit Gastroenterology - [address] [place] [phone] Chana Bartholomew PA [address] [place] [address] 08/15/2024 12:30 AM EDT Telemedicine Bariatric Surgery - [address] [phone] Darlene Ball RD [address] [phone] 09/06/2024 3:30 PM EDT Office Visit Bariatric Surgery [address] [phone] Shyla Singh PA 271 [facility] 120 [place] [address] 09/28/2024 3:45 PM EDT Office Visit Internal Medicine - [place] 175 [facility] 200 [place] [phone] Nicolás Medina, TOD 175 [facility] 200 [place] [address] Scheduled Referrals Name Type Priority Associated Diagnoses Order Schedule Ambulatory referral to Gastroenterology Outpatient Referral Routine Chronic idiopathic constipation Multiple polyps of sigmoid colon 1 Occurrences starting 05/19/2024 until 05/19/2025 documented as of this encounter Visit Diagnoses Diagnosis Chronic idiopathic constipation- Primary Unspecified constipation Multiple polyps of sigmoid colon documented in this encounter Care Teams Fixed Income Analyst Relationship Specialty Start Date End Date Ericka Contreras MD 175 [facility] 200 [place] [phone] PCP - General Internal Medicine 03/30/24 documented as of this encounter
== END 2024-06-28 17:31 | disposition home or self-care (01) ==
PROVIDERS: PCP Internal Medicine; Visit Provider Nurse Practitioner Family
DX: D36.9 Benign neoplasm, unspecified site (principal); D13.91 Familial adenomatous polyposis; K59.01 Slow transit constipation; K21.9 Gastro-esophageal reflux disease without esophagitis
CPT/HCPCS: 99214

== ENCOUNTER 2024-07-13 08:35 | Outpatient (REF) | payer BC, MEDICAID, SELFPAY ==
--- NOTE | ~2024-07-13 | US_ITS ---
EXAMINATION: US LOWER EXTREMITY VENOUS (REFLUX EXAM), BILATERAL CLINICAL INFORMATION: Varices. COMPARISON: None. TECHNIQUE: Color flow triplex imaging and compression Doppler was performed to evaluate both the deep and the superficial systems bilaterally. To evaluate the superficial system, the examination was performed in the upright position. Color-flow Doppler ultrasound and compression ultrasound were utilized. In addition, maneuvers were utilized to demonstrate reflux. FINDINGS: 1. DEEP VENOUS ULTRASOUND OF THE RIGHT LOWER EXTREMITY: Common Femoral Vein: Compressible, normal respiratory variation and augmented flow. Femoral Vein: Compressible, normal color flow and augmentation. Popliteal Vein: Compressible, normal augmentation. Deep Reflux: There is no evidence of reflux in the deep system in either the common femoral vein, superficial femoral or the popliteal vein. There is no evidence of a Hill's cyst. 2. SUPERFICIAL ULTRASOUND WITH DOPPLER OF RIGHT LOWER EXTREMITY: GREAT SAPHENOUS VEIN: Saphenofemoral Junction: 0.8 cm; Reflux: 0 ms Proximal Thigh: 0.2 cm; Reflux: 0 ms Mid Thigh: Not seen. Distal Thigh: Not seen. At Knee: 0.2 cm; Reflux: 0 ms Proximal Calf: 0.3 cm; Reflux: 0 ms Mid Calf: 0.3 cm; Reflux: 2524 ms Distal Calf: 0.1 cm; Reflux: 0 ms DUPLICATED MEDIAL GREAT SAPHENOUS VEIN: Diameter: None imaged Reflux: NA DUPLICATED LATERAL GREAT SAPHENOUS VEIN: Diameter: 0.5 cm. Reflux: NA SMALL SAPHENOUS VEIN: Saphenopopliteal Junction: 0.3 cm; Reflux: 0 ms Proximal: 0.2 cm; Reflux: 0 ms Distal: 0.1 cm; Reflux: 0 ms VEIN OF GIACOMINI: Size: NA Reflux: NA PERFORATORS: Location: Small saphenous vein, mid segment. Great saphenous vein from the proximal thigh to the mid calf. Size: 0.2-0.3 cm. Reflux: 4522-0270 ms in the thigh and at the knee levels respectively. VARICOSITIES: Location: None imaged. Size: NA Reflux: NA 3. DEEP VENOUS ULTRASOUND OF THE LEFT LOWER EXTREMITY: Common Femoral Vein: Compressible, normal respiratory variation and augmented flow. Femoral Vein: Compressible, normal color flow and augmentation. Popliteal Vein: Compressible, normal augmentation. Deep Reflux: There is no evidence of reflux in the deep system in either the common femoral vein, superficial femoral or the popliteal vein. There is no evidence of a Hill's cyst. 4. SUPERFICIAL ULTRASOUND WITH DOPPLER OF LEFT LOWER EXTREMITY: GREAT SAPHENOUS VEIN: Saphenofemoral Junction: 0.5 cm; Reflux: 0 ms Proximal Thigh: 0.7 cm; Reflux: 0 ms Mid Thigh: 0.4 cm; Reflux: 2168 ms Distal Thigh: 0.5 cm; Reflux: 2432 ms At Knee: 0.5 cm; Reflux: 2892 ms Proximal Calf: 0.3 cm; Reflux: 2212 ms Mid Calf: 0.2 cm; Reflux: 0 ms Distal Calf: 0.2 cm; Reflux: 0 ms DUPLICATED MEDIAL GREAT SAPHENOUS VEIN: Diameter: None imaged Reflux: NA DUPLICATED LATERAL GREAT SAPHENOUS VEIN: Diameter: 0.4 cm. Reflux: NA SMALL SAPHENOUS VEIN: Saphenopopliteal Junction: 0.2 cm; Reflux: 0 ms Proximal: 0.2 cm; Reflux: 0 ms Distal: 0.2 cm; Reflux: 0 ms VEIN OF GIACOMINI: Size: NA Reflux: NA PERFORATORS: Location: Great saphenous vein throughout the calf. Size: 0.2-0.3 cm. Reflux: NA VARICOSITIES: Location: Great saphenous vein, mid calf. Size: 0.3 cm. Reflux: NA US/US venous insuf bilat IMPRESSION: Right: Venous insufficiency, great saphenous vein at the mid calf. Accessory lateral saphenous vein insufficiency, mid thigh. Perforators great saphenous vein distal thigh and at the knee with reflux. Left: Venous insufficiency great saphenous vein through the thigh and below the knee. Perforators without reflux in the great saphenous vein. Varices without reflux in the great saphenous vein mid calf region. Electronically signed by: Enrrique Woodall MD 07/13/2024 01:08 PM [facility]
--- OUTSIDE RECORDS SUMMARY | 2024-07-13 08:40 | XMS_ITS | Encounter Summary ---
Author Organization [facility] Address [address] [place] [address] Care Team Providers Care Front Desk Team Member Name Role Phone Ericka Contreras MD Primary Care Provider [phone] Reason for Referral * Consultation (Routine) - Authorized Specialty Diagnoses / Procedures Referred By Jay coker Referred To Contact Gastroenterology Diagnoses Chronic idiopathic constipation Multiple polyps of sigmoid colon Ericka Contreras MD [address] [phone] Phone: tel: fax: [facility] - Gastroenterology [address] [place] [address] [place] [address] Phone: tel: fax: Referral ID Status Reason Start Date Expiration Date Visits Requested Visits Authorized [id number] Authorized Specialty Services Required 05/19/2025 1 1 Reason for Visit * Reason Onset Date Comments [place]: Referral 05/19/2024 Encounter Details Date Type Department Care Team (Late st Contact Info) Description 05/19/2024 Telephone Internal Medicine - [place] 175 [facility] 200 [place] [address] Ericka Contreras MD 175 [facility] 200 [place] [address] [place]: Referral Social History Tobacco Use Types Packs/Day Years Used Date Smoking Tobacco: Never Smokeless Tobacco: Never Alcohol Use Standard Drinks/Week Comments No 0 (1 standard drink = 0.6 oz pur e alcohol) Comments Unknown Sex and Gender Information Value Date Recorded Sex Assigned at Female 05/19/2024 3:48 PM EST Legal Sex Female 12:36 PM EST Gender Identity Female 05/19/2024 3:48 PM EST Sexual Orientation Straight 05/19/2024 3: 48 PM EST documented as of this encounter Progress Notes * Ericka Contreras MD - 05/19/2024 4:16 PM EST Ref placed * Madonna Brice MA - 05/19/2024 2:[address] Contreras please advise referral request below * Elana Acuna - 05/19/2024 2:20 PM EST Patient called and requested a internal referral to gastro dept on [address] [place] [address] for a second opinion because her gastro in [place] is not being helpful and she needs to be seen due polyps in colon. Please advise Cb# [phone] documented in this encounter Plan of Treatment Upcoming Encounters Date Type Department Care Team ([facility] Contact Info) Description 08/15/2024 12:30 AM EDT Telemedicine Bariatric Surgery [address] [phone] Darlene Ball, RD [address] [phone] 08/17/2024 3:20 PM EDT Consult Gastroenterology - [address] [place] [phone] Noel Nash MD [address] [address] 09/06/2024 3:30 PM EDT Office Visit Bariatric Surgery [address] [place] [phone] Shyla Singh PA 271 [facility] 120 [place] [address] 09/28/2024 3:45 PM EDT Office Visit Internal Medicine - [place] 175 [facility] 200 [place] [phone] Nicolás Medina NP 175 [facility] 200 [place] [address] Scheduled Referrals Name Type Priority Associated Diagnoses Order Schedule Ambulatory referral to Gastroenterology Outpatient Referral Routine Chronic idiopathic constipation Multiple polyps of sigmoid colon 1 Occurrences starting 05/19/2024 until 05/19/2025 documented as of this encounter Visit Diagnoses Diagnosis Chronic idiopathic constipation- Primary Unspecified constipation Multiple polyps of sigmoid colon documented in this encounter Care Teams Front Desk Team Member Relationship Specialty Start Date End Date Ericka Contreras MD [address] [phone] PCP - General Internal Medicine 03/30/24 documented as of this encounter
--- OUTSIDE RECORDS SUMMARY | 2024-07-13 08:40 | XMS_ITS | Clinical Summary ---
Author Organization 175 [facility] Address 175 [place] [address] Phone Care Team Providers Care Injection Specialist Name Role Phone Ericka Contreras MD Primary Care Provider [phone] Allergies No known active allergies Medications blood pressure monitor (Blood Pressure Kit) kit 1 Units by Does not apply route daily. 09/06/19 22 Active nystatin (MYCOSTATIN) 100,000 unit/gram powder APPLY LOCALLY TWICE A DAY 11/25/19 24 Active SUMAtriptan (IMITREX) 25 mg tablet MAY REPEAT DOSE ONCE AFTER 2 HOURS, IF NEEDED. 11/25/19 24 Active topiramate (TOPAMAX) 100 mg tablet Take 1 Tablet by mouth daily. 11/08/19 23 Active docusate sodium (COLACE) 100 mg capsule Take 1 Capsule by mouth 2 times daily. Active amitriptyline (ELAVIL) 10 mg tablet Take 1 Tablet by mouth at bedtime as needed for Sleep. Active cholecalciferol (Vitamin D3) 50 mcg (2,000 unit) tablet Take 1 tablet (2,000 Units total) by mouth 1 (one) time each day. 90 tablet 2 05/03/20 24 Active valACYclovir (VALTREX) 500 mg tabletIndicatio ns:Herpesviral infection, unspecified Take 1 tablet (500 mg total) by mouth 1 (one) time each day. 90 tablet 1 07/08/19 25 Active levothyroxine (SYNTHROID, LEVOTHROID) 100 mcg tabletIndicatio ns:Hypothyroidi sm, unspecified Take 1 tablet (100 mcg total) by mouth 1 (one) time each day. before breakfast 90 tablet 1 07/08/19 25 Active meloxicam (MOBIC) 7.5 mg tablet Take 1 tablet (7.5 mg total) by mouth 1 (one) time each day. 30 tablet 5 07/08/19 25 Active labetaloL (NORMODYNE) 100 mg tablet Take 1 tablet (100 mg total) by mouth 2 (two) times a day. 180 tablet 1 07/08/19 25 Active amLODIPine (NORVASC) 2.5 mg tablet Take 1 tablet (2.5 mg total) by mouth 1 (one) time each day. 90 tablet 3 07/08/19 25 Active labetaloL (NORMODYNE) 100 mg tablet TAKE 1 TABLET BY MOUTH TWICE A DAY 11/25/19 24 025 Discontinued meloxicam (MOBIC) 7.5 mg tablet Take 1 Tablet by mouth daily 025 Discontinued levothyroxine (SYNTHROID, LEVOTHROID) 100 mcg tabletIndicatio ns:Hypothyroidi sm, unspecified TAKE 1 TABLET BY MOUTH EVERY DAY BEFORE BREAKFAST 90 tablet 1 05/17/20 24 025 Discontinued(Re order) valACYclovir (VALTREX) 500 mg tabletIndicatio ns:Herpesviral infection, unspecified TAKE 1 TABLET BY MOUTH EVERY DAY 90 tablet 1 05/17/20 24 025 Discontinued(Re order) amLODIPine (NORVASC) 2.5 mg tablet Take 1 tablet (2.5 mg total) by mouth 1 (one) time each day. 30 each 06/10/19 25 025 Discontinued amLODIPine (NORVASC) 2.5 mg tablet TAKE 1 TABLET BY MOUTH 1 TIME EACH DAY. 30 tablet 5 07/04/19 25 025 Discontinued(Re order) meloxicam (MOBIC) 7.5 mg tablet TAKE 1 TABLET BY MOUTH EVERY DAY 30 tablet 5 07/01/19 25 025 Discontinued(Re order) labetaloL (NORMODYNE) 100 mg tablet TAKE 1 TABLET BY MOUTH TWICE A DAY 180 tablet 1 07/01/19 25 025 Discontinued(Re order) Active Problems Problem Noted Date Diagnosed Date [...] PM EST Office Visit Internal Medicine - [place] 175 [facility] [address] [place] [address] Wyatt Lucas MD Raynaud's disease without gangrene (Primary Dx); Myokymia; Pain in lateral portion of left knee 05/19/2024 Telephone Internal Medicine - [place] [address] [facility] [address] [place] [address] Ericka Contreras MD [place]: Referral 05/17/2024 10:00 AM EST Telemedicine Bariatric Surgery - [place] 175 [facility] [address] [place] [address] Class 2 severe obesity with serious comorbidity and body mass index (BMI) of 35.0 to 35.9 in adult, unspecified obesity type (CMS/HCC) (Primary Dx) from Last 3 Months Immunizations Name Administration Dates Next Due Influenza Quadravalent, MDCK , 0.5ml, preservative free (Flucelvax) 6mo and older 03/18/2022,03/14/2019 Surgical History Surgery Date Site/Laterality Comments OTHER SURGICAL HISTORY PROCEDURE: HISTORY OTHER; COMMENT: cervical cryosurgery TONSILLECTOMY PROCEDURE: HISTORICAL TONSILLECTOMY SECTION PROCEDURE: [place] DELIVERY ONLY Medical History Medical History Date [...] Orientation Straight 05/19/2024 3: 48 PM EST Obstetrics History Last Filed Vital Signs Vital [...] Care Team (Late st Contact Info) Description 08/15/2024 12:30 AM EDT Telemedicine Bariatric Surgery [facility] [address] [address] Darlene Ball, RD [address] [phone] 08/17/2024 3:20 PM EDT Consult Gastroenterology - 299 [facility] [address] [phone] Noel Nash MD [address] [address] 09/06/2024 3:30 PM EDT Office Visit Bariatric Surgery [facility] [address] [phone] Shyla Singh PA [address] [address] 09/28/2024 3:45 PM EDT Office Visit Internal Medicine - [place] 175 [facility] [address] [place] [phone] Nicolás Medina NP 175 [facility] 200 [place] [address] Health Maintenance Due Date Last Done Comments Breast Cancer Screening 1970 Hepatitis B Vaccines (1 of 3 - 19+ 3-dose series) 09/30/1990 Cervical Cancer Screening: Pap Smear 09/30/1992 Pneumococcal Vaccine: 50+ Years (1 of 1 - PCV) 09/30/2021 Zoster Vaccines (1 of 2) 09/30/2021 HIV Screening 05/03/2022 Social Influencers of Health Screening 05/03/2022 COVID-19 Vaccine (3 - 2023- season) 2024 10/14/2020, 09/23/2020 Influenza Vaccine (#1) 2024 , 02/13/2021, 01/25/2020, Additional history exists Depression Screening [...] patient's age to complete this topic Meningococcal B Vacine Aged Out No lo nger eligible based on patient's age to complete [...] Report (05/19/2024) Anatomical Region Laterality Modality Endoscopy us Provider [facility]~PROCEDURE ORDERABLES Final Result * (ABNORMAL) Lipid panel with reflex to direct LDL (05/03/2024 12:10 PM EST) Cholesterol 179 0 - 200 mg/dL LAB CHEMISTRY METHOD 05/03/2024 4:39 PM [facility] Triglycerides 155(H) 0 - 150 mg/dL LAB CHEMISTRY METHOD 05/03/2024 4:39 PM [facility] HDL 53 >=40 mg/dL LAB CHEMISTRY METHOD 05/03/2024 4:39 PM [facility] LDL Calculated 95 0 - 100 mg/dL LAB CHEMISTRY METHOD 05/03/2024 4:39 PM [facility] VLDL Cholesterol Robinson 31 mg/dL LAB CHEMISTRY METHOD 05/03/2024 4:39 PM [facility] Non HDL Chol. (LDL+VLDL) 126 <145 mg/dL LAB CHEMISTRY METHOD 05/03/2024 4:39 PM [facility] Chol/HDL Ratio 3.4 0.0 - 4.4 LAB CHEMISTRY METHOD 05/03/2024 4:39 PM [facility] Blood Venous blood specimen / Unknown Venipuncture / Unknown 05/03/2024 12:10 PM EST 05/03/2024 12:10 PM EST us Ericka Contreras MD LAB BLOOD ORDERABLES Final Res ult [facility] [address] [place] [address], * (ABNORMAL) Vitamin D 25 hydroxy (05/03/2024 12:10 PM EST) Vit D, 25-Hydroxy 28.6(L) 30.0 - 80.0 ng/mL LAB CHEMISTRY METHOD 05/03/2024 4:30 PM [facility] Blood Venous blood specimen / Unknown Venipuncture / Unknown 05/03/2024 12:10 PM EST 05/03/2024 12:10 PM EST us Ericka Contreras MD LAB BLOOD ORDERABLES Final Res ult [facility] [address] [place] [address], * (ABNORMAL) Complete blood count (05/03/2024 12:10 PM EST) [facility] Signature WBC 7.1 4.8 - 10.8 K/mcL LAB HEMETOLOGY METHOD 05/03/2024 2:16 PM EST [facility] RBC 4.10 3.80 - 4.80 M/mcL LAB HEMETOLOGY METHOD 05/03/2024 2:16 PM EST [facility] Hemoglobin 13.2 11.5 - 16.0 g/dL LAB HEMETOLOGY METHOD 05/03/2024 2:16 PM [facility] Hematocrit 39.0 35.0 - 47.0 % LAB HEMETOLOGY METHOD 05/03/2024 2:16 PM EST [facility] MCV 95.4 79.0 - 98.0 FL LAB HEMETOLOGY METHOD 05/03/2024 2:16 PM [facility] MCH 32.3(H) 27.0 - 32.0 pcg LAB HEMETOLOGY METHOD 05/03/2024 2:16 PM [facility] MCHC 33.8 32.0 - 37.0 g/dL LAB HEMETOLOGY METHOD 05/03/2024 2:16 PM EST [facility] RDW 12.9 11.0 - 15.0 % LAB HEMETOLOGY METHOD 05/03/2024 2:16 PM [facility] Platelets 315 130 - 400 K/mcL LAB HEMETOLOGY METHOD 05/03/2024 2:16 PM [facility] MPV 10.7 7.0 - 11.0 FL LAB HEMETOLOGY METHOD 05/03/2024 2:16 PM [facility] NRBC 0.0 <1.0 % LAB HEMETOLOGY METHOD 05/03/2024 2:16 PM EST [facility] NRBC Absolute 0.00 <0.10 K/mcL LAB HEMETOLOGY METHOD 05/03/2024 2:16 PM EST [facility] Blood Venous blood specimen / Unknown Venipuncture / Unknown 05/03/2024 12:10 PM EST 05/03/2024 12:10 PM EST Ericka Contreras MD LAB BLOOD ORDERABLES Final Res ult Performing Organization Address City/[facility]/ZIP Co de Phone Number [facility] [address] [place] [address], [place] [phone] * Hemoglobin A1c (05/03/2024 12:10 PM EST) Hemoglobin A1C 6.4 <6.5 % LAB CHEMISTRY METHOD 05/03/2024 6:56 PM EST [facility] Mean Bld Glu Estim. 137 mg/dL LAB CHEMISTRY METHOD 05/03/2024 6:56 PM EST [facility] Blood Venous blood specimen / Unknown Venipuncture / Unknown 05/03/2024 12:10 PM EST 05/03/2024 12:10 PM EST us Ericka Contreras MD LAB BLOOD ORDERABLES Final Res ult [facility] [address] [place] [address], [place] [phone] * (ABNORMAL) Comprehensive metabolic panel (05/03/2024 12:10 PM EST) Sodium 142 133 - 145 mmol/L LAB CHEMISTRY METHOD 05/03/2024 4:39 PM EST [facility] Potassium 4.1 3.5 - 5.5 mmol/L LAB CHEMISTRY METHOD 05/03/2024 4:39 PM EST [facility] Chloride 108 96 - 110 mmol/L LAB CHEMISTRY METHOD 05/03/2024 4:39 PM [facility] CO2 27 21 - 32 mmol/L LAB CHEMISTRY METHOD 05/03/2024 4:39 PM [facility] Anion Gap 7 3 - 11 LAB CHEMISTRY METHOD 05/03/2024 4:39 PM [facility] Glucose 112(H) 70 - 100 mg/dL LAB CHEMISTRY METHOD 05/03/2024 4:39 PM [facility] BUN 14 5 - 25 mg/dL LAB CHEMISTRY METHOD 05/03/2024 4:39 PM [facility] Creatinine 0.67 0.50 - 1.10 mg/dL LAB CHEMISTRY METHOD 05/03/2024 4:39 PM [facility] eGFR 105 >=60 mL/min/1. 73m2 LAB CHEMISTRY METHOD 05/03/2024 4:39 PM [facility] Comment:Calculation based on the??Chronic Kidney Disease Epidemiology Collaboration (CKD-EPI) equation refit??without adjustment for race. BUN/Creatinine Ratio 20.9 LAB CHEMISTRY METHOD 05/03/2024 4:39 PM [facility] Calcium 9.7 8.5 - 10.5 mg/dL LAB CHEMISTRY METHOD 05/03/2024 4:39 PM [facility] AST (SGOT) 19 10 - 42 unit/L LAB CHEMISTRY METHOD 05/03/2024 4:39 PM [facility] ALT (SGPT) 32 10 - 60 unit/L LAB CHEMISTRY METHOD 05/03/2024 4:39 PM [facility] Alkaline Phosphatase 116 42 - 121 unit/L LAB CHEMISTRY METHOD 05/03/2024 4:39 PM [facility] Total Protein 7.1 6.0 - 8.0 g/dL LAB CHEMISTRY METHOD 05/03/2024 4:39 PM [facility] Albumin 4.0 3.2 - 5.0 g/dL LAB CHEMISTRY METHOD 05/03/2024 4:39 PM EST [facility] Total Bilirubin 0.3 0.0 - 1.4 mg/dL LAB CHEMISTRY METHOD 05/03/2024 4:39 PM EST [facility] Blood Venous blood specimen / Unknown Venipuncture / Unknown 05/03/2024 12:10 PM EST 05/03/2024 12:10 PM EST Ericka Contreras MD LAB BLOOD ORDERABLES Final Res ult [facility] [address] [place] [address], * Depression Screening (01/29/2024) Depression Screening Abstracted Historical Provider HEALTH MAINTENANCE Final Result * Hepatitis C Screening (03/18/2022) Hepatitis C Screening Abstracted Historical Provider HEALTH MAINTENANCE Final Result from Last 3 Months or Most Recently Relevant to Health Maintenance [facility] [place] Care Teams Injection Specialist Relationship Specialty Start Date End Date Ericka Contreras MD [address] [address] PCP - General Internal Medicine 03/30/24
== END 2024-07-13 08:36 | disposition home or self-care (01) ==
LOC: HO.US 08:35
PROVIDERS: PCP Internal Medicine; Visit Provider Physician Assistant Surgical
DX: I83.11 Varicose veins of right lower extremity with inflammation (principal); I83.12 Varicose veins of left lower extremity with inflammation
CPT/HCPCS: 93970

== ENCOUNTER → 2024-07-13 08:37 | Outpatient (BNV) | payer BC, MEDICAID, SELFPAY | PROVIDERS: PCP Internal Medicine; Visit Provider Radiology Diagnostic Radiology | DX: I83.11 Varicose veins of right lower extremity with inflammation (principal); I83.12 Varicose veins of left lower extremity with inflammation | CPT/HCPCS: 93970 ==

== ENCOUNTER 2024-07-26 15:06 | Outpatient (AMB) | payer BC, MEDICAID, SELFPAY ==
[2024-07-26 15:10] VITALS: BMI 36.3
--- NOTE | 2024-07-26 15:10 | A.OFFVIS_ITS ---
Vital Signs 07/26/24 15:10 Height 5 ft 6 in Weight 225 lb BMI 36.3 Intake Visit Reasons: Follow up 07/13 US Intake Note: follow up US 07/13/24, pt has toe wounds and discoloration. Started on Right Great toe, thats healed and now has new wound on Left 2nd toe. Marketing Technology Specialist Required: No Accompanied by: Self / Same As Patient Allergies No Known Allergies Allergy (Verified 07/26/24 15:16) HPI HPI Follow up 07/13 US: Details: Very complex 53-year-old female presents for evaluation regarding venous disease. Upon presentation her biggest complaint appears to be her toes on bilateral lower extremities. She has on the dorsum nonhealing ulcers and excoriated areas on the right 2nd toe and on the left 1st and 2nd toe. That appears to be her biggest complaint at the current time. She has multiple medical issues that she is trying to get addressed. It appears that she has FAP and our local GI doctors have referred her to [place] for higher level of care. [facility] Medical History Sleep apnea Attenuated familial adenomatous polyposis Tubular adenoma Hx of migraines Herpes simplex Hypothyroidism (acquired) Constipation Hyperlipidemia Kuldip's thyroiditis Surgical History Hx of dilation and curettage H/O LEEP History of tonsillectomy History of endoscopy Hx of colonoscopy Hx of section Social History Are you a primary manager care to a significant other at home: No Do you presently have visiting nurse or other home services: No Alcohol intake: current Alcohol intake frequency: holidays/special occasions only Alcohol type: wine Patient Tobacco Use Status: Never used Tobacco Sexual orientation: Straight/Heterosexual Gender identity: Female Female Reproductive History Menstrual Age of Menarche: 14 Review of Systems Const All systems reviewed & are unremarkable except as noted in HPI and below Reports no additional complaints ENT Reports Normal hearing present Card Denies chest pain, Denies chest pain at rest, Denies chest pain with activity and Denies pedal edema Resp Denies cough GI Denies abdominal pain Musc Denies abnormal gait, Denies muscle cramps and Denies radiating pain into limb Skin/Breast Denies skin ulcer and Denies wounds Neuro Reports Normal hearing present and Denies abnormal gait Psych Reports no additional complaints Physical Exam Vital Signs: BMI result Body Mass Index 36.3 Const General: cooperative, healthy appearing and comfortable Orientation/consciousness: oriented to person, oriented to place and oriented to time HEENT Head: Yes normal to inspection Neck Neck: Yes normal visual inspection Carotids: no bruits Chest Chest palpation & inspection: normal inspection of the chest Resp Effort & Inspection: normal respiratory effort and able to speak in complete sentences Auscultation: clear to auscultation bilaterally, no crackles, no rales, no rhonchi and no wheezes Cardio Other: Clearly palpable dorsalis pedis and posterior tibial pulses Rate: regular rate Rhythm: regular rhythm Heart sounds: S1 normal heart sound present and S2 normal heart sound present Bruits: no carotid bruits Peripheral pulses: Peripheral pulses 2+ throughout GI Inspection: Yes normal to inspection Skin Other: Toe ulcerations on the dorsum of the foot very superficial and small on the right 2nd and left 1st and 2nd toes. Wounds: no wounds Hair: normal Neuro General: oriented to person, oriented to place and oriented to time Cranial nerves: Yes CN's II-XII intact bilaterally and Yes Normal hearing present Cognition (Neuro): normal cognition Motor exam (neuro): 5/5 motor strength present throughout Extrem Other: venous exam: +1 edema General: No clubbing, No cyanosis and Yes edema Psych Appearance: grossly normal Mental Status: mental status grossly normal Speech and movement: Normal speech and movement present Results Reviewed Results Reviewed: Brief summary of venous insufficiency testing is as follows: right great saphenous vein: negative right small saphenous vein: negative right accessory vein: none present left great saphenous vein: Focally positive at left knee left small saphenous vein: negative left accessory vein: none present Please note there is no evidence of any venous aneurysms or significant tortuosity Assessment & Plan Assessment & Plan (1) Varicose veins of both lower extremities with inflammation: Code(s): I83.11 - Varicose veins of right lower extremity with inflammation; I83.12 - Varicose veins of left lower extremity with inflammation Category: Medical Plan: In short patient is essentially negative for any significant venous insufficiency. She did have prior treatment on the right side and the left side although focally positive would not treat. I do not think that would address her symptomatology and help her with her toes. I did discuss this with her in detail and in addition getting in contact with a good bladder blower. In addition she has a diagnosis familiar adenomas polyposis which has been known to be associated with rheumatologic conditions. Should symptoms persist she may benefit from a rheumatologic evaluation. She will follow up with us on an as- needed basis. Thank you for allowing us to assist in her care. If there are any questions or concerns please do not hesitate to contact us. Coding Level of Care Code Est Pt Level 4 (57054) Diagnoses Varicose veins of both lower extremities with inflammation I83.11; I83.12
--- OUTSIDE RECORDS SUMMARY | 2024-07-26 19:08 | XMS_ITS | Clinical Summary ---
Author Organization 175 [facility] Address 175 [place] [address] Phone Care Team Providers Care Olive Packer Name Role Phone Ericka Contreras MD Primary Care Provider [phone] Allergies No known active allergies Medications blood [...] PM EST Office Visit Internal Medicine - [place] 175 [facility] [address] [place] [address] Wyatt Lucas MD Raynaud's disease without gangrene (Primary Dx); Myokymia; Pain in lateral portion of left knee 05/19/2024 Telephone Internal Medicine - [place] 175 [facility] [address] [place] [address] Ericka Contreras MD [place]: Referral 05/17/2024 10:00 AM EST Telemedicine Bariatric Surgery - [place] 175 [facility] [address] [place] [address] Class 2 [...] cryosurgery TONSILLECTOMY PROCEDURE: HISTORICAL TONSILLECTOMY SECTION PROCEDURE: ND DELIVERY ONLY Medical History Medical History Date [...] Care Team (Late st Contact Info) Description 07/28/2024 3:15 PM EST Telemedicine [facility] [place] 175 [facility] [address] [place] [address] Daya Contreras MD [address] [place] [address] 08/15/2024 12:30 AM EDT Telemedicine Bariatric Surgery - [place] 175 [facility] 120 [place] [phone] Darlene Ball, RD 175 [facility] 120 [place] [phone] 08/17/2024 3:20 PM EDT Consult Gastroenterology - 299 [facility] 299 [facility] [address] [place] [phone] Noel Nash MD 229 [facility] [address] [place] [address] 09/06/2024 3:30 PM EDT Office Visit Bariatric Surgery - [place] [address] [facility] [address] [place] [phone] Shyla Singh PA 271 [facility] 120 [place] [address] 09/28/2024 3:45 PM EDT Office Visit Internal Medicine - [place] [address] [facility] [address] [facility] 200 [place] [phone] Nicolás Medina, TOD 175 [facility] 200 [place] [address] Health Maintenance Due Date Last Done Comments Breast Cancer Screening 1970 Hepatitis B Vaccines (1 of 3 - 19+ 3-dose series) 09/30/1990 Cervical Cancer Screening: Pap Smear 09/30/1992 Pneumococcal Vaccine: 50+ Years (1 of 1 - PCV) 09/30/2021 Zoster Vaccines (1 of 2) 09/30/2021 HIV Screening 05/03/2022 Social Influencers of Health Screening 05/03/2022 COVID-19 Vaccine ( - 2023- season) 2024 10/14/2020, 09/23/2020 Influenza [...] Name Priority Date/Time Associated Diagnosis Comments EXTERNAL VASCULAR ULTRASOUND 07/13/2024 EXTERNAL VASCULAR ULTRASOUND 07/13/2024 EXTERNAL COLONOSCOPY REPORT 05/19/2024 VITAMIN D 25 [...] aura and without status migrainosus, not intractable HM DEPRESSION SCREENING Routine 01/29/2024 HEPATITIS C SCREENING Routine 03/18/2022 from Last 3 Months or Most Recently Relevant to Health Maintenance Results * External Vascular Ultrasound (07/13/2024) Only the most recent of2 resultswithin the time period is included. Anatomical Region Laterality Modality Ultrasound Provider [facility] CV VASCULAR PROCEDURES F inal Result * External Colonoscopy Report (05/19/2024) Anatomical Region Laterality Modality Endoscopy Provider [facility] GI~PROCEDURE ORDERABLES Final Result * (ABNORMAL) Lipid panel with reflex to direct LDL (05/03/2024 12:10 PM EST) Cholesterol 179 0 - 200 mg/dL LAB CHEMISTRY METHOD 05/03/2024 4:39 PM [facility] Triglycerides 155(H) 0 - 150 mg/dL LAB CHEMISTRY METHOD 05/03/2024 4:39 PM [facility] HDL 53 >=40 mg/dL LAB CHEMISTRY METHOD 05/03/2024 4:39 PM EST [facility] LDL Calculated 95 0 - 100 mg/dL LAB CHEMISTRY METHOD 05/03/2024 4:39 PM EST [facility] VLDL Cholesterol Robinson 31 mg/dL LAB CHEMISTRY METHOD 05/03/2024 4:39 PM [facility] Non HDL Chol. (LDL+VLDL) 126 <145 mg/dL LAB CHEMISTRY METHOD 05/03/2024 4:39 PM [facility] Chol/HDL Ratio 3.4 0.0 - 4.4 LAB CHEMISTRY METHOD 05/03/2024 4:39 PM [facility] Blood Venous blood specimen / Unknown Venipuncture / Unknown 05/03/2024 12:10 PM EST 05/03/2024 12:10 PM EST Ericka Contreras MD LAB BLOOD ORDERABLES Final Res ult [facility] [address] [place] [address], [place] [phone] * (ABNORMAL) Vitamin D 25 hydroxy (05/03/2024 12:10 PM EST) [facility] Vit D, 25-Hydroxy 28.6(L) 30.0 - 80.0 ng/mL LAB CHEMISTRY METHOD 05/03/2024 4:30 PM EST [facility] Blood Venous blood specimen / Unknown Venipuncture / Unknown 05/03/2024 12:10 PM EST 05/03/2024 12:10 PM EST us Ericka Contreras MD LAB BLOOD ORDERABLES Final Res ult [facility] [address] [place] [address], [place] [phone] * (ABNORMAL) Complete blood count (05/03/2024 12:10 PM EST) [facility] WBC 7.1 4.8 - 10.8 K/mcL LAB HEMETOLOGY METHOD 05/03/2024 2:16 PM [facility] RBC 4.10 3.80 - 4.80 M/mcL LAB HEMETOLOGY METHOD 05/03/2024 2:16 PM [facility] Hemoglobin 13.2 11.5 - 16.0 g/dL LAB HEMETOLOGY METHOD 05/03/2024 2:16 PM [facility] Hematocrit 39.0 35.0 - 47.0 % LAB HEMETOLOGY METHOD 05/03/2024 2:16 PM [facility] MCV 95.4 79.0 - 98.0 FL LAB HEMETOLOGY METHOD 05/03/2024 2:16 PM [facility] MCH 32.3(H) 27.0 - 32.0 pcg LAB HEMETOLOGY METHOD 05/03/2024 2:16 PM [facility] MCHC 33.8 32.0 - 37.0 g/dL LAB HEMETOLOGY METHOD 05/03/2024 2:16 PM EST [facility] RDW 12.9 11.0 - 15.0 % LAB HEMETOLOGY METHOD 05/03/2024 2:16 PM EST [facility] Platelets 315 130 - 400 K/mcL LAB HEMETOLOGY METHOD 05/03/2024 2:16 PM EST [facility] MPV 10.7 7.0 - 11.0 FL LAB HEMETOLOGY METHOD 05/03/2024 2:16 PM EST [facility] NRBC 0.0 <1.0 % LAB HEMETOLOGY METHOD 05/03/2024 2:16 PM EST [facility] NRBC Absolute 0.00 <0.10 K/mcL LAB HEMETOLOGY METHOD 05/03/2024 2:16 PM EST [facility] Blood Venous blood specimen / Unknown Venipuncture / Unknown 05/03/2024 12:10 PM EST 05/03/2024 12:10 PM EST us Ericka Contreras MD LAB BLOOD ORDERABLES Final Res ult [facility] [address] [place] [address], * Hemoglobin A1c (05/03/2024 12:10 PM EST) Hemoglobin A1C 6.4 <6.5 % LAB CHEMISTRY METHOD 05/03/2024 6:56 PM EST [facility] Mean Bld Glu Estim. 137 mg/dL LAB CHEMISTRY METHOD 05/03/2024 6:56 PM EST [facility] Blood Venous blood specimen / Unknown Venipuncture / Unknown 05/03/2024 12:10 PM EST 05/03/2024 12:10 PM EST us Ericka Contreras MD LAB BLOOD ORDERABLES Final Res ult [facility] [address] [place] [address], * (ABNORMAL) Comprehensive metabolic panel (05/03/2024 12:10 PM EST) Sodium 142 133 - 145 mmol/L LAB CHEMISTRY METHOD 05/03/2024 4:39 PM [facility] Potassium 4.1 3.5 - 5.5 mmol/L LAB CHEMISTRY METHOD 05/03/2024 4:39 PM [facility] Chloride 108 96 - 110 mmol/L LAB CHEMISTRY METHOD 05/03/2024 4:39 PM [facility] CO2 27 21 - 32 mmol/L LAB CHEMISTRY METHOD 05/03/2024 4:39 PM [facility] Anion Gap 7 3 - 11 LAB CHEMISTRY METHOD 05/03/2024 4:39 PM [facility] Glucose 112(H) 70 - 100 mg/dL LAB CHEMISTRY METHOD 05/03/2024 4:39 PM [facility] BUN 14 5 - 25 mg/dL LAB CHEMISTRY METHOD 05/03/2024 4:39 PM [facility] Creatinine 0.67 0.50 - 1.10 mg/dL LAB CHEMISTRY METHOD 05/03/2024 4:39 PM [facility] eGFR 105 >=60 mL/min/1. 73m2 LAB CHEMISTRY METHOD 05/03/2024 4:39 PM [facility] Comment:Calculation based on the??Chronic Kidney Disease Epidemiology Collaboration (CKD-EPI) equation refit??without adjustment for race. BUN/Creatinine Ratio 20.9 LAB CHEMISTRY METHOD 05/03/2024 4:39 PM [facility] Calcium 9.7 8.5 - 10.5 mg/dL LAB CHEMISTRY METHOD 05/03/2024 4:39 PM EST [facility] AST (SGOT) 19 10 - 42 unit/L LAB CHEMISTRY METHOD 05/03/2024 4:39 PM [facility] ALT (SGPT) 32 10 - 60 unit/L LAB CHEMISTRY METHOD 05/03/2024 4:39 PM [facility] Alkaline Phosphatase 116 42 - 121 unit/L LAB CHEMISTRY METHOD 05/03/2024 4:39 PM [facility] Total Protein 7.1 6.0 - 8.0 g/dL LAB CHEMISTRY METHOD 05/03/2024 4:39 PM [facility] Albumin 4.0 3.2 - 5.0 g/dL LAB CHEMISTRY METHOD 05/03/2024 4:39 PM [facility] Total Bilirubin 0.3 0.0 - 1.4 mg/dL LAB CHEMISTRY METHOD 05/03/2024 4:39 PM [facility] Blood Venous blood specimen / Unknown Venipuncture / Unknown 05/03/2024 12:10 PM EST 05/03/2024 12:10 PM EST Ericka Contreras MD LAB BLOOD ORDERABLES Final Res ult [facility] [address] [place] [address], * Depression Screening (01/29/2024) Depression Screening Abstracted Historical Provider HEALTH MAINTENANCE Final Result * Hepatitis C Screening (03/18/2022) Hepatitis C Screening Abstracted us Historical Provider HEALTH MAINTENANCE Final Result from Last 3 Months or Most Recently Relevant to Health Maintenance Insurance [facility] MEDICAID - [place] Care Teams Olive Packer Relationship Specialty Start Date End Date Ericka Contreras MD [address] [address] PCP - General Internal Medicine 03/30/24
== END 2024-07-26 16:00 | disposition home or self-care (01) ==
PROVIDERS: PCP Internal Medicine; Visit Provider Surgery Vascular Surgery
DX: I83.11 Varicose veins of right lower extremity with inflammation (principal); I83.12 Varicose veins of left lower extremity with inflammation
CPT/HCPCS: 99214

== ENCOUNTER 2024-08-03 10:15 | Day surgery (SDC) | payer BC, MEDICAID, SELFPAY ==
--- OUTSIDE RECORDS SUMMARY | 2024-07-14 07:44 | XMS_ITS | Clinical Summary ---
Author Organization 175 [facility] Address 175 [place] [address] Phone Care Team Providers Care Plodder Operator Name Role Phone Ericka Contreras MD Primary Care Provider [phone] Allergies No known active allergies Medications blood [...] PM EST Office Visit Internal Medicine - [place] 175 [facility] [address] [place] [address] Wyatt Lucas MD Raynaud's disease without gangrene (Primary Dx); Myokymia; Pain in lateral portion of left knee 05/19/2024 Telephone Internal Medicine - [place] 175 [facility] [address] [place] [address] Ericka Contreras MD [place]: Referral 05/17/2024 10:00 AM EST Telemedicine Bariatric Surgery - [place] 175 [facility] [address] [place] [address] Class 2 [...] cryosurgery TONSILLECTOMY PROCEDURE: HISTORICAL TONSILLECTOMY SECTION PROCEDURE: [place] DELIVERY ONLY Medical History Medical History Date [...] 08/15/2024 12:30 AM EDT Telemedicine Bariatric Surgery [facility] [address] [phone] Darlene Ball, RD [address] [phone] 08/17/2024 3:20 PM EDT Consult Gastroenterology - 299 [facility] [address] [phone] Noel Nash MD [address] [address] 09/06/2024 3:30 PM EDT Office Visit Bariatric Surgery [facility] [address] [phone] Shyla Singh PA [address] [address] 09/28/2024 3:45 PM EDT Office Visit Internal Medicine - [place] 175 [facility] [address] [place] [phone] Nicolás Medina NP 175 [facility] 200 [place] [address] Health Maintenance Due Date Last Done Comments [...] mg/dL LAB CHEMISTRY METHOD 05/03/2024 4:39 PM [facility] Triglycerides 155(H) 0 - 150 mg/dL LAB CHEMISTRY METHOD 05/03/2024 4:39 PM [facility] HDL 53 >=40 mg/dL LAB CHEMISTRY METHOD 05/03/2024 4:39 PM [facility] LDL Calculated 95 0 - 100 mg/dL LAB CHEMISTRY METHOD 05/03/2024 4:39 PM [facility] VLDL Cholesterol Robinson 31 mg/dL LAB CHEMISTRY METHOD 05/03/2024 4:39 PM [facility] Non HDL Chol. (LDL+VLDL) 126 <145 mg/dL LAB CHEMISTRY METHOD 05/03/2024 4:39 PM [facility] Chol/HDL Ratio 3.4 0.0 - 4.4 LAB CHEMISTRY METHOD 05/03/2024 4:39 PM [facility] Blood Venous blood specimen / Unknown Venipuncture / Unknown 05/03/2024 12:10 PM EST 05/03/2024 12:10 PM EST us Ericka Contreras MD LAB BLOOD ORDERABLES Final Res ult [facility] [address] [place] [address], * (ABNORMAL) Vitamin D 25 hydroxy (05/03/2024 12:10 PM EST) Vit D, 25-Hydroxy 28.6(L) 30.0 - 80.0 ng/mL LAB CHEMISTRY METHOD 05/03/2024 4:30 PM [facility] Blood Venous blood specimen / Unknown Venipuncture / Unknown 05/03/2024 12:10 PM EST 05/03/2024 12:10 PM EST us Ericka Contreras MD LAB BLOOD ORDERABLES Final Res ult [facility] [address] [place] [address], * (ABNORMAL) Complete blood count (05/03/2024 12:10 PM EST) [facility] Signature WBC 7.1 4.8 - 10.8 K/mcL LAB HEMETOLOGY METHOD 05/03/2024 2:16 PM EST [facility] RBC 4.10 3.80 - 4.80 M/mcL LAB HEMETOLOGY METHOD 05/03/2024 2:16 PM EST [facility] Hemoglobin 13.2 11.5 - 16.0 g/dL LAB HEMETOLOGY METHOD 05/03/2024 2:16 PM [facility] Hematocrit 39.0 35.0 - 47.0 % LAB HEMETOLOGY METHOD 05/03/2024 2:16 PM EST [facility] MCV 95.4 79.0 - 98.0 FL LAB HEMETOLOGY METHOD 05/03/2024 2:16 PM [facility] MCH 32.3(H) 27.0 - 32.0 pcg LAB HEMETOLOGY METHOD 05/03/2024 2:16 PM [facility] MCHC 33.8 32.0 - 37.0 g/dL LAB HEMETOLOGY METHOD 05/03/2024 2:16 PM EST [facility] RDW 12.9 11.0 - 15.0 % LAB HEMETOLOGY METHOD 05/03/2024 2:16 PM [facility] Platelets 315 130 - 400 K/mcL LAB HEMETOLOGY METHOD 05/03/2024 2:16 PM [facility] MPV 10.7 7.0 - 11.0 FL LAB HEMETOLOGY METHOD 05/03/2024 2:16 PM [facility] NRBC 0.0 <1.0 % LAB HEMETOLOGY METHOD 05/03/2024 2:16 PM EST [facility] NRBC Absolute 0.00 <0.10 K/mcL LAB HEMETOLOGY METHOD 05/03/2024 2:16 PM EST [facility] Blood Venous blood specimen / Unknown Venipuncture / Unknown 05/03/2024 12:10 PM EST 05/03/2024 12:10 PM EST Ericka Contreras MD LAB BLOOD ORDERABLES Final Res ult Performing Organization Address City/[facility]/ZIP Co de Phone Number [facility] [address] [place] [address], [place] [phone] * Hemoglobin A1c (05/03/2024 12:10 PM EST) Hemoglobin A1C 6.4 <6.5 % LAB CHEMISTRY METHOD 05/03/2024 6:56 PM EST [facility] Mean Bld Glu Estim. 137 mg/dL LAB CHEMISTRY METHOD 05/03/2024 6:56 PM EST [facility] Blood Venous blood specimen / Unknown Venipuncture / Unknown 05/03/2024 12:10 PM EST 05/03/2024 12:10 PM EST us Ericka Contreras MD LAB BLOOD ORDERABLES Final Res ult [facility] [address] [place] [address], [place] [phone] * (ABNORMAL) Comprehensive metabolic panel (05/03/2024 12:10 PM EST) Sodium 142 133 - 145 mmol/L LAB CHEMISTRY METHOD 05/03/2024 4:39 PM EST [facility] Potassium 4.1 3.5 - 5.5 mmol/L LAB CHEMISTRY METHOD 05/03/2024 4:39 PM EST [facility] Chloride 108 96 - 110 mmol/L LAB CHEMISTRY METHOD 05/03/2024 4:39 PM [facility] CO2 27 21 - 32 mmol/L LAB CHEMISTRY METHOD 05/03/2024 4:39 PM [facility] Anion Gap 7 3 - 11 LAB CHEMISTRY METHOD 05/03/2024 4:39 PM [facility] Glucose 112(H) 70 - 100 mg/dL LAB CHEMISTRY METHOD 05/03/2024 4:39 PM [facility] BUN 14 5 - 25 mg/dL LAB CHEMISTRY METHOD 05/03/2024 4:39 PM [facility] Creatinine 0.67 0.50 - 1.10 mg/dL LAB CHEMISTRY METHOD 05/03/2024 4:39 PM [facility] eGFR 105 >=60 mL/min/1. 73m2 LAB CHEMISTRY METHOD 05/03/2024 4:39 PM [facility] Comment:Calculation based on the??Chronic Kidney Disease Epidemiology Collaboration (CKD-EPI) equation refit??without adjustment for race. BUN/Creatinine Ratio 20.9 LAB CHEMISTRY METHOD 05/03/2024 4:39 PM [facility] Calcium 9.7 8.5 - 10.5 mg/dL LAB CHEMISTRY METHOD 05/03/2024 4:39 PM [facility] AST (SGOT) 19 10 - 42 unit/L LAB CHEMISTRY METHOD 05/03/2024 4:39 PM [facility] ALT (SGPT) 32 10 - 60 unit/L LAB CHEMISTRY METHOD 05/03/2024 4:39 PM [facility] Alkaline Phosphatase 116 42 - 121 unit/L LAB CHEMISTRY METHOD 05/03/2024 4:39 PM [facility] Total Protein 7.1 6.0 - 8.0 g/dL LAB CHEMISTRY METHOD 05/03/2024 4:39 PM [facility] Albumin 4.0 3.2 - 5.0 g/dL LAB CHEMISTRY METHOD 05/03/2024 4:39 PM EST [facility] Total Bilirubin 0.3 0.0 - 1.4 mg/dL LAB CHEMISTRY METHOD 05/03/2024 4:39 PM EST [facility] Blood Venous blood specimen / Unknown Venipuncture / Unknown 05/03/2024 12:10 PM EST 05/03/2024 12:10 PM EST Ericka Contreras MD LAB BLOOD ORDERABLES Final Res ult [facility] [address] [place] [address], * Depression Screening (01/29/2024) Depression Screening Abstracted Historical Provider HEALTH MAINTENANCE Final Result * Hepatitis C Screening (03/18/2022) Hepatitis C Screening Abstracted Historical Provider HEALTH MAINTENANCE Final Result from Last 3 Months or Most Recently Relevant to Health Maintenance Insurance [facility] MEDICAID - [place] Care Teams Plodder Operator Relationship Specialty Start Date End Date Ericka Contreras MD [address] [address] PCP - General Internal Medicine 03/30/24
--- OUTSIDE RECORDS SUMMARY | 2024-07-14 07:44 | XMS_ITS | Encounter Summary ---
Author Organization [facility] Address [address] [place] [address] Care Team Providers Care Facilities Specialist Name Role Phone Ericka Contreras MD Primary Care Provider [phone] Reason for Referral * Consultation (Routine) - Authorized Specialty Diagnoses / Procedures Referred By Jay coker Referred To Contact Gastroenterology Diagnoses Chronic idiopathic constipation Multiple polyps of sigmoid colon Ericka Contreras MD [address] [address] Phone: tel: fax: [facility] - Gastroenterology [address] [place] [address] [place] [address] Phone: tel: fax: Referral ID Status Reason Start Date Expiration Date Visits Requested Visits Authorized [id number] Authorized Specialty Services Required 05/19/2025 1 1 Reason for Visit * Reason Onset Date Comments [place]: Referral 05/19/2024 Encounter Details Date Type Department Care Team (Late st Contact Info) Description 05/19/2024 Telephone Internal Medicine - [place] 175 [facility] [address] [place] [address] Ericka Contreras MD 175 [facility] 200 [place] [address] [place]: Referral Social History Tobacco [...] a internal referral to gastro dept on [address] [place] [address] for a second opinion because her gastro in [place] is not being helpful and she needs to be seen due polyps in colon. Please advise Cb# [phone] documented in this encounter Plan of Treatment Upcoming Encounters Date Type Department Care Team ([facility] Contact Info) Description 08/15/2024 12:30 AM EDT Telemedicine Bariatric Surgery [address] [phone] Darlene Ball, RD [address] [address] 08/17/2024 3:20 PM EDT Consult Gastroenterology - [address] [place] [phone] Noel Nash MD [address] [address] 09/06/2024 3:30 PM EDT Office Visit Bariatric Surgery [address] [place] [address] Shyla Singh PA 271 [facility] 120 [place] [address] 09/28/2024 3:45 PM EDT Office Visit Internal Medicine - [place] 175 [facility] [address] [place] [phone] Nicolás Medina NP 175 [facility] 200 [place] [address] Scheduled Referrals Name Type Priority Associated Diagnoses Order Schedule Ambulatory referral to Gastroenterology Outpatient Referral Routine Chronic idiopathic constipation Multiple polyps of sigmoid colon 1 Occurrences starting 05/19/2024 until 05/19/2025 documented as of this encounter Visit Diagnoses Diagnosis Chronic idiopathic constipation- Primary Unspecified constipation Multiple polyps of sigmoid colon documented in this encounter Care Teams Facilities Specialist Relationship Specialty Start Date End Date Ericka Contreras MD [address] [address] PCP - General Internal Medicine 03/30/24 documented as of this encounter
--- NOTE | 2024-08-02 09:35 | HO.ANESPROP2 ---
Documented by User: Sabine Henderson NP 08/02/24 09:39 HPI - Anesthesia Eval Consult details Narrative: 53yo F for Upper Endo with Hybrid APC PMFSH Active Problems Active Problems: All Active Problems Menopause (Acute) Varicose veins of both lower extremities with inflammation (Acute) Amenorrhea (Acute) Ovarian cyst (Acute) Postmenopausal bleeding (Acute) Pelvic pain (Acute) High blood pressure (Acute) Well woman exam (Acute) Hypothyroid (Acute) Menorrhagia (Acute) Potential exposure to STD (Acute) Yeast dermatitis (Acute) Well woman exam with routine gynecological exam (Acute) Attenuated familial adenomatous polyposis (Acute) Tubular adenoma (Acute) Constipation (Acute) Past Medical History Medical History Sleep apnea Attenuated familial adenomatous polyposis Tubular adenoma Hx of migraines Herpes simplex Hypothyroidism (acquired) Constipation Hyperlipidemia Kuldip's thyroiditis Family History Family history of problems with anesthesia: No Surgical History Surgical History Hx of dilation and curettage H/O LEEP History of tonsillectomy History of endoscopy Hx of colonoscopy Hx of section History of Problems with Anesthesia: No Social History Social History Are you a primary residential care officer to a significant other at home: No Do you presently have visiting nurse or other home services: No Alcohol intake: current Alcohol intake frequency: holidays/special occasions only Alcohol type: wine Patient Tobacco Use Status: Never used Tobacco Use of substances other than those prescribed or required for medical reasons: No Have you been hit, kicked, punched, or otherwise hurt by someone within the past year? If so, by whom?: No Are you DNR?: No Advance Directives: No Advance Directives Information Provided: Yes Recently lost weight without trying: No Sexual orientation: Straight/Heterosexual Gender identity: Female Meds Allergies Allergy/AdvReac Type Severity Reaction Status Date / Time No Known Allergies Allergy Verified 07/26/24 15:16 Home Medications ?Medication ?Instructions ?Recorded ?Confirmed ?Last Taken ?Type levothyroxine 100 mcg capsule 100 mcg PO DAILY 05/11/20 05/16/24 Unknown History valacyclovir 500 mg tablet 500 mg PO DAILY 02/14/21 07/08/23 Unknown History (Valtrex) amitriptyline 10 mg tablet 10 mg PO BEDTIME 02/13/23 05/16/24 Unknown History labetalol 100 mg tablet 100 mg PO BID 02/13/23 05/16/24 Unknown History sumatriptan succinate 25 mg tablet 25 mg PO DAILY 02/13/23 05/16/24 Unknown History tizanidine 4 mg tablet 4 mg PO BEDTIME 02/13/23 05/16/24 Unknown History topiramate 100 mg tablet 100 mg PO DAILY 02/13/23 05/16/24 Unknown History eletriptan 40 mg tablet 40 mg PO DAILY PRN Migraine 08/18/23 05/16/24 Unknown History Headache cholecalciferol (vitamin D3) 50 1 PO DAILY 05/27/24 Unknown History mcg (2,000 unit) capsule meloxicam 7.5 mg tablet 7.5 mg PO DAILY 05/27/24 Unknown History Assessment and Plan Assessment Anesthesia Assessment: Chart Reviewed Final Anesthetic Review Family History of Problems with Anesthesia: No History of Problems with Anesthesia: No Documented by User: Georgina Kiran MD 08/03/24 11:09 [facility] Past Medical History Medical History Sleep apnea Attenuated familial adenomatous polyposis Tubular adenoma Hx of migraines Herpes simplex Hypothyroidism (acquired) Constipation Hyperlipidemia Kuldip's thyroiditis Surgical History Surgical History Hx of dilation and curettage H/O LEEP History of tonsillectomy History of endoscopy Hx of colonoscopy Hx of section Social History Social History Are you a primary residential care officer to a significant other at home: No Do you presently have visiting nurse or other home services: No Alcohol intake: current Alcohol intake frequency: holidays/special occasions only Alcohol type: wine Patient Tobacco Use Status: Never used Tobacco Use of substances other than those prescribed or required for medical reasons: No Have you been hit, kicked, punched, or otherwise hurt by someone within the past year? If so, by whom?: No Are you DNR?: No Advance Directives: No Advance Directives Information Provided: Yes Recently lost weight without trying: No Sexual orientation: Straight/Heterosexual Gender identity: Female Meds Allergies Allergy/AdvReac Type Severity Reaction Status Date / Time No Known Allergies Allergy Verified 07/26/24 15:16 Home Medications ?Medication ?Instructions ?Recorded ?Confirmed ?Last Taken ?Type levothyroxine 100 mcg capsule 100 mcg PO DAILY 05/11/20 05/16/24 Unknown History valacyclovir 500 mg tablet 500 mg PO DAILY 02/14/21 07/08/23 Unknown History (Valtrex) amitriptyline 10 mg tablet 10 mg PO BEDTIME 02/13/23 05/16/24 Unknown History labetalol 100 mg tablet 100 mg PO BID 02/13/23 05/16/24 Unknown History sumatriptan succinate 25 mg tablet 25 mg PO DAILY 02/13/23 05/16/24 Unknown History tizanidine 4 mg tablet 4 mg PO BEDTIME 02/13/23 05/16/24 Unknown History topiramate 100 mg tablet 100 mg PO DAILY 02/13/23 05/16/24 Unknown History eletriptan 40 mg tablet 40 mg PO DAILY PRN Migraine 08/18/23 05/16/24 Unknown History Headache cholecalciferol (vitamin D3) 50 1 PO DAILY 05/27/24 Unknown History mcg (2,000 unit) capsule meloxicam 7.5 mg tablet 7.5 mg PO DAILY 05/27/24 Unknown History Exam Airway Mallampati Class: II TM Dist: >3cm Neck ROM: Full Heart: rrr Lungs: cta Assessment and Plan Assessment Anesthesia Assessment: Anesthesia Plan Discussed Final Anesthetic Review NPO: Yes ASA Class: III Final Preanesthetic Review: No Changes in Pt Med Stat, Meds/Allgs Chart Reviewed and Consent Obtained/Reviewed Patient Risk: Intermediate Procedure Risk: Intermediate Anesthetic Plan Anesthetic Plan: MAC: Disposition: Standard PACU
[2024-08-03 10:33] VITALS: BP 153/86; PULSE 84; RESP 16; TEMP 36.8; O2SAT 99; BMI 36.2
[2024-08-03] MEDS: Lactated Ringers 1,000 ML 100 ML IVCONT (10:43)
--- NOTE | 2024-08-03 11:11 | P.HPSUR_ITS ---
Pre-Procedural Eval Section A - 24 Hr Update-Section A only Date of Service: 08/03/24 Section B - Complete if H&P > 30 days Chief Complaint: Benign neoplasm, unspecified site Relevant Family History (Specify if Yes): No Relevant Social History: None Present Medications: see Short Stay Collaborative assessment Medical History: Significant History ( Sleep apnea Attenuated familial adenomatous polyposis Tubular adenoma Hx of migraines Herpes simplex Hypothyroidism (acquired) Constipation Hyperlipidemia Kuldip's thyroiditis) History of Previous Operations: Relevant previous surgery/procedure and date(s) ( Hx of dilation and curettage H/O LEEP History of tonsillectomy History of endoscopy Hx of colonoscopy Hx of section) Allergies: Allergies Allergy/AdvReac Type Severity Reaction Status Date / Time No Known Allergies Allergy Verified 07/26/24 15:16 Family History Family history of problems with anesthesia: No Surgical History Surgical History Review of Systems Sugical H&P ROS: Negative: Constitution, Cardiovascular, Respiratory, Neurological, Psychiatric, Hem-Onc, Allergic/Immunologic, Gastrointestinal, Genitourinary, Musculoskeletal, Integumentary, Endocrine and Eyes/Ears/Nose/Throat Exam Surgical H&P Exam: Normal: HEENT, Normal: Heart, Normal: Lungs, Normal: Extr emities, Normal: Abdomen, Normal: Skin and Normal: Neurological Plan Diagnosis/Plan: Unchanged I have reviewed the history and physical and performed a pertinent physical examination on my patient. No changes have occurred unless specified. Time Spent With Patient Time: Total time managing care of this patient today ____ minutes.
--- NOTE | 2024-08-03 12:47 | W.PM.OPN ---
Operative Note Operative Note Date of Service: 08/03/24 Narrative: Procedure Description: EGD Indication: Duodenal polyp Anesthesia: MAC then coverted to GA due to food in stomach FLEXIBLE TRANSORAL UPPER GASTROINTESTINAL ENDOSCOPY UPPER ENDOSCOPY Consent: Indications for the procedure and potential complications of bleeding, perforation, reaction to medications and missed diagnosis were discussed with the patient and informed consent was obtained. Instrument: Olympus GIF H 190 J mid size upper endoscope Monitoring: Vital signs and clinical assessment, continuous EKG monitoring, Pulse oximetry, Carbon Dioxide monitoring and blood pressure monitoring were done throughout the procedure. Procedure: The patient was placed in the left lateral decubitis position and pre-procedure medications were administered and a bite block was placed. The endoscope was inserted into the mouth and advanced under direct vision to the third part of duodenum. A careful inspection was made as the upper endoscope was withdrawn including a retroflexed examination of the proximal stomach; Findings and interventions are described below. Findings: Larynx:normal Esophagus: GE junction at 37 cm, diaphragm hiatus at 37 cm, normal mucosa Stomach: Numerous polypoid lesions noted in fundus and mid body of stomach . Grade 2 flap valve on retroflexed examination of the cardia. food was noted in the stomach. Duodenum: In the second part of duodenum just past the sweep and adenomatous appearing polypoid lesion was noted on the posterior wall. this was injected and lifted with eleview and epinephrine and then removed piece meal using a cold snare. The base and edges were then ablated with APC and hemospray was applied. The papilla was assessed using a side viewing scope and appeared normal. I also went to 4 th part of duodenum and no polyps were seen. Intervention: cold snare and eleview with APC and hemospray Impression/Findings: duodenal polyp gastric polyposis possible gastroparesis PLAN: Avoid NSAID and aspirin for 3 d--if any melena, fever, worsening abdominal pain, come to ED or call the office GERD precautions may need GES to assess for gastroparesis repeat EGD in 3 months or so
[2024-08-03 13:02] VITALS: BP 154/92; PULSE 83; RESP 18; TEMP 36.4; O2SAT 100
[2024-08-03 13:07] VITALS: BP 133/81; PULSE 78; RESP 18; O2SAT 97
[2024-08-03 13:12] VITALS: BP 134/95; PULSE 88; RESP 18; O2SAT 95
[2024-08-03 13:17] VITALS: BP 154/85; PULSE 80; RESP 18; O2SAT 98
[2024-08-03 13:32] VITALS: BP 135/88; PULSE 78; RESP 18; TEMP 36.5; O2SAT 99
== END 2024-08-03 14:14 | disposition home or self-care (01) ==
PROVIDERS: PCP Internal Medicine; Visit Provider Internal Medicine Gastroenterology
PROC: (CPT 43251; principal; 2024-08-03 12:20)
DX: D13.2 Benign neoplasm of duodenum (principal); K31.7 Polyp of stomach and duodenum; D13.91 Familial adenomatous polyposis; K21.9 Gastro-esophageal reflux disease without esophagitis; E78.5 Hyperlipidemia, unspecified; E03.9 Hypothyroidism, unspecified; G47.33 Obstructive sleep apnea (adult) (pediatric)
CPT/HCPCS: 43251; 43236; 88305; J0171; J0330; J1100; J2003; J2250; J2405; J2704; J3010; Q9968

== ENCOUNTER → 2024-08-03 10:15 | Outpatient (BNV) | payer BC, MEDICAID, SELFPAY | PROVIDERS: PCP Internal Medicine; Visit Provider Internal Medicine Gastroenterology | DX: K31.7 Polyp of stomach and duodenum (principal) | CPT/HCPCS: 43236; 43251 ==

== ENCOUNTER 2024-09-14 15:06 | Outpatient (AMB) | payer BC, MEDICAID, SELFPAY ==
--- NOTE | 2024-09-14 15:08 | A.OFFVIS_ITS ---
Vital Signs 09/14/24 15:16 Height 5 ft 6 in Weight 224 lb BMI 36.2 BP 136/72 Blood Pressure Location Lt brachial Position Sitting Pulse 96 Pulse Source Pulse Oximeter Pulse Oximetry (%) 96 Oxygen Delivery Method Room Air Intake Visit Reasons: S/P EGD; D Intake Note: ESTABLISHED PATIENT for Attenuated familial adenomatous polyposis mgmt. S/P EGD w/ TH Chief Complaint; Pt denies any new GI sx or concerns. Chronic conditions remain unchanged. Pt reports [facility] initial visit is scheduled for late September 2024. Ophthalmic Tech Required: No Accompanied by: Son Allergies No Known Allergies Allergy (Verified 09/14/24 15:17) HPI HPI S/P EGD; D: Details: LAST VISIT: Tubular adenoma Attenuated familial adenomatous polyposis Constipation GERD (gastroesophageal reflux disease) Plan Continue Dulcolax and MiraLax. Patient was encouraged to increase fluid intake and activity to promote better bowel motility. Continue Pepcid. Avoid dietary triggers and late night snacking. Staying upright for minimum 3 hours after meals discussed with patient. Patient was encouraged to keep her appointment with [place]. Will discuss with Dr. Irene and schedule patient for upper endoscopy to remove duodenal tubular adenoma. Patient will follow-up in the office in 2 in 3 months. She will call us if she will have any GI concerning symptoms. She is agreeable to this plan and verbalizes understanding of instructions. She was given the opportunity to ask questions and all questions answered. ? TODAY'S VISIT Patient is here today for follow-up and for requested visit. Patient will be leaving end of September to [place] for whole summer with her son. Patient will be going to see genetic gastrologist in [facility] before she leaves. Was able to speak to them on the phone and arrange for quicker visit as she was not able to see 1 of the providers still January or February. Patient is less anxious and upset today as she was able to meet with them over the phone. Currently patient reports that she continues to have constipation if she does not take MiraLax and Dulcolax. [facility] Medical History (Updated 09/14/24 @ 20:37 by Surekha Rosado, [facility]) Adenomatous duodenal polyp Gastric polyposis Sleep apnea Attenuated familial adenomatous polyposis Tubular adenoma Hx of migraines Herpes simplex Hypothyroidism (acquired) Constipation Hyperlipidemia Kuldip's thyroiditis Surgical History Hx of dilation and curettage H/O LEEP History of tonsillectomy History of endoscopy Hx of colonoscopy Hx of section Social History Are you a primary rn patient care to a significant other at home: No Do you presently have visiting nurse or other home services: No Alcohol intake: current Alcohol intake frequency: holidays/special occasions only Alcohol type: wine Patient Tobacco Use Status: Never used Tobacco Sexual orientation: Straight/Heterosexual Gender identity: Female Female Reproductive History Menstrual Age of Menarche: 14 Review of Systems Const Denies weight gain and Denies weight loss ENT Reports no additional complaints, Denies dysphagia and Denies odynophagia Card Reports no additional complaints Resp Reports no additional complaints GI Denies abdominal pain, Denies belching, Denies melena, Reports bloating (Occasional), Denies change in bowel habits, Reports constipation, Denies dysphagia, Denies excessive flatus, Denies dyspepsia, Denies heartburn, Denies diarrhea, Denies loose stools, Denies nausea, Denies odynophagia and Denies vomiting Reports no additional complaints Musc Reports no additional complaints Neuro Reports no additional complaints Psych Reports no additional complaints Endo Reports no additional complaints Physical Exam Vital Signs: Last Vital Signs Pulse 96 09/14/24 15:16 BP 136/72 09/14/24 15:16 Pulse Ox 96 09/14/24 15:16 Oxygen Delivery Method Room Air 09/14/24 15:16 BMI result Body Mass Index 36.2 Const General: healthy appearing and no acute distress Nutritional Appearance: obese Orientation/consciousness: patient oriented x3 Resp Effort & Inspection: normal respiratory effort, able to speak in complete sentences, no tracheal deviation and symmetric chest movement Auscultation: clear to auscultation bilaterally Cardio Rate: regular rate GI Inspection: Yes normal to inspection, No distended and Yes obesity Palpation (GI): Soft to palpation, not firm, nontender and No hepatosplenomegaly present Auscultation: normal bowel sounds General: Yes no CVA tenderness Back/Spine/Pelvis Back: no CVA tenderness Skin General skin exam: elasticity normal, turgor normal and dry skin Neuro General: patient oriented x3 Extrem Other: Bilateral feet with red and inflamed toes, decreased capillary refill. Bilateral feet edema General: No no clubbing, cyanosis or edema Psych Appearance: grossly normal Mental Status: mental status grossly normal Affect: Anxious affect present Assessment & Plan Assessment & Plan (1) Tubular adenoma: Code(s): D36.9 - Benign neoplasm, unspecified site Category: Medical (2) Attenuated familial adenomatous polyposis: Code(s): D13.91 - Familial adenomatous polyposis Category: Medical (3) Constipation: Code(s): K59.00 - Constipation, unspecified Category: Medical Qualifiers: Constipation type: slow transit constipation Qualified Code(s): K59.01 - Slow transit constipation (4) GERD (gastroesophageal reflux disease): Code(s): K21.9 - Gastro-esophageal reflux disease without esophagitis Qualifiers: Esophagitis presence: without esophagitis Qualified Code(s): K21.9 - Gastro-esophageal reflux disease without esophagitis (5) Adenomatous duodenal polyp: Code(s): D13.2 - Benign neoplasm of duodenum Category: Medical (6) Gastric polyposis: Code(s): K31.7 - Polyp of stomach and duodenum Category: Medical Plan Discussed with patient that she can take metformin and aspirin, however that will not help in treating the polyposis. Patient was encouraged not to cancel her endoscopy with Dr. Irene end of September. Keep appointment with specialist in [place]. Patient will follow-up with us in January. Patient will call our office if she will have any GI concerning symptoms. She is agreeable to this pl an and verbalizes understanding of instructions. She was given the opportunity to ask questions and all questions answered. Thank you allowing me to participate in her care Orders: Referrals Podiatry Referral M79.671 - Pain in right foot, M79.672 - Pain in left foot Medications: New metformin 500 mg PO DAILY 90 tabs 2RF aspirin (Adult Aspirin Regimen) 81 mg PO DAILY 90 tabs 2RF Coding Level of Care Code Est Pt Level 4 (44658) Complex EM visit Add On G2211 Diagnoses Tubular adenoma D36.9 Attenuated familial adenomatous polyposis D13.91 Slow transit constipation K59.01 Constipation type: slow transit constipation Gastroesophageal reflux disease without esophagitis K21.9 Esophagitis presence: without esophagitis Adenomatous duodenal polyp D13.2 Gastric polyposis K31.7 Time Spent (min) 35 Comment 25 minutes spent with patient and additional 10 minutes spent reviewing her records
[2024-09-14 15:16] VITALS: BP 136/72; PULSE 96; O2SAT 96; BMI 36.2
--- OUTSIDE RECORDS SUMMARY | 2024-09-14 17:54 | XMS_ITS | Clinical Summary ---
Author Organization [address] [facility] Address [address] [place] [address] Phone Care Team Providers Care Barrel Lapper Name Role Phone Ericka Contreras MD Primary Care Provider [phone] Allergies No known active allergies Medications blood pressure monitor (Blood Pressure Kit) kit 1 Units by Does not apply route daily. 09/06/19 22 Active SUMAtriptan (IMITREX) 25 mg tablet MAY [...] breakfast 90 tablet 1 07/08/19 25 Active labetaloL (NORMODYNE) 100 mg tablet Take 1 tablet (100 mg total) by mouth 2 (two) times a day. 180 tablet 1 07/08/19 25 Active amLODIPine (NORVASC) 2.5 mg tablet Take 1 tablet (2.5 mg total) by mouth 1 (one) time each day. 90 tablet 3 07/08/19 25 Active nystatin (MYCOSTATIN) 100,000 unit/gram powder Apply topically 2 (two) times a day. 60 g 1 07/30/19 25 Active meloxicam (MOBIC) 7.5 mg tablet TAKE 1 TABLET BY MOUTH EVERY DAY 30 tablet 5 08/31/19 25 Active tirzepatide, weight loss, (Zepbound) 2.5 mg/0.5 mL injectionIndica tions:Class 2 severe obesity due to excess calories with serious comorbidity and body mass index (BMI) of 36.0 to 36.9 in adult ([facility] V24, [facility] V28),BAHMAN (obstructive sleep apnea),HTN (hypertension), benign,Hyperlip emia, mixed Inject 0.5 mL (2.5 mg total) under the skin every 7 (seven) days. 2 mL 09/10/19 25 Active meloxicam (MOBIC) 7.5 mg tablet Take 1 tablet (7.5 mg total) by mouth 1 (one) time each day. 30 tablet 5 07/08/19 25 025 Discontinued Active Problems Problem Noted Date Diagnosed Date Class 2 severe obesity with serious comorbidity and body mass index (BMI) of 36.0 to 36.9 in adult ([facility] V24, [facility] V28) 04/01/2024 Migraine without aura and wi thout [...] Encounters Date Type Department Care Team Description 09/06/2024 3:30 PM EDT Office Visit Bariatric Surgery - [address] [place] [address] Shyla Singh PA Class 2 severe obesity due to excess calories with serious comorbidity and body mass index (BMI) of 36.0 to 36.9 in adult (CMS/HCC V24, CMS/HCC V28) (Primary Dx); BAHMAN (obstructive sleep apnea); HTN (hypertension), benign; Hyperlipemia, mixed 08/23/2024 11:00 AM EDT Telemedicine Bariatric Surgery - [address] [place] [address] Class 2 severe obesity with serious comorbidity and body mass index (BMI) of 35.0 to 35.9 in adult, unspecified obesity type ([facility] V24, CMS/[facility] V28) (Primary Dx) from Last 3 Months Immunizations [...] Sign Reading Time Taken Comments Blood Pressure 124/82 09/06/2024 3:29 PM EDT Pulse 94 09/06/2024 3:29 PM EDT Temperature 36.6 ??C (97.9 ??F) 06/10/2024 12:[address] Respiratory Rate - - Oxygen Saturation 98% 06/10/2024 12:17 PM EST Inhaled Oxygen Concentration - - Weight 102 kg (225 lb 9.6 oz) 09/06/2024 3:29 PM EDT Height 167.6 cm (5' 6 ) 09/06/2024 3:29 PM EDT Body Mass Index 36.41 09/06/2024 3:29 PM EDT Plan of Treatment Upcoming Encounters Date Type Department Care Team (Late st Contact Info) Description 09/28/2024 3:45 PM EDT Office Visit Internal Medicine - [place] [address] [phone] Nicolás Medina, TOD [address] [id number] 11/14/2024 10:30 AM EDT Telemedicine Bariatric Surgery - [place] [address] [phone] Darlene Ball, RD [address] [phone] 02/06/2025 3:30 PM EDT Office Visit Bariatric Surgery [address] [phone] Shyla Singh, PA [address] [phone] Health Maintenance Due Date Last Done Comments Hepatitis B Vaccines (1 of 3 - 19+ 3-dose series) 09/30/1990 Cervical Cancer Screening: Pap Smear 09/30/1992 Pneumococcal Vaccine: 50+ Years (1 of 1 - PCV) 09/30/2021 Zoster Vaccines (1 of 2) 09/30/2021 HIV Screening 05/03/2022 Social Influencers of Health Screening 05/03/2022 COVID-19 Vaccine ( - season) 2024 10/14/2020, 09/23/2020 Influenza Vaccine (Season Ended) 2025 03/18/2022, 02/13/2021, 01/25/2020, Additional history exists Depression Screening 01/28/2025 01/29/2024 Hypertension/CHF/CAD Annual BMP Blood Test 05/03/2025 05/03/2024, 02/05/2023 Breast Cancer Screening 01/31/2026 02/01/2024 DTaP,Tdap,and Td Vaccines (2 - Td or [...] age to complete this topic Meningococcal B Vaccine Aged Out No l onger eligible based on patient's age to complete [...] Name Priority Date/Time Associated Diagnosis Comments EXTERNAL ENDOSCOPY REPORT 08/03/2024 EXTERNAL VASCULAR ULTRASOUND 07/13/2024 EXTERNAL VASCULAR ULTRASOUND 07/13/2024 EXTERNAL COLONOSCOPY REPORT 05/19/2024 COMPREHENSIVE METABOLIC PANEL Routine 05/03/2024 12:10 PM EST Encounter for vitamin deficiency screening HTN (hypertension), benign Migraine without aura and without status migrainosus, not intractable LIPID PANEL WITH REFLEX TO DIRECT LDL Routine 05/03/2024 12:10 PM EST Encounter for vitamin deficiency screening HTN (hypertension), benign Migraine without aura and without status migrainosus, not intractable MAMMOGRAPHY Routine 02/01/2024 DEPRESSION SCREENING Routine 01/29/2024 HEPATITIS C SCREENING Routine 03/18/2022 from Last 3 Months or Most Recently Relevant to Health Maintenance Results * External Endoscopy (08/03/2024) Anatomical Region Laterality Modality Endoscopy us Provider [facility]~PROCEDURE ORDERABLES Final Result * External Vascular Ultrasound (07/13/2024) Only the most recent of2 resultswithin the time period is included. Anatomical Region Laterality Modality Ultrasound us Provider [facility] CV VASCULAR PROCEDURES F inal Result * External Colonoscopy Report (05/19/2024) Anatomical Region Laterality Modality Endoscopy us Provider [facility]~PROCEDURE ORDERABLES Final Result * (ABNORMAL) Lipid panel with reflex to direct LDL (05/03/2024 12:10 PM EST) Cholesterol 179 0 - 200 mg/dL LAB CHEMISTRY METHOD 05/03/2024 4:39 PM [facility] Triglycerides 155(H) 0 - 150 mg/dL LAB CHEMISTRY METHOD 05/03/2024 4:39 PM [facility] HDL 53 >=40 mg/dL LAB CHEMISTRY METHOD 05/03/2024 4:39 PM [facility] LDL Calculated 95 0 - 100 mg/dL LAB CHEMISTRY METHOD 05/03/2024 4:39 PM [facility] VLDL Cholesterol Robinson 31 mg/dL LAB CHEMISTRY METHOD 05/03/2024 4:39 PM [facility] Non HDL Chol. (LDL+VLDL) 126 <145 mg/dL LAB CHEMISTRY METHOD 05/03/2024 4:39 PM [facility] Chol/HDL Ratio 3.4 0.0 - 4.4 LAB CHEMISTRY METHOD 05/03/2024 4:39 PM [facility] Blood Venous blood specimen / Unknown Venipuncture / Unknown 05/03/2024 12:10 PM EST 05/03/2024 12:10 PM EST us Ericka Contreras MD LAB BLOOD ORDERABLES Final Res ult [facility] [address] [place] [address], [place] [phone] * (ABNORMAL) Comprehensive metabolic panel (05/03/2024 12:10 PM EST) Sodium 142 133 - 145 mmol/L LAB CHEMISTRY METHOD 05/03/2024 4:39 PM [facility] Potassium 4.1 3.5 - 5.5 mmol/L LAB CHEMISTRY METHOD 05/03/2024 4:39 PM [facility] Chloride 108 96 - 110 mmol/L LAB CHEMISTRY METHOD 05/03/2024 4:39 PM [facility] CO2 27 21 - 32 mmol/L LAB CHEMISTRY METHOD 05/03/2024 4:39 PM [facility] Anion Gap 7 3 - 11 LAB CHEMISTRY METHOD 05/03/2024 4:39 PM [facility] Glucose 112(H) 70 - 100 mg/dL LAB CHEMISTRY METHOD 05/03/2024 4:39 PM [facility] BUN 14 5 - 25 mg/dL LAB CHEMISTRY METHOD 05/03/2024 4:39 PM [facility] Creatinine 0.67 0.50 - 1.10 mg/dL LAB CHEMISTRY METHOD 05/03/2024 4:39 PM [facility] eGFR 105 >=60 mL/min/1. 73m2 LAB CHEMISTRY METHOD 05/03/2024 4:39 PM [facility] Comment:Calculation based on the??Chronic Kidney Disease Epidemiology Collaboration (CKD-EPI) equation refit??without adjustment for race. BUN/Creatinine Ratio 20.9 LAB CHEMISTRY METHOD 05/03/2024 4:39 PM [facility] Calcium 9.7 8.5 - 10.5 mg/dL LAB CHEMISTRY METHOD 05/03/2024 4:39 PM [facility] AST (SGOT) 19 10 - 42 unit/L LAB CHEMISTRY METHOD 05/03/2024 4:39 PM [facility] ALT (SGPT) 32 10 - 60 unit/L LAB CHEMISTRY METHOD 05/03/2024 4:39 PM [facility] Alkaline Phosphatase 116 42 - 121 unit/L LAB CHEMISTRY METHOD 05/03/2024 4:39 PM [facility] Total Protein 7.1 6.0 - 8.0 g/dL LAB CHEMISTRY METHOD 05/03/2024 4:39 PM [facility] Albumin 4.0 3.2 - 5.0 g/dL LAB CHEMISTRY METHOD 05/03/2024 4:39 PM [facility] Total Bilirubin 0.3 0.0 - 1.4 mg/dL LAB CHEMISTRY METHOD 05/03/2024 4:39 PM [facility] Blood Venous blood specimen / Unknown Venipuncture / Unknown 05/03/2024 12:10 PM EST 05/03/2024 12:10 PM EST us Ericka Contreras MD LAB BLOOD ORDERABLES Final Res ult [facility] [address] [place] [address], [place] [phone] * Mammography (02/01/2024) Mammogram abstract [facility] / Anatomical Region Laterality Modality Other us Historical Provider HEALTH MAINTENANCE Final Result * Depression Screening (01/29/2024) Depression Screening Abstracted Historical Provider HEALTH MAINTENANCE Final Result * Hepatitis C Screening (03/18/2022) Hepatitis C Screening Abstracted Historical Provider HEALTH MAINTENANCE Final Result from Last 3 Months or Most Recently Relevant to Health Maintenance Insurance [facility] MEDICAID - [place] Care Teams Barrel Lapper Relationship Specialty Start Date End Date Ericka Contreras MD [address] [facility] [address] [place] [address] PCP - General Internal Medicine 03/30/24
== END 2024-09-14 15:37 | disposition home or self-care (01) ==
LOC: HO.HGI 15:07
PROVIDERS: PCP Internal Medicine; Visit Provider Nurse Practitioner Family
DX: D36.9 Benign neoplasm, unspecified site (principal); D13.91 Familial adenomatous polyposis; K59.01 Slow transit constipation; K21.9 Gastro-esophageal reflux disease without esophagitis; D13.2 Benign neoplasm of duodenum; K31.7 Polyp of stomach and duodenum
CPT/HCPCS: 99214

== ENCOUNTER 2025-02-02 16:06 | Outpatient (AMB) | payer BC, MEDICAID, SELFPAY ==
--- NOTE | 2025-02-02 16:17 | A.OFFVIS_ITS ---
Vital Signs 02/02/25 16:20 Height 5 ft 6 in Weight 190 lb BMI 30.7 BP 124/86 Blood Pressure Location Rt brachial Position Sitting Pulse 90 Pulse Source Pulse Oximeter Pulse Oximetry (%) 97 Oxygen Delivery Method Room Air Intake Visit Reasons: Follow up r/s 01/24 Intake Note: ESTABLISHED PATIENT for Attenuated familial adenomatous polyposis mgmt. Chief Complaint; Pt denies any GI sx at this time. Pt states that she has been doing well since last visit and has been successfully losing weight. Non Morse Intercept Technician Required: No Accompanied by: Child Allergies No Known Allergies Allergy (Verified 02/06/25 15:29) HPI HPI Follow up r/s 01/24: Details: LAST VISIT: Tubular adenoma Attenuated familial adenomatous polyposis Constipation GERD (gastroesophageal reflux disease) Adenomatous duodenal polyp Gastric polyposis Plan Discussed with patient that she can take metformin and aspirin, however that will not help in treating the polyposis. Patient was encouraged not to cancel her endoscopy with Dr. Irene end of September. Keep appointment with specialist in [place]. Patient will follow-up with us in January. Patient will call our office if she will have any GI concerning symptoms. She is agreeable to this plan and verbalizes understanding of instructions. She was given the opportunity to ask questions and all questions answered. ? Thank you allowing me to participate in her care Referrals Podiatry Referral [id number], M79.672 New metformin 500 mg PO DAILY 90 tabs 2RF aspirin (Adult Aspirin Regimen) 81 mg PO DAILY 90 tabs 2RF TODAY'S VISIT: Patient is here today for follow-up. Patient reports that she has been doing well. Seen GI specialist in [place] and reports she had endoscopy and colonoscopy done. She needs to return for colonoscopy in 1 year. Patient does report that she had suboptimal prep. Only 1 polyp was found per patient. Patient was encouraged to get us copies of the report. Will try to obtain it from [facility]. Patient is also reporting that she is doing well. Denies any GI concerning symptoms. Reports that she is moving her bowels without any issues. Currently is taking GLP 1 and she reports losing weight. Patient denies any nausea or vomiting. Patient denies any epigastric pain. Denies any dyspepsia, dysphagia or odynophagia. [facility] Medical History Adenomatous duodenal polyp Gastric polyposis Sleep apnea Attenuated familial adenomatous polyposis Tubular adenoma Hx of migraines Herpes simplex Hypothyroidism (acquired) Constipation Hyperlipidemia Kuldip's thyroiditis Surgical History Hx of dilation and curettage H/O LEEP History of tonsillectomy History of endoscopy Hx of colonoscopy Hx of section Social History Are you a primary clinical care coordinator to a significant other at home: No Do you presently have visiting nurse or other home services: No Alcohol intake: current Alcohol intake frequency: holidays/special occasions only Alcohol type: wine Patient Tobacco Use Status: Never used Tobacco Sexual orientation: Straight/Heterosexual Gender identity: Female Female Reproductive History Menstrual Age of Menarche: 14 Review of Systems Const Denies weight gain and Denies weight loss ENT Reports no additional complaints, Denies dysphagia and Denies odynophagia Card Reports no additional complaints Resp Reports no additional complaints GI Denies abdominal pain, Denies belching, Denies melena, Denies bloating, Denies change in bowel habits, Denies dysphagia, Denies excessive flatus, Denies dyspepsia, Denies heartburn, Denies diarrhea, Denies loose stools, Denies nausea, Denies odynophagia and Denies vomiting Musc Reports no additional complaints Neuro Reports no additional complaints Psych Reports no additional complaints Endo Reports no additional complaints Physical Exam Vital Signs: Last Vital Signs Pulse 90 02/02/25 16:20 BP 124/86 02/02/25 16:20 Pulse Ox 97 02/02/25 16:20 Oxygen Delivery Method Room Air 02/02/25 16:20 BMI result Body Mass Index 30.7 Const General: healthy appearing and no acute distress Nutritional Appearance: obese Orientation/consciousness: patient oriented x3 Resp Effort & Inspection: normal respiratory effort, able to speak in complete se ntences, no tracheal deviation and symmetric chest movement Auscultation: clear to auscultation bilaterally Cardio Rate: regular rate GI Inspection: Yes normal to inspection, No distended and Yes obesity Palpation (GI): Soft to palpation, not firm, nontender and No hepatosplenomegaly present Auscultation: normal bowel sounds General: Yes no CVA tenderness Back/Spine/Pelvis Back: no CVA tenderness Skin General skin exam: elasticity normal, turgor normal and dry skin Neuro General: patient oriented x3 Extrem Other: Bilateral feet with red and inflamed toes, decreased capillary refill. Bilateral feet edema General: No no clubbing, cyanosis or edema Psych Appearance: grossly normal Mental Status: mental status grossly normal Affect: Anxious affect present Assessment & Plan Assessment & Plan (1) Gastric polyposis: Code(s): K31.7 - Polyp of stomach and duodenum Category: Medical (2) Constipation: Code(s): K59.00 - Constipation, unspecified Category: Medical Qualifiers: Constipation type: slow transit constipation Qualified Code(s): K59.01 - Slow transit constipation (3) Attenuated familial adenomatous polyposis: Code(s): D13.91 - Familial adenomatous polyposis Category: Medical Plan Patient was encouraged to continue with [facility] for her colonoscopy next year. Continue aspirin and metformin for now. Patient denies melena, hematochezia, unintentional weight loss or ribbon like stools. Continue avoiding dietary triggers. Increase fluid intake and activity to promote better bowel motility. Patient will follow-up in 4 months, sooner on as needed basis. She is agreeable to this plan and verbalizes understanding of instructions. She was given the opportunity to ask questions and all questions answered. Thank you for allowing me to participate in her care Medications: Refilled aspirin (Adult Aspirin Regimen) 81 mg PO DAILY 90 tabs 2RF metformin 500 mg PO DAILY 90 tabs 2RF Coding Level of Care Code Est Pt Level 4 (58406) Complex EM visit Add On G2211 Diagnoses Gastric polyposis K31.7 Slow transit constipation K59.01 Constipation type: slow transit constipation Attenuated familial adenomatous polyposis D13.91 Time Spent (min) 40 Comment 25 minutes spent with patient and additional 15 minutes spent reviewing her records
[2025-02-02 16:20] VITALS: BP 124/86; PULSE 90; O2SAT 97; BMI 30.7
--- OUTSIDE RECORDS SUMMARY | 2025-02-02 18:54 | XMS_ITS | Encounter Summary ---
Author Organization [facility] Address [address] [facility] [address] [place] [id number] Phone Care Team Providers Care Minibus Driver Name Role Phone Ericka Contreras MD Primary Care Provider [phone] Encounter Details Date Type Department Care Team (Late st Contact Info) Description 10/20/2024 Procedure Pass [facility] [address] [facility], 4th [place] [address] Social History Tobacco Use Types Packs/Day Years Used Date Smoking Tobacco: Never Smokeless Tobacco: Never Comments:Back when i was in high school casualy nithing on over 30 years Alcohol Use Standard Drinks/Week Comments Not Currently 0 (1 standard drink = 0.6 oz pure alcohol) Once or twice a month wine or alcohol if i feel like some Education Answer Date Recorded Are you interested in more education? Not on beny e 06/17/2024 Are you concerned about learning? Not on file 06/17/2024 No 06/17/2024 No 06/17/2024 Digital Access Answer Date Recorded No 06/17/2024 No 06/17/2024 Reliable internet access at home? Not on file 06/17/2024 Device with a working camera? Not on file Intimate Partner Violence Answer Date R ecorded Are you denied basic needs s uch as food, clothing, or medical care? No 10/20/2024 In the past 12 months have y ou been in a relationship with a person who hurts, threatens, or tries to control you? No 10/20/2024 Are you denied basic needs s uch as food, clothing, or medical care? No 10/20/2024 In the past 12 months have y ou been in a relationship with a person who hurts, threatens, or tries to control you? No 10/20/2024 Comments No Sex and Gender Information Value Date Recorded Sex Assigned at Female 06/03/2024 4:25 PM EST Legal Sex Female 4:21 PM EST Gender Identity Female 06/03/2024 4:25 PM EST Sexual Orientation Straight 06/03/2024 4: 25 PM EST documented as of this encounter Plan of Treatment Not on file documented as of this encounter Visit Diagnoses Not on filedocumented in this encounter Care Teams Minibus Driver Relationship Specialty Start Date End Date Ericka Contreras MD [address] [place] [address] [address] [place] [id number] PCP - General Internal Medicine 06/03/24 documented as of this encounter Additional Source Comments The information contained in this document represents components of the legal health record. It is not the complete legal health record.[facility]
--- OUTSIDE RECORDS SUMMARY | 2025-02-02 18:54 | XMS_ITS | Clinical Summary ---
Author Organization [facility] Address [address] [address] Phone Care Team Providers Care Jewel Flat Surfacer Name Role Phone Ericka Contreras MD Primary Care Provider [phone] Allergies No known active allergies Medications valACYclovir (VALTREX) 500 MG tablet Take 1 tablet by mouth every morning. 5 Active bisacodyl (DULCOLAX) 5 mg EC tablet Take 10 mg by mouth nightly at bedtime. 5 Active amitriptyline (ELAVIL) 10 MG tablet Take 10 mg by mouth nightly at bedtime as needed. 5 Active meloxicam (MOBIC) 7.5 MG tablet 5 Active levothyroxine (SYNTHROID, LEVOTHROID) 100 MCG tablet Take 100 mcg by mouth. 5 Active amLODIPine (NORVASC) 2.5 MG tablet Take 1 tablet by mouth every morning. 5 Active labetaloL (TRANDATE) 100 MG tablet 5 Active cholecalciferol (VITAMIN D3) 2,000 unit capsule Take 1 tablet by mouth every morning. 5 Active SUMAtriptan (IMITREX) 25 MG tablet As needed 5 Active topiramate (TOPAMAX) 100 MG tablet As needed 5 Active polyethylene glycol (MIRALAX) 17 gram/dose powder MIX 1 CAPFUL IN LIQUID AND DRINK DAILY 5 Active nystatin (NYSTOP) powder Apply topically 2 (two) times a day. APPLY TO AFFECTED AREA 5 Active eletriptan (RELPAX) 40 MG tablet Take 1 tablet by mouth every morning. As needed Active cetirizine (ZYRTEC) 5 MG tablet Take 5 mg by mouth daily. Active celecoxib (CELEBREX) 200 MG capsule Take 2 capsules (400 mg total) by mouth daily. 180 capsule 3 5 08/31/19 26 Active Encounters Date Type Department Care Team Description 11/05/2024 Refill [facility] [address] [facility]th [place] [address] Ricardo Flowers MD Medication Refill from Last 3 Months Social History Tobacco Use Types Packs/Day Years [...] Orientation Straight 06/03/2024 4: 25 PM EST Last Filed Vital Signs Vital Sign Reading Time Taken Comments Blood Pressure 157/83 10/20/2024 11:59 AM EDT Pulse 75 10/20/2024 11:59 AM EDT Temperature 36.1 C (97 F) 10/20/2024 11:09 AM EDT Respiratory Rate 16 10/20/2024 11:59 AM EDT Oxygen Saturation 96% 10/20/2024 11:59 AM EDT Inhaled Oxygen Concentration - - Weight 98.9 kg (218 lb) 09/29/2024 2:33 PM EDT Height 167.6 cm (5' 6 ) 09/29/2024 2:33 PM EDT Body Mass Index 35.19 09/29/2024 2:33 PM EDT Plan of Treatment Health Maintenance Due Date Last Done Comments TSH LEVEL 1970 DEPRESSION SCREENING 1983 HEPATITIS C SCREENING 09/30/1989 HIV ONE-TIME SCREENING (18-65 YEARS) 09/30/1989 PNEUMOCOCCAL VACCINES (50+ years) (1 of 2 - PCV) 09/30/1990 ZOSTER VACCINES (1 of 2) 09/30/1990 PAP SMEAR 09/30/1992 SCREENING FOR DIABETES 09/30/2006 MAMMOGRAM 2011 COLOGUARD 09/30/2016 FIT TEST 09/30/2016 FOBT 09/30/2016 SIGMOIDOSCOPY 09/30/2016 VIRTUAL COLONOSCOPY 09/30/2016 INFLUENZA VACCINE (#1) 2024 2, 02/13/2021, 01/25/2020, Additional history exists COVID-19 VACCINE (2024- season) 2025 10/14/2020, 09/23/2020 Adult Td,Tdap Booster 08/18/2026 08/18/2016 LIPID PANEL 05/03/2029 05/03/2024 COLONOSCOPY 10/20/2034 10/20/2024, 04/1 12/2024, 09/09/2024, Additional history exists COLORECTAL CANCER SCREENING 10/20/2034 SMOKING STATUS SCREENING (Once After 26 Yrs) Completed 10/20/2024 HEPATITIS A VACCINES Aged Out No long er eligible based on patient's age to complete this topic HIB VACCINES Aged Out No longer eligi ble based on patient's age to complete this topic MENINGOCOCCAL VACCINES (ACWY) Aged Out No longer eligible based on patient's age to complete this topic MENINGOCOCCAL VACCINES (B) Aged Out N o longer eligible based on patient's age to complete this topic Medical Devices Not on file Procedures Procedure Name Priority Date/Time Associated Diagnosis Comments ENDOSCOPY, COLON 10/20/2024 10:3 0 AM EDT from Last 3 Months or Most Recently Relevant to Health Maintenance Results * ENDOSCOPY, COLON (10/20/2024 10:30 AM EDT) 10/20/2024 10:3 0 AM EDT Narrative Transcriptions Ricardo Flowers MD - 10/20/2024 10:30 AM EDT Gastrointestinal Endoscopy Unit Patient Name: Yamilet Kramer Exam Date: 10/20/2024 10:30 AM Date of : 1970 Admit Type: Outpatient Age: 54 Room: [place] [address] Gender: Female Note Status: Finalized Attending MD: Ricardo Flowers MD, Procedure: Colonoscopy Indications: familial adenomatous polyposis Providers: Ricardo Flowers MD Referring MD: Ericka Contreras (Referring MD), Alvino Ruffin MD (Referring MD) Medicines: Monitored Anesthesia Care Complications: No immediate complications. Estimated blood loss: Minimal. Procedure: After obtaining informed consent, the endoscope was passed under direct vision. Throughout the procedure, the patient's blood pressure, pulse, and oxygen saturations were monitored continuously. The Endoscope was introduced through the anus and advanced to the the cecum, identified by appendiceal orifice and ileocecal valve. The colonoscopy was performed without difficulty. The patient tolerated the procedure well. The quality of the bowel preparation was fair. The ileocecal valve, appendiceal orifice, and rectum were photographed. Findings: Small internal hemorrhoids. Two polyps in the cecum were found and removed via cold snare that were 8-12mm in size. One 5mm sessile polyp in the transverse colon was removed via cold snare. There was diffuse melanosis of the colon. The bowel preparation was suboptimal with copious food residue in the colon. Impression: Small internal hemorrhoids. Two polyps in the cecum were found and removed via cold snare that were 8-12mm in size. One 5mm sessile polyp in the transverse colon was removed via cold snare. There was diffuse melanosis of the colon. The bowel preparation was suboptimal with copious food residue in the colon. Recommendation: - Discharge patient to home. - await pathology - follow-up with Dr. Ruffin - recommend repeat colonoscopy within 1 year with augmented bowel preparation - consider 2 day prep Attending Participation: I personally performed the entire procedure. Ricardo Flowers MD, [id number] 10/20/2024 11:33:32 AM The attending physician was present throughout the entire procedure. Number of Addenda: 0 Note Initiated On: 10/20/2024 10:30 AM [facility] Ernestine Contreras MD GI PROCEDURE ORDERABLES Fin al Result from Last 3 Months or Most Recently Relevant to Health Maintenance Insurance [facility]PO EPO [facility] PPO EPO [facility] PPO EPO Care Teams Jewel Flat Surfacer Relationship Specialty Start Date End Date Ericka Contreras MD [address] [phone] PCP - General Internal Medicine 06/03/24 Additional Source Comments The information contained in this document represents components of the legal health record. It is not the complete legal health record.[facility]
== END 2025-02-02 17:00 | disposition home or self-care (01) ==
PROVIDERS: PCP Internal Medicine; Visit Provider Nurse Practitioner Family
DX: K31.7 Polyp of stomach and duodenum (principal); K59.01 Slow transit constipation; D13.91 Familial adenomatous polyposis
CPT/HCPCS: 99214

== ENCOUNTER 2025-02-06 15:20 | Outpatient (AMB) | payer BC, MEDICAID, SELFPAY ==
--- NOTE | 2025-02-06 15:23 | MHC.OFFVIS ---
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 Complaining of spotting over last 2-3 months Last Pap/HPV was negative in 02/15 Last Mammogram was BI-RADS 1 in 02/15 Last screening colonoscopy was in 07/18 [facility] Medical History Adenomatous duodenal polyp Gastric polyposis Sleep apnea Attenuated familial adenomatous polyposis Tubular adenoma Hx of migraines Herpes simplex Hypothyroidism (acquired) Constipation Hyperlipidemia Kuldip's thyroiditis Surgical History Hx of dilation and curettage H/O LEEP History of tonsillectomy History of endoscopy Hx of colonoscopy Hx of section Social History Are you a primary career services assistant to a significant other at home: No Do you presently have visiting nurse or other home services: No Alcohol intake: current Alcohol intake frequency: holidays/special occasions only Alcohol type: wine Patient Tobacco Use Status: Never used Tobacco Sexual orientation: Straight/Heterosexual Gender identity: Female Female Reproductive History Menstrual Age of Menarche: 14 Date of last pap smear: 02/01/24 (negative pap smear, negative hpv ) Date of Mammogram: 02/01/24 (bi rad 1) Review of Systems Const All systems reviewed & are unremarkable except as noted in HPI and below Card Reports as per HPI Resp Reports as per HPI GI Reports as per HPI and Reports no additional complaints Reports as per HPI Physical Exam Vital Signs: Last Vital Signs BP 126/72 02/06/25 15:25 BMI result Body Mass Index 30.0 Const General: cooperative, healthy appearing and comfortable Chest Chest palpation & inspection: normal inspection of the chest and normal palpation of entire chest wall Breast/axilla inspection: normal inspection of the breasts and normal inspection of the axillae Breast/axilla palpation: normal palpation of the breasts, normal palpation of the axillae and no axillary lymphadenopathy Resp Effort & Inspection: normal respiratory effort Auscultation: clear to auscultation bilaterally Percussion: percussion normal Cardio Palpation: normal PMI Rate: regular rate Rhythm: regular rhythm Heart sounds: no murmurs and no rubs Peripheral pulses: Peripheral pulses 2+ throughout GI Inspection: Yes normal to inspection Palpation (GI): Soft to palpation, nontender, no guarding, not rigid and No hepatosplenomegaly present Percussion: Yes normal to percussion Auscultation: normal bowel sounds Rectal Exam - Female: deferred General: Yes bladder normal to palpation External Female Exam: No lesion Speculum Exam - Vagina: normal appearance of the vagina, normal palpation, normal vaginal discharge and not erythematous Speculum Exam - Cervix: normal appearance of the cervix and normal palpation Bimanual exam- vagina & uterus: normal bimanual exam, normal palpation, uterine size normal, bladder normal to palpation, consistency normal and normal palpation Bimanual Exam- Adnexa, other: normal adnexae, no masses and no tenderness Assessment & Plan Assessment & Plan (1) Well woman exam with routine gynecological exam: Code(s): Z01.419 - Encounter for gynecological examination (general) (routine) without abnormal findings Category: Medical Plan: Co testing not indicated this year. Counseled the patient about the recommended dietary allowance of 1200 mg of Calcium & 600 IU of vitamin D. Mammogram ordered. The patient was instructed to perform monthly self-breast exams and schedule annual exam in a year. All questions answered and the patient verbalized understanding. (2) Postmenopausal bleeding: Code(s): N95.0 - Postmenopausal bleeding Category: Medical Plan: Discussed with the patient the differential diagnosis of post menopausal bleeding with normal pelvic exam including but not limited to, endometrial hyperplasia, cancer, polyps and other causes; recommended ultrasound to measure the endometrial stripe; discussed with the patient that if the endometrial thickness is 4 mm or less the negative predictive value of endometrial pathology is 99%, otherwise If endometrial thickness is more than 4 mm will proceed with endometrial sampling versus hysteroscopy D&C polypectomy depending on the ultrasound findings. Instructed the patient to schedule an ultrasound with a follow-up appointment in 2 weeks. All questions answered, the patient verbalized understanding and agreed with the plan. This note was generated with a voice recognition program. Some errors may have been overlooked during the review of this note. Sometimes these errors may affect the content or meaning of a given sentence. Orders: Orders MM tomosynthesis screening BI Today Z12.31 - Encounter for screening mammogram for malignant neoplasm of breast US pelvic and transvaginal Today N95.0 - Postmenopausal bleeding Coding Level of Care Code Est Pt Prev Care 40-64y(62831) Diagnoses Well woman exam with routine gynecological exam Z01.419 Postmenopausal bleeding N95.0
[2025-02-06 15:25] VITALS: BP 126/72
--- OUTSIDE RECORDS SUMMARY | 2025-02-06 20:46 | XMS_ITS | Clinical Summary ---
Author Organization 175 [facility] Address [address] [place] [address] Phone Care Team Providers Care Spring Machine Operator Name Role Phone Ericka Contreras MD Primary Care Provider [phone] Allergies No known active allergies Medications blood pressure monitor (Blood Pressure Kit) kit 1 Units by Does not apply route daily. 09/06/19 22 Active topiramate (TOPAMAX) 100 mg tablet Take 1 Tablet by mouth daily. 11/08/19 23 Active amitriptyline (ELAVIL) 10 mg tablet Take 1 Tablet by mouth at bedtime as needed for Sleep. Active meloxicam (MOBIC) 7.5 mg tablet TAKE 1 TABLET BY MOUTH EVERY DAY 30 tablet 5 08/31/19 25 Active valACYclovir (VALTREX) 500 mg tabletIndication s:Herpesviral infection, unspecified Take 1 tablet (500 mg total) by mouth 1 (one) time each day. 90 tablet 1 09/29/19 25 Active labetaloL (NORMODYNE) 100 mg tabletIndication s:HTN (hypertension), benign Take 1 tablet (100 mg total) by mouth 2 (two) times a day. 180 tablet 1 09/29/19 25 Active docusate sodium (COLACE) 100 mg capsuleIndicatio ns:Constipation, unspecified constipation type Take 1 capsule (100 mg total) by mouth 2 (two) times a day. Take 1 Capsule by mouth 2 times daily. 180 capsule 3 09/29/19 25 Active levothyroxine (SYNTHROID, LEVOTHROID) 100 mcg tabletIndication s:Hypothyroidism , unspecified Take 1 tablet (100 mcg total) by mouth 1 (one) time each day. before breakfast 90 tablet 1 09/29/19 25 Active amLODIPine (NORVASC) 2.5 mg tabletIndication s:HTN (hypertension), benign Take 1 tablet (2.5 mg total) by mouth 1 (one) time each day. 90 tablet 3 09/29/19 25 Active nystatin (MYCOSTATIN) 100,000 unit/gram powderIndication s:Intertrigo Apply topically 2 (two) times a day. 60 g 1 09/29/19 25 Active cholecalciferol (Vitamin D3) 50 mcg (2,000 unit) tabletIndication s:Vitamin D deficiency Take 1 tablet (2,000 Units total) by mouth 1 (one) time each day. 90 tablet 2 09/29/19 25 Active SUMAtriptan (IMITREX) 25 mg tablet Take 1 tablet (25 mg total) by mouth 1 (one) time if needed for migraine. 9 tablet 5 11/22/19 25 025 Active cephalexin (KEFLEX) 500 mg capsuleIndicatio ns:Pain in toes of both feet TAKE 1 CAPSULE BY MOUTH TWICE A DAY FOR 7 DAYS 14 capsule 01/13/20 25 Active tirzepatide, weight loss, (Zepbound) 12.5 mg/0.5 mL injection Inject 0.5 mL (12.5 mg total) under the skin every 7 (seven) days for 28 days. 2 mL 01/26/20 25 025 Active tirzepatide, weight loss, (Zepbound) 10 mg/0.5 mL injection Inject 0.5 mL (10 mg total) under the skin every 7 (seven) days for 28 days. 2 mL 12/23/19 25 025 cephalexin (KEFLEX) 500 mg capsuleIndicatio ns:Pain in toes of both feet TAKE 1 CAPSULE BY MOUTH TWICE A DAY FOR 7 DAYS 14 capsule 12/27/19 25 025 Discontinued Active Problems Problem Noted Date Diagnosed Date Colon polyps 09/29/2024 Class 2 severe obesity with serious comorbidity and body mass index (BMI) of 36.0 to 36.9 in adult ([facility] V24, [facility] V28) 04/01/2024 Migraine without aura and wi [...] Encounters Date Type Department Care Team Description 01/30/2025 3:30 PM EDT Office Visit Internal Medicine - [place] 175 [facility] [address] [place] [phone] Nicolás Medina NP Pain in toes of both feet (Primary Dx); Anxiety and depression; Raynaud's disease without gangrene; Herpes simplex type 1 infection; Hypothyroidism, unspecified type; BAHMAN (obstructive sleep apnea); BMI 30.0-30.9,adult; Primary hypertension; Vitamin D deficiency; Chronic idiopathic constipation; Prediabetes 01/24/2025 Telephone Bariatric Surgery - [place] 175 [facility] [address] [place] [phone] Shyla Singh PA 12/28/2024 Telephone Bariatric Surgery - [place] [address] [phone] Shyla Singh PA 12/21/2024 Telephone Bariatric Surgery [facility] [address] [phone] Shyla Singh PA 12/02/2024 12:00 PM EDT Telemedicine Bariatric Surgery [facility] [address] [phone] Darlene Ball, AMIRAH Class 2 severe obesity with serious comorbidity and body mass index (BMI) of 35.0 to 35.9 in adult, unspecified obesity type ([facility] V24, [facility] V28) (Primary Dx) 11/08/2024 11:21 AM EDT - 11/08/2024 11:59 PM EDT Hospital Encounter [facility] Xray [address] [place] [phone] Pain in lateral portion of left knee Discharge Disposition: Home or Self Care from Last 3 Months Immunizations Name Administration Dates Next Due Influenza Quadravalent, MDCK , 0.5ml, preservative free (Flucelvax) 6mo and older 03/18/2022,03/14/2019 Surgical History Surgery Date Site/Laterality Comments OTHER SURGICAL HISTORY PROCEDURE: HISTORY OTHER; COMMENT: cervical cryosurgery TONSILLECTOMY PROCEDURE: HISTORICAL TONSILLECTOMY SECTION PROCEDURE: [place] DELIVERY ONLY Medical History Medical History Date [...] Family History Medical History Relation Name Comments Colon cancer Father Other: familial cardiomyopathy Father colon polyps, colon cancer Other: familial cardiomyopathy Sister Relation Name Status Comments Father Sister Social History Tobacco Use Types Packs/Day Years Used Date Smoking Tobacco: Never Smokeless Tobacco: Never Alcohol Use Standard Drinks/Week Comments No 0 (1 standard drink = 0.6 oz pur e alcohol) Housing Instability Answer Date Recorde d Are you worried that in the next 2 months you may not have stable housing? No 09/27/2024 Food Access & Nutrition Answer Date Rec orded Do you have access to a vari ety of food including fruits and vegetables? Yes 09/27/2024 Health Literacy Answer Date Recorded How often do you need to hav e someone help you when you read instructions, pamphlets, or other written material from your doctor or pharmacy? Never 09/27/2024 Caregiver: How often do you need to have someone help you when you read instructions, pamphlets, or other written material from your doctor or pharmacy? Not on file 09/27/2024 Financial Risk Answer Date Recorded How hard is it for you to pa y for the very basics like food, housing, medical care, and air conditioning / heating? Patient declined 09/27/2024 Transportation Answer Date Recorded Has the lack of transportati on kept you from meetings, work, or from getting things needed for daily living? No Has the lack of transportati on kept you from medical appointments or from getting medications? No 09/27/2024 Social Isolation Answer Date Recorded How often do you feel lonely or isolated from those around you? Patient declined 09/27/2024 Food Risk Answer Date Recorded Within the past 12 months we worried whether our food would run out before we got money to buy more. Patient declined 025 Within the past 12 months th e food we bought just didn't last and we didn't have money to get more. Patient declined 10/2024 Dependent Care Answer Date Recorded Do you need help finding or paying for care for your loved ones. For example, childrens club attendant or elderly care for an older adult? No 09/27/2024 Education Answer Date Recorded Do you think completing more education or training, like finishing a GED, going to college, or learning a trade, would be helpful for you? Patient declined 09/27/2024 Employment and Income Answer Date Recor ded During the last four weeks, have you been actively looking for work? No 09/27/2024 Living Situation Answer Date Recorded What is your living situation? 0 09/27/2024 Comments Unknown Sex and Gender Information Value Date Recorded Sex Assigned at Female 05/19/2024 3:48 PM EST Legal Sex Female 12:36 PM EST Gender Identity Female 05/19/2024 3:48 PM EST Sexual Orientation Straight 05/19/2024 3: 48 PM EST Obstetrics History Last Filed Vital Signs Vital Sign Reading Time Taken Comments Blood Pressure 138/74 01/30/2025 3:47 PM EDT Pulse 92 01/30/2025 3:47 PM EDT Temperature 36.2 C (97.1 F) 01/30/2025 3:47 PM EDT Respiratory Rate - - Oxygen Saturation 98% 01/30/2025 3:47 PM EDT Inhaled Oxygen Concentration - - Weight 86.5 kg (190 lb 12.8 oz) 01/30/2025 3:47 PM EDT Height 167.6 cm (5' 6 ) 01/30/2025 3:47 PM EDT Body Mass Index 30.8 01/30/2025 3:47 PM EDT Plan of Treatment Upcoming Encounters Date Type Department Care Team (Late st Contact Info) Description 02/23/2025 3:00 PM EDT Consult Orthopedic Surgery - [place] [address] [phone] Severino Sidhu, DPM [address] [phone] 02/24/2025 12:30 PM EDT Telemedicine Bariatric Surgery - [place] 175 [facility] [address] [place] [phone] Darlene Ball, RD 175 [facility] [address] [place] [phone] 08/02/2025 3:30 PM EDT Office Visit Internal Medicine - [place] 175 [facility] [address] [place] [phone] Nicolás Medina, TOD [address] [address] Health Maintenance Due Date Last Done Comments Hepatitis B Vaccines (1 of 3 - 19+ 3-dose series) 09/30/1990 Cervical Cancer Screening: Pap Smear 09/30/1992 Pneumococcal Vaccine: 50+ Years (1 of 1 - PCV) 09/30/2021 Zoster Vaccines (1 of 2) 09/30/2021 HIV Screening 05/03/2022 COVID-19 Vaccine ( - season) 2025 10/14/2020, 09/23/2020 Influenza Vaccine (#1) 2025 , 02/13/2021, 01/25/2020, Additional history exists Hypertension/CHF/CAD Annual BMP Blood Test 05/03/2025 05/03/2024, 02/05/2023 Social Influencers of Health Screening 09/27/2025 09/27/2024 Breast Cancer Screening 01/31/2026 02/01/2024 DTaP,Tdap,and Td Vaccines (2 - Td or Tdap) 08/18/2026 08/18/2016 Cholesterol Screening (Lipid Panel) 11/08/2029 11/08/2024, 05/03/2024, 02/05/2023 Colorectal Cancer Screening: Colonoscopy 05/19/2034 05/19/2024, 07/14/2023, 07/14/2023, Additional history exists Hepatitis C Screening Completed 03/18/2022 Depression Screening Completed 09/27/2024, 01/29/20 24 HIB Vaccines Aged Out No longer eligi [...] Procedure Name Priority Date/Time Associated Diagnosis Comments CBC WITH AUTO DIFFERENTIAL Routine 11/08/2024 11:44 AM EDT Pain in toes of both feet LIPID PANEL WITH REFLEX TO DIRECT LDL Routine 11/08/2024 11:44 AM EDT Hyperlipemia, mixed HEMOGLOBIN A1C Routine 11/08/2024 11:44 AM EDT Hyperglycemia LG IFA WITH TITER AND PATTERN Routine 11/08/2024 11:44 AM EDT Pain in toes of both feet URIC ACID Routine 11/08/2024 11:44 AM EDT Pain in toes of both feet CBC AND DIFFERENTIAL Routine 11/08/2024 11:44 AM EDT Pain in toes of both feet XR KNEE 4+ VIEWS LEFT Routine 11/08/2024 11:41 AM EDT Pain in lateral portion of left knee EXTERNAL COLONOSCOPY REPORT 05/19/2024 COMPREHENSIVE METABOLIC PANEL Routine 05/03/2024 12:10 PM EST Encounter for vitamin deficiency screening HTN (hypertension), benign Migraine without aura and without status migrainosus, not intractable HM MAMMOGRAPHY Routine 02/01/2024 DEPRESSION SCREENING Routine 01/29/2024 HEPATITIS C SCREENING Routine 03/18/2022 from Last 3 Months or Most Recently Relevant to Health Maintenance Results * (ABNORMAL) Lipid panel with reflex to direct LDL (11/08/2024 11:44 AM EDT) Cholesterol 173 0 - 200 mg/dL LAB CHEMISTRY METHOD 11/08/2024 1:32 PM EDT [facility] Triglycerides 91 0 - 150 mg/dL LAB CHEMISTRY METHOD 11/08/2024 1:32 PM EDT [facility] HDL 48 >=40 mg/dL LAB CHEMISTRY METHOD 11/08/2024 1:32 PM EDT [facility] LDL Calculated 107(H) 0 - 100 mg/dL LAB CHEMISTRY METHOD 11/08/2024 1:32 PM EDT [facility] VLDL Cholesterol Robinson 18.2 mg/dL LAB CHEMISTRY METHOD 11/08/2024 1:32 PM EDT [facility] Non HDL Chol. (LDL+VLDL) 125 <145 mg/dL LAB CHEMISTRY METHOD 11/08/2024 1:32 PM EDT [facility] Chol/HDL Ratio 3.6 0.0 - 4.4 LAB CHEMISTRY METHOD 11/08/2024 1:32 PM EDT [facility] Blood Venous blood specimen / Unknown Venipuncture / Unknown 11/08/2024 11:44 AM EDT 11/08/2024 12:37 PM EDT us Nicolás Medina NP LAB BLOOD ORDERABLES Final Resul t [facility] [address] [place] [address], [place] [phone] * LG IFA with titer and pattern (11/08/2024 11:44 AM EDT) [facility] LG Negative Negative 11/09/2024 2:53 PM EDT [facility] Blood Venous blood specimen / Unknown Venipuncture / Unknown 11/08/2024 11:44 AM EDT 11/08/2024 12:37 PM EDT us Sheripatricia Carol BARON LAB BLOOD ORDERABLES Final Resul t [facility] [address] [place] [address], * CBC auto differential (11/08/2024 11:44 AM EDT) [facility] WBC 6.6 4.8 - 10.8 K/mcL LAB HEMETOLOGY METHOD 11/08/2024 12:47 PM EDT [facility] RBC 4.10 3.80 - 4.80 M/[facility] LAB HEMETOLOGY METHOD 11/08/2024 12:47 PM EDT [facility] Hemoglobin 12.6 11.5 - 16.0 g/dL LAB HEMETOLOGY METHOD 11/08/2024 12:47 PM EDT [facility] Hematocrit 37.3 35.0 - 47.0 % LAB HEMETOLOGY METHOD 11/08/2024 12:47 PM EDT [facility] MCV 92.1 79.0 - 98.0 FL LAB HEMETOLOGY METHOD 11/08/2024 12:47 PM EDT [facility] MCH 31.1 27.0 - 32.0 pcg LAB HEMETOLOGY METHOD 11/08/2024 12:47 PM EDT [facility] MCHC 33.8 32.0 - 37.0 g/dL LAB HEMETOLOGY METHOD 11/08/2024 12:47 PM EDT [facility] RDW 13.0 11.0 - 15.0 % LAB HEMETOLOGY METHOD 11/08/2024 12:47 PM EDT [facility] Platelets 289 130 - 400 K/mcL LAB HEMETOLOGY METHOD 11/08/2024 12:[address] [facility] MPV 11.0 7.0 - 11.0 FL LAB HEMETOLOGY METHOD 11/08/2024 12:[address] [facility] NRBC 0.0 <1.0 % LAB HEMETOLOGY METHOD 11/08/2024 12:[address] [facility] NRBC Absolute 0.00 <0.10 K/mcL LAB HEMETOLOGY METHOD 11/08/2024 12:[address] [facility] Neutrophils Relative 47.0 % LAB HEMETOLOGY METHOD 11/08/2024 12:[address] [facility] Lymphocytes Relative 40.5 % LAB HEMETOLOGY METHOD 11/08/2024 12:[address] [facility] Monocytes Relative 7.8 % LAB HEMETOLOGY METHOD 11/08/2024 12:[address] [facility] Eosinophils Relative 3.6 % LAB HEMETOLOGY METHOD 11/08/2024 12:[address] [facility] Basophils Relative 0.9 % LAB HEMETOLOGY METHOD 11/08/2024 12:[address] [facility] Immature Granulocytes Relative 0.2 % LAB HEMETOLOGY METHOD 11/08/2024 12:[address] [facility] Neutrophils Absolute 3.12 1.50 - 7.00 K/mcL LAB HEMETOLOGY METHOD 11/08/2024 12:[address] [facility] Lymphocytes Absolute 2.69 1.00 - 5.00 K/mcL LAB HEMETOLOGY METHOD 11/08/2024 12:[address] [facility] Monocytes Absolute 0.52 0.20 - 1.00 K/mcL LAB HEMETOLOGY METHOD 11/08/2024 12:47 PM EDT [facility] Eosinophils Absolute 0.24 0.00 - 0.50 K/[facility] LAB HEMETOLOGY METHOD 11/08/2024 12:47 PM EDT [facility] Basophils Absolute 0.06 0.00 - 0.20 K/[facility] LAB HEMETOLOGY METHOD 11/08/2024 12:47 PM EDT [facility] Immature Granulocytes Absolute 0.01 0.00 - 0.03 K/[facility] LAB HEMETOLOGY METHOD 11/08/2024 12:47 PM EDT [facility] Blood Venous blood specimen / Unknown Venipuncture / Unknown 11/08/2024 11:44 AM EDT 11/08/2024 12:38 PM EDT Nicolás Medina NP LAB BLOOD ORDERABLES Final Resul t Performing Organization Address City/[facility]/ZIP Co de Phone Number [facility] [address] [place] [address], [place] [phone] * Uric acid (11/08/2024 11:44 AM EDT) [facility] Uric Acid 4.1 3.1 - 7.8 mg/dL LAB CHEMISTRY METHOD 11/08/2024 1:32 PM EDT [facility] Blood Venous blood specimen / Unknown Venipuncture / Unknown 11/08/2024 11:44 AM EDT 11/08/2024 12:37 PM EDT Nicolás Medina NP LAB BLOOD ORDERABLES Final Resul t [facility] [address] [place] [address], [place] [phone] * Hemoglobin A1c (11/08/2024 11:44 AM EDT) Pathologist [facility] Hemoglobin A1C 6.2 <6.5 % LAB CHEMISTRY METHOD 11/08/2024 1:44 PM EDT [facility] Mean Bld Glu Estim. 131 mg/dL LAB CHEMISTRY METHOD 11/08/2024 1:44 PM EDT [facility] Blood Venous blood specimen / Unknown Venipuncture / Unknown 11/08/2024 11:44 AM EDT 11/08/2024 12:38 PM EDT us Nicolás Medina OIL BURNER INSTALLER LAB BLOOD ORDERABLES Final Resul t [facility] [address] [place] [address], [place] [phone] * XR Knee 4+ Views Left (11/08/2024 11:41 AM EDT) Anatomical Region Laterality Modality Lower Extremities, Knee Left Radiogra phic Imaging 11/08/2024 12:1 0 PM EDT Impressions 11/08/2024 12:11 PM EDT No acute findings. There is evidence of very mild osteoarthritis at the medial compartment of the femoral-tibial joint space. Code 13591 -------- FINAL REPORT -------- Dictated By: Catracho Collier Dictated Date: 11/08/2024 12:10 ET Assigned Physician: Catracho Collier Reviewed and Electronically Signed By: Catracho Collier Signed Date: 11/08/2024 12:11 ET Workstation ID: [id number] Transcribed By: Self Edit Transcribed Date: 11/08/2024 12:10 ET Narrative 11/08/2024 12:11 PM EDT HISTORY: The patient is a 54-year-old female with pain at the lateral aspect of the left knee. No history of trauma is provided. FINDINGS: AP, lateral, internal rotation, and external rotation views of the left knee are obtained. The study demonstrates no fracture or dislocation. There is mild narrowing of the medial compartment of the femoral-tibial joint space and small osteophytes arise from the medial tibial plateau and medial femoral condyle, consistent with very mild osteoarthritis. No joint effusion is seen. Procedure Note Catracho Collier MD - 11/08/2024 HISTORY: The patient is a 54-year-old female with pain at the lateralaspect of the left knee. No history of trauma is provided. FINDINGS: AP, lateral, internal rotation, and external rotation views ofthe left knee are obtained. The study demonstrates no fracture ordislocation. There is mild narrowing of the medial compartment of thefemoral-tibial joint space and small osteophytes arise from the medialtibial plateau and medial femoral condyle, consistent with very mildosteoarthritis. No joint effusion is seen. IMPRESSION: No acute findings. There is evidence of very mild osteoarthritis at themedial compartment of the femoral-tibial joint space. Code 69346 -------- FINAL REPORT -------- Dictated By: Catracho Collier Dictated Date: 11/08/2024 12:10 ET Assigned Physician: Catracho Collier Reviewed and Electronically Signed By: Catracho Collier Signed Date: 11/08/2024 12:11 ET Workstation ID: [id number] Transcribed By: Self Edit Transcribed Date: 11/08/2024 12:10 ET Wyatt Lucas MD IMG XR PROCEDURES Final Result * External Colonoscopy Report (05/19/2024) Anatomical Region Laterality Modality Endoscopy us Provider [facility]~PROCEDURE ORDERABLES Final Result * (ABNORMAL) Comprehensive metabolic panel (05/03/2024 12:10 PM EST) Sodium 142 133 - 145 mmol/L LAB CHEMISTRY METHOD 05/03/2024 4:39 PM EST [facility] Potassium 4.1 3.5 - 5.5 mmol/L LAB CHEMISTRY METHOD 05/03/2024 4:39 PM EST [facility] Chloride 108 96 - 110 mmol/L LAB CHEMISTRY METHOD 05/03/2024 4:39 PM EST [facility] CO2 27 21 - 32 mmol/L LAB CHEMISTRY METHOD 05/03/2024 4:39 PM EST [facility] Anion Gap 7 3 - 11 LAB CHEMISTRY METHOD 05/03/2024 4:39 PM [facility] Glucose 112(H) 70 - 100 mg/dL LAB CHEMISTRY METHOD 05/03/2024 4:39 PM [facility] BUN 14 5 - 25 mg/dL LAB CHEMISTRY METHOD 05/03/2024 4:39 PM [facility] Creatinine 0.67 0.50 - 1.10 mg/dL LAB CHEMISTRY METHOD 05/03/2024 4:39 PM [facility] eGFR 105 >=60 mL/min/1. 73m2 LAB CHEMISTRY METHOD 05/03/2024 4:39 PM [facility] Comment:Calculation based on the Chronic Kidney Disease Epidemiology Collaboration (CKD-EPI) equation refit without adjustment for race. BUN/Creatinine Ratio 20.9 LAB CHEMISTRY METHOD 05/03/2024 4:39 PM [facility] Calcium 9.7 8.5 - 10.5 mg/dL LAB CHEMISTRY METHOD 05/03/2024 4:39 PM [facility] AST (SGOT) 19 10 - 42 unit/L LAB CHEMISTRY METHOD 05/03/2024 4:39 PM [facility] ALT (SGPT) 32 10 - 60 unit/L LAB CHEMISTRY METHOD 05/03/2024 4:39 PM [facility] Alkaline Phosphatase 116 42 - 121 unit/L LAB CHEMISTRY METHOD 05/03/2024 4:39 PM [facility] Total Protein 7.1 6.0 - 8.0 g/dL LAB CHEMISTRY METHOD 05/03/2024 4:39 PM [facility] Albumin 4.0 3.2 - 5.0 g/dL LAB CHEMISTRY METHOD 05/03/2024 4:39 PM [facility] Total Bilirubin 0.3 0.0 - 1.4 mg/dL LAB CHEMISTRY METHOD 05/03/2024 4:39 PM [facility] Blood Venous blood specimen / Unknown Venipuncture / Unknown 05/03/2024 12:10 PM EST 05/03/2024 12:10 PM EST Ericka Contreras MD LAB BLOOD ORDERABLES Final Res ult [facility] [address] [place] [address], * Mammography (02/01/2024) Mammogram abstract [facility] / Anatomical Region Laterality Modality Other Historical Provider HEALTH MAINTENANCE Final Result * Depression Screening (01/29/2024) Depression Screening Abstracted Historical Provider HEALTH MAINTENANCE Final Result * Hepatitis C Screening (03/18/2022) Hepatitis C Screening Abstracted Historical Provider HEALTH MAINTENANCE Final Result from Last 3 Months or Most Recently Relevant to Health Maintenance Insurance [facility] MEDICAID - [place] Care Teams Spring Machine Operator Relationship Specialty Start Date End Date Ericka Contreras MD [address] [place] [phone] PCP - General Internal Medicine 03/30/24
--- OUTSIDE RECORDS SUMMARY | 2025-02-06 20:46 | XMS_ITS | Clinical Summary ---
Author Organization [facility] Address [address] [place] [place] [address] [address] Phone Care Team Providers Care Code And Test Clerk Name Role Phone Ericka Contreras MD Primary Care Provider [phone] Allergies No known active allergies Medications valACYclovir [...] times a day. APPLY TO AFFECTED AREA Active eletriptan (RELPAX) 40 MG tablet Take 1 tablet by mouth every morning. As needed 5 Active cetirizine (ZYRTEC) 5 MG tablet Take 5 mg by mouth daily. Active celecoxib (CELEBREX) 200 MG capsule Take 2 capsules (400 mg total) by mouth daily. 180 capsule 3 5 08/31/19 26 Active Social History Tobacco Use Types Packs/Day Years [...] 02/13/2021, 01/25/2020, Additional history exists COVID-19 VACCINE ( season) 2025 10/14/2020, 09/23/2020 Adult Td,Tdap Booster 08/18/2026 08/18/2016 LIPID PANEL 05/03/2029 05/03/2024 COLONOSCOPY 10/20/2034 10/20/2024, 0412/2024, 09/09/2024, Additional history exists COLORECTAL CANCER SCREENING [...] 1970 Admit Type: Outpatient Age: 54 Room: [place] [address] Gender: Female Note Status: Finalized Attending MD: [...] performed the entire procedure. Ricardo Flowers MD, [id number] 10/20/2024 11:33:32 AM The attending physician was present throughout the entire procedure. Number of Addenda: 0 Note Initiated On: 10/20/2024 10:30 AM [facility] Ernestine Contreras MD GI PROCEDURE ORDERABLES Fin al Result from Last 3 Months or Most Recently Relevant to Health Maintenance Insurance [facility] E[facility] PPO EPO [facility] PPO EPO Care Teams Code And Test Clerk Relationship Specialty Start Date End Date Ericka Contreras MD [address] [phone] PCP - General Internal Medicine 06/03/24 Additional Source Comments The information contained in this document represents components of the legal health record. It is not the complete legal health record.[facility]
--- OUTSIDE RECORDS SUMMARY | 2025-02-06 20:47 | XMS_ITS | Encounter Summary ---
Author Organization [facility] Address [address] [employer] [facility] [address] [place] [address] Phone Care Team Providers Care Non Destructive Evaluation Manager Name Role Phone Ericka Contreras MD Primary Care Provider [phone] Encounter Details Date Type Department Care Team (Late st Contact Info) Description 10/20/2024 Procedure Pass [facility] KIKE [address] [facility], 4th [place] [address] Social History Tobacco Use Types Packs/Day Years [...] on filedocumented in this encounter Care Teams Non Destructive Evaluation Manager Relationship Specialty Start Date End Date Ericka Contreras MD [address] [place] [address] [address] [place] [address] PCP - General Internal Medicine 06/03/24 documented as of this encounter Additional Source Comments The information contained in this document represents components of the legal health record. It is not the complete legal health record.[facility]
== END 2025-02-06 15:56 | disposition home or self-care (01) ==
LOC: HO.HWS 15:20
PROVIDERS: PCP Internal Medicine; Visit Provider Obstetrics & Gynecology
DX: Z01.419 Encounter for gynecological examination (general) (routine) without abnormal findings (principal); N95.0 Postmenopausal bleeding
CPT/HCPCS: 99396; 99459

== ENCOUNTER 2025-02-06 16:00 | Outpatient (REF) | payer BC, MEDICAID, SELFPAY ==
--- NOTE | ~2025-02-06 | MM_ITS ---
EXAMINATION: MM SCREENING DIGITAL BREAST TOMOSYNTHESIS, BILATERAL CLINICAL INFORMATION: Screening. Asymptomatic. COMPARISON: Comparison made to multiple prior, most recent February 01, 2024, and most remote April 24, 2020. TECHNIQUE: Digital breast tomosynthesis is performed in mediolateral oblique and craniocaudal views along with computer-aided detection (CAD). Synthesized 2D images are generated from the tomosynthesis. FINDINGS: BREAST COMPOSITION: There are scattered areas of fibroglandular density (ACR BI-RADS breast composition Category b). BILATERAL BREASTS: No significant masses, suspicious calcifications or other abnormalities are seen in either breast. MM/MM tomosynthesis screening BI IMPRESSION: BILATERAL BREASTS: Negative, no mammographic evidence of malignancy. Normal interval follow-up is recommended in 12 months. ASSESSMENT: BI-RADS 1 - Negative RECOMMENDATION: Routine annual mammography screening. FOLLOW-UP: 1 year F/U This examination should not preclude the clinical evaluation of a suspicious palpable abnormality. This patient's information was entered into a reminder system with a target due date for their next mammogram. Electronically signed by: Annie Ortega MD 02/07/2025 06:47 PM EDT
== END 2025-02-06 16:01 | disposition home or self-care (01) ==
LOC: HO.MAMMO 16:00
PROVIDERS: Visit Provider Internal Medicine
DX: Z12.31 Encounter for screening mammogram for malignant neoplasm of breast (principal)
CPT/HCPCS: 77063; 77067

== ENCOUNTER → 2025-02-06 16:00 | Outpatient (BNV) | payer BC, MEDICAID, SELFPAY | PROVIDERS: Visit Provider Radiology Body Imaging | DX: Z12.31 Encounter for screening mammogram for malignant neoplasm of breast (principal) | CPT/HCPCS: 77063; 77067 ==

== ENCOUNTER 2025-03-20 15:21 | Outpatient (AMB) | payer BC, MEDICAID, SELFPAY ==
--- NOTE | 2025-03-20 15:22 | A.OFFVIS_ITS ---
Intake Visit Reasons: 6m HERRERA Allergies No Known Allergies Allergy (Verified 03/20/25 15:26) Medication List - Last Reconciled 03/20/25 by Joann Mims CNP amitriptyline 10 mg PO BEDTIME aspirin (Adult Aspirin Regimen) 81 mg PO DAILY bisacodyl (Dulcolax (bisacodyl)) 10 mg (2 x 5 mg) PO BEDTIME cholecalciferol (vitamin D3) 50 mcg PO DAILY docusate sodium 100 mg PO BID eletriptan 40 mg PO DAILY PRN famotidine (Pepcid) 20 mg PO BID labetalol 100 mg PO BID levothyroxine 100 mcg PO DAILY medroxyprogesterone (Provera) 10 mg PO DAILY 10 days meloxicam 7.5 mg PO DAILY metformin 500 mg PO DAILY nystatin 1 appl topical DAILY polyethylene glycol 3350 (Miralax) 17 grams PO DAILY tirzepatide (weight loss) (Zepbound) mg subcut tizanidine 4 mg PO BEDTIME topiramate 100 mg PO DAILY valacyclovir (Valtrex) 500 mg PO DAILY HPI Comments Details: She was doing okay. Headaches were better. She had few migraines this summer while in [place] that were relieved by eletriptan. Migraines may be triggered by heat, humidity, and stress. On Zepbound for weight loss. Sleep was okay. Home- schooling 8-year-old high functioning autistic son. She had son at 8 months in 08/2016 when she was 45. was complicated by preeclampsia at the end and low platelets, needed emergency . Has underactive thyroid. Has had bad headaches since her 20s. Gets headache several days a week. If she does not control it, it goes into a migraine about 3- 4x/month with bifrontal and bioccipital pressure-type pain, photophobia, and nausea. More frequently, she has daily pressure-type headaches. Gets about 7-8 hours of sleep at night. Family history is not known because she was adopted. No triggers have been identified. She does not get an aura. [facility] Medical History Adenomatous duodenal polyp Gastric polyposis Sleep apnea Attenuated familial adenomatous polyposis Tubular adenoma Hx of migraines Herpes simplex Hypothyroidism (acquired) Constipation Hyperlipidemia Kuldip's thyroiditis Surgical History Hx of dilation and curettage H/O LEEP History of tonsillectomy History of endoscopy Hx of colonoscopy Hx of section Social History Are you a primary career services representative to a significant other at home: No Do you presently have visiting nurse or other home services: No Alcohol intake: current Alcohol intake frequency: holidays/special occasions only Alcohol type: wine Patient Tobacco Use Status: Never used Tobacco Sexual orientation: Straight/Heterosexual Gender identity: Female Female Reproductive History Menstrual Age of Menarche: 14 Review of Systems Const Denies chills, Denies daytime sleepiness, Denies difficulty sleeping, Denies fatigue, Denies fever(s), Denies frequent falls, Reports headache(s), Denies increased appetite, Denies poor appetite, Denies snoring, Denies weakness, Denies weight gain and Denies weight loss Eyes Denies loss of vision ENT Denies vertigo, Denies dizziness, Reports headache(s) and Denies neck pain Card Denies chest pain at rest, Denies chest pain with activity, Denies syncope, Denies leg edema, Denies palpitations, Denies dyspnea and Denies dyspnea on exertion Resp Denies cough, Denies dyspnea, Denies dyspnea on exertion and Denies snoring GI Denies abdominal pain, Denies constipation, Denies heartburn, Denies diarrhea and Denies nausea Denies urinary frequency, Denies urinary incontinence and Denies urinary urgency Musc Denies abnormal gait, Denies back pain, Denies myalgias, Denies arthralgias, Denies neck pain, Denies numbness and Denies tingling Neuro Denies abnormal gait, Denies vertigo, Denies dizziness, Denies syncope, Denies frequent falls, Reports headache(s), Denies lack of coordination, Denies loss of vision, Denies memory loss, Denies numbness, Denies Other visual disturbances, Denies restless legs, Denies seizure-like activity, Denies tingling, Denies paresthesias, Denies tremor(s) and Denies weakness Psych Denies anxiety, Denies depression, Denies auditory hallucinations, Denies memory loss and Denies visual hallucinations Endo Denies fatigue and Denies palpitations Physical Exam Const Other: General Appearance:? normal, in no acute distress. Heart:? S1, S2 normal, no murmurs. Lungs:? clear anteriorly and posteriorly. Musculoskeletal:? normal. Extremities:? no edema. Psych:? alert, oriented, cognitive function intact, cooperative with exam. Neuro Other: Abnormal Neurological Findings:?none.? Mental Status: alert and oriented X 3. Normal attention, orientation, memory, and affect. Cranial Nerves: Pupils are equal, round, and reactive to light. External ocular muscles are intact. Visual doe are full, no ptosis. Face is symmetrical, no facial weakness or droop. Facial sensations are normal. Tongue protrudes in midline. Palate elevates symmetrically. Shoulder shrugging is normal Motor Examination: Normal muscle tone, bulk and strength. No atrophy or fasciculations. No drift of the extended upper extremities. DTR 2+. Plantars are flexor. Sensory Exam: Normal light touch, temperature, pinprick, vibration, and joint- position sensations. Rhomberg sign is absent. Coordination: No ataxia. No titubation. Gait Exam: Within normal limits. Cerebellar Signs: [id number] is okay. Extrapyramidal System: No tremor, rigidity with normal facial expressions. No bradykinesia. No bradyphrenia. Normal arm swing and posture. No propulsion or retropulsion. Speech: Normal. Assessment & Plan Assessment & Plan (1) Migraine: Code(s): G43.909 - Migraine, unspecified, not intractable, without status migrainosus Category: Medical Qualifiers: Migraine type: unspecified Status migrainosus presence: without status migrainosus Intractability: not intractable Qualified Code(s): G43.909 - Migraine, unspecified, not intractable, without status migrainosus Plan: Continue topiramate 100mg 1 tablet at bedtime. Continue eletriptan 40mg 1 tablet as needed for migraines. (2) Tension headache: Code(s): G44.209 - Tension-type headache, unspecified, not intractable Category: Medical Plan: Continue amitriptyline 10mg 1 tablet at bedtime. Medications: New eletriptan take 1 tab at onset of headache; if no relief, may repeat 1 tab after at least 2 hrs; max = 2 tabs/24 hrs PO 10 tabs 5RF 30 days Changed From amitriptyline 10 mg PO BEDTIME To amitriptyline 10 mg PO BEDTIME 90 tabs 1RF 90 days From topiramate 100 mg PO DAILY To topiramate 100 mg PO DAILY 90 tabs 1RF 90 days Discontinued eletriptan Discontinued Reason: Order 40 mg PO DAILY PRN Migraine Headache Coding Level of Care Code Est Pt Level 4 (87730) Diagnoses Migraine without status migrainosus, not intractable, unspecified migraine type G43.909 Migraine type: unspecified Status migrainosus presence: without status migrainosus Intractability: not intractable Tension headache G44.209
--- OUTSIDE RECORDS SUMMARY | 2025-03-20 18:37 | XMS_ITS | Encounter Summary ---
Author Organization [facility] Address [address] [place] [address] Care Team Providers Care Renal Medicine Specialist Name Role Phone Ericka Contreras MD Primary Care Provider Reason for Visit * Reason Onset Date Comments Med Refill 03/17/2025 Zepbound 15 mg Encounter Details Date Type Department Care Team ([facility] st Contact Info) Description 03/17/2025 Telephone Bariatric Surgery - [address] [place] [address] Kenny Cr MD [address] [place] [phone] Social History Tobacco Use Types Packs/Day Years [...] care for your loved ones. For example, child care center administrator or elderly care for an older adult? [...] Date Recorded What is your living situation? Unrecognized valu e 09/27/2024 Comments Unknown Sex and Gender Information Value Date Recorded Sex Assigned at Female 05/19/2024 3:48 PM EST Legal Sex Female 12:36 PM EST Gender Identity Female 05/19/2024 3:48 PM EST Sexual Orientation Straight 05/19/2024 3: 48 PM EST documented as of this encounter Progress Notes * Shawna Garcia - 03/17/2025 11:20 AM EDT Patient expressed concern about her current weight management, stating she is worried she will onlymaintain her weight without further loss. She is requesting the addition of an oral medication to complement her current treatment with Zepbound, if clinically appropriate. * Shawna Garcia - 03/17/2025 11:20 AM EDT Patient did well on Zepbound 15 mgs and would like a refill. If appropriate, please send script for Zepbound 15 mgs to their pharmacy. The patient does have a follow up in 05/31/2025 documented in this encounter Plan of Treatment Upcoming Encounters Date Type Department Care Team (Late st Contact Info) Description 04/13/2025 3:15 PM EST Office Visit Orthopedic Surgery - [place] [address] [facility] [address] [place] [phone] Severino Sidhu DPM [address] [place] [phone] 05/31/2025 3:00 PM EST Telemedicine Bariatric Surgery - [place] [address] [phone] [phone] 08/02/2025 3:30 PM EDT Office Visit Internal Medicine [facility] [address] [phone] Nicolás Medina, TOD [address] [address] 08/22/2025 3:00 PM EDT Office Visit Bariatric Surgery - [place] [address] [phone] Shyla Singh PA [address] [place] [phone] documented as of this encounter Visit Diagnoses Not on filedocumented in this encounter Additional Health Concerns Assessment Noted Time PHQ-9 Depression Total Score: 0 09/28/19 25 6:15 PM EDT documented as of this encounter Care Teams Renal Medicine Specialist Relationship Specialty Start Date End Date Ericka Contreras MD [address] [phone] PCP - General Internal Medicine 03/30/24 documented as of this encounter
--- OUTSIDE RECORDS SUMMARY | 2025-03-20 18:37 | XMS_ITS | Clinical Summary ---
Author Organization [facility] Address [address] [facility] [address] [address] Phone Care Team Providers Care Doctor Osteopathic Name Role Phone Ericka Contreras MD Primary Care Provider [phone] Allergies No known active allergies Medications valACYclovir [...] 01/25/2020, Additional history exists COVID-19 VACCINE ( - 2024- season) 2025 10/14/2020, 09/23/2020 Adult Td,Tdap Booster 08/18/2026 08/18/2016 LIPID PANEL 05/03/2029 05/03/2024 COLONOSCOPY 10/20/2034 10/20/2024, 04/12/2024, 09/09/2024, Additional history exists COLORECTAL CANCER SCREENING 10/20/2034 RSV VACCINE (1 - 1-dose 75+ series) 09/30/2046 SMOKING STATUS SCREENING (Once After 26 Yrs) [...] 1970 Admit Type: Outpatient Age: 54 Room: [place] [address] Gender: Female Note Status: Finalized Attending MD: [...] performed the entire procedure. Ricardo Flowers MD, [id number] 10/20/2024 11:33:32 AM The attending physician was present throughout the entire procedure. Number of Addenda: 0 Note Initiated On: 10/20/2024 10:30 AM [facility] Ernestine Contreras MD GI PROCEDURE ORDERABLES Fin al Result from Last 3 Months or Most Recently Relevant to Health Maintenance Insurance [facility] EPO [facility] PPO EPO [facility] PPO EPO [facility] [address] [address] [place], [place] [address] PPO EPO Care Teams Doctor Osteopathic Relationship Specialty Start Date End Date Ericka Contreras MD [address] [phone] PCP - General Internal Medicine 06/03/24 Additional Source Comments The information contained in this document represents components of the legal health record. It is not the complete legal health record.[facility]
--- OUTSIDE RECORDS SUMMARY | 2025-03-20 18:37 | XMS_ITS | Clinical Summary ---
Author Organization 175 [facility] Address 175 [place] [address] Phone Care Team Providers Care Political Theory Professor Name Role Phone Ericka Contreras MD Primary Care Provider [phone] Allergies No known active allergies Medications blood [...] 08/31/19 25 Active valACYclovir (VALTREX) 500 mg tabletIndicatio ns:Herpesviral infection, unspecified Take 1 tablet (500 mg total) by mouth 1 (one) time each day. 90 tablet 1 09/29/19 25 Active labetaloL (NORMODYNE) 100 mg tabletIndicatio ns:HTN (hypertension), benign Take 1 tablet (100 mg total) by mouth 2 (two) times a day. 180 tablet 1 09/29/19 25 Active docusate sodium (COLACE) 100 mg capsuleIndicati ons:Constipatio n, unspecified constipation type Take 1 capsule (100 [...] 09/29/19 25 Active amLODIPine (NORVASC) 2.5 mg tabletIndicatio ns:HTN (hypertension), benign Take 1 tablet (2.5 mg total) by mouth 1 (one) time each day. 90 tablet 3 09/29/19 25 Active nystatin (MYCOSTATIN) 100,000 unit/gram powderIndicatio ns:Intertrigo Apply topically 2 (two) times a day. 60 g 1 09/29/19 25 Active cholecalciferol (Vitamin D3) 50 mcg (2,000 unit) tabletIndicatio ns:Vitamin D deficiency Take 1 tablet (2,000 Units total) by mouth 1 (one) time each day. 90 tablet 2 09/29/19 25 Active SUMAtriptan (IMITREX) 25 mg tablet Take 1 tablet (25 mg total) by mouth 1 (one) time if needed for migraine. 9 tablet 5 11/22/19 25 2024 Active cephalexin (KEFLEX) 500 mg capsuleIndicati ons:Pain in toes of both feet TAKE 1 CAPSULE BY MOUTH TWICE A DAY FOR 7 DAYS 14 capsule 01/13/20 25 Active ammonium lactate (AmLactin) 12 % lotion Apply topically if needed for dry skin. 400 g 02/24/20 25 2025 Active nitroglycerin in white petrolatum ointment Apply 1 Application topically 1 (one) time each day if needed (spasm of digit). 1 each 3 02/24/20 25 2024 Active tirzepatide, weight loss, (Zepbound) 15 mg/0.5 mL injection Inject 0.5 mL (15 mg total) under the skin every 7 (seven) days. 2 mL 03/17/20 25 2024 Active tirzepatide, weight loss, (Zepbound) 12.5 mg/0.5 mL injection Inject 0.5 mL (12.5 mg total) under the skin every 7 (seven) days for 28 days. 2 mL 01/26/20 25 2024 Discontinued tirzepatide, weight loss, (Zepbound) 15 mg/0.5 mL injection Inject 0.5 mL (15 mg total) under the skin every 7 (seven) days. 2 mL 02/22/20 25 2024 Discontinued(R eorder) Active Problems Problem Noted Date Diagnosed Date Overweight (BMI 25.0-29.9) 02/24/2025 Colon polyps 09/29/2024 Class 2 severe obesity with serious comorbidity and body mass index (BMI) of 36.0 to 36.9 in adult 04/01/2024 Migraine without aura and [...] Encounters Date Type Department Care Team Description 03/17/2025 Telephone Bariatric Surgery [address] [phone] Kenny Cr MD 02/24/2025 12:30 PM EDT Telemedicine Bariatric Surgery [address] [phone] Overweight (BMI 25.0-29.9) (Primary Dx) 02/23/2025 3:00 PM EDT Office Visit Orthopedic Surgery - [place] [address] [phone] Severino Sidhu, DPM Raynaud's disease without gangrene (Primary Dx); Pectus excavatum, macrocephaly, short stature, and dysplastic nails syndrome 02/20/2025 Telephone Bariatric Surgery [address] [phone] Kenny Cr MD 01/30/2025 3:30 PM EDT Office Visit Internal Medicine - [address] [phone] Nicolás Medina NP Pain in toes of both feet (Primary Dx); Anxiety and depression; Raynaud's disease without gangrene; Herpes simplex type 1 infection; Hypothyroidism, unspecified type; BAHMAN (obstructive sleep apnea); BMI 30.0-30.9,adult; Primary hypertension; Vitamin D deficiency; Chronic idiopathic constipation; Prediabetes 01/24/2025 Telephone Bariatric Surgery [address] [phone] Shyla Singh PA 12/28/2024 Telephone Bariatric Surgery - [place] 175 [facility] [address] [place] [phone] Shyla Singh PA 12/21/2024 Telephone Bariatric Surgery - [place] 175 [facility] [address] [place] [address] Shyla Singh PA from Last 3 Months Immunizations Immunization Administration Dates Next Due Influenza Quadravalent, MDCK , 0.5ml, preservative free (Flucelvax) 6mo and older 03/18/2022,03/14/2019 Surgical History Surgery Date Site/Laterality Comments OTHER SURGICAL HISTORY PROCEDURE: HISTORY OTHER; COMMENT: cervical cryosurgery TONSILLECTOMY PROCEDURE: HISTORICAL TONSILLECTOMY SECTION PROCEDURE: [place] DELIVERY ONLY Medical History Medical History Date [...] for your loved ones. For example, child welfare worker or elderly care for an older adult? [...] EDT Inhaled Oxygen Concentration - - Weight 83.9 kg (185 lb) 02/24/2025 12:00 PM EDT Height 167.6 cm (5' 6 ) 01/30/2025 3:47 PM EDT Body Mass Index 29.86 01/30/2025 3:47 PM EDT Plan of Treatment Upcoming Encounters Date Type Department Care Team (Late st Contact Info) Description 04/13/2025 3:15 PM EST Office Visit Orthopedic Surgery - [place] 250 175 [facility] 250 [place] [phone] Severino Sidhu DPM [address] [place] [phone] 05/31/2025 3:00 PM EST Telemedicine Bariatric Surgery [facility] [address] [phone] Darlene Ball, AMIRAH [address] [phone] 08/02/2025 3:30 PM EDT Office Visit Internal Medicine [facility] 175 [facility] 200 [place] [phone] Nicolás Medina, TOD 175 [facility] 200 [place] [address] 08/22/2025 3:00 PM EDT Office Visit Bariatric Surgery - [place] [address] [phone] Shyla Singh PA [address] [place] [phone] Health Maintenance Due Date Last Done Comments Hepatitis B Vaccines (1 of 3 - 19+ 3-dose series) 09/30/1990 Cervical Cancer Screening: Pap Smear 09/30/1992 Pneumococcal Vaccine: 50+ Years (1 of 1 - PCV) 09/30/2021 RSV Immunization Adult Patients (1 - Risk 50-74 years 1-dose series) 09/30/2021 Zoster Vaccines (1 of 2) 09/30/2021 HIV Screening 05/03/2022 COVID-19 Vaccine (3 - season) 2025 10/14/2020, 09/23/2020 Influenza Vaccine (#1) 2025 2, 02/13/2021, 01/25/2020, Additional history exists Hypertension/CHF/CAD Annual [...] Procedure Name Priority Date/Time Associated Diagnosis Comments LIPID PANEL WITH REFLEX TO DIRECT LDL Routine 11/08/2024 11:44 AM EDT Hyperlipemia, mixed EXTERNAL COLONOSCOPY REPORT 05/19/2024 COMPREHENSIVE METABOLIC PANEL [...] LAB CHEMISTRY METHOD 11/08/2024 1:32 PM EDT [facility] Triglycerides 91 0 - 150 mg/dL LAB CHEMISTRY METHOD 11/08/2024 1:32 PM EDT [facility] HDL 48 >=40 mg/dL LAB CHEMISTRY METHOD 11/08/2024 1:32 PM EDT [facility] LDL Calculated 107(H) 0 - 100 mg/dL LAB CHEMISTRY METHOD 11/08/2024 1:32 PM EDT [facility] VLDL Cholesterol Robinson 18.2 mg/dL LAB CHEMISTRY METHOD 11/08/2024 1:32 PM EDT [facility] Non HDL Chol. (LDL+VLDL) 125 <145 mg/dL LAB CHEMISTRY METHOD 11/08/2024 1:32 PM EDT [facility] Chol/HDL Ratio 3.6 0.0 - 4.4 LAB CHEMISTRY METHOD 11/08/2024 1:32 PM T [facility] Blood Venous blood specimen / Unknown Venipuncture / Unknown 11/08/2024 11:44 AM EDT 11/08/2024 12:37 PM EDT us Tanzeem Alam NEON SIGN SERVICER LAB BLOOD ORDERABLES Final Resul t [facility] [address] [place] [address], [place] [phone] * External Colonoscopy Report (05/19/2024) Anatomical Region [...] [facility] Comment:Calculation based on the Chronic Kidney Disease Epidemiology Collaboration (CKD-EPI) equation refit without adjustment for race. BUN/Creatinine Ratio 20.9 LAB CHEMISTRY METHOD 05/03/2024 4:39 PM [facility] Calcium 9.7 8.5 - 10.5 mg/dL LAB CHEMISTRY METHOD 05/03/2024 4:39 PM [facility] AST (SGOT) 19 [...] MD LAB BLOOD ORDERABLES Final Res ult [facility] [address] [place] [address], * Mammography (02/01/2024) Mammogram abstract [facility] / Anatomical Region Laterality Modality Other Historical Provider HEALTH MAINTENANCE Final Result * Depression Screening (01/29/2024) Depression Screening Abstracted Historical Provider HEALTH MAINTENANCE Final Result * Hepatitis C Screening (03/18/2022) Hepatitis C Screening Abstracted us Historical Provider HEALTH MAINTENANCE Final Result from Last 3 Months or Most Recently Relevant to Health Maintenance Insurance [facility] MEDICAID - [place] Care Teams Political Theory Professor Relationship Specialty Start Date End Date Ericka Contreras MD 175 [facility] [address] [place] [address] PCP - General Internal Medicine 03/30/24
--- OUTSIDE RECORDS SUMMARY | 2025-03-20 18:37 | XMS_ITS | Encounter Summary ---
Author Organization [facility] Address [address] [facility] [facility] [address] [place] [address] Phone Care Team Providers Care Graphite Mill Operator Name Role Phone Ericka Contreras MD Primary Care Provider [phone] Encounter Details Date Type Department Care Team (Late st Contact Info) Description 10/20/2024 Procedure Pass [facility] KIKE 4 ENDO DEPT 55 [facility], 4th [place] [address] Social History Tobacco Use Types Packs/Day Years [...] on filedocumented in this encounter Care Teams Graphite Mill Operator Relationship Specialty Start Date End Date Ericka Contreras MD [address] [place] [address] [address] [place] [phone] PCP - General Internal Medicine 06/03/24 documented as of this encounter Additional Source Comments The information contained in this document represents components of the legal health record. It is not the complete legal health record.[facility]
== END 2025-03-20 15:55 | disposition home or self-care (01) ==
LOC: HO.HSM 15:21
PROVIDERS: Visit Provider Registered Nurse
DX: G43.909 Migraine, unspecified, not intractable, without status migrainosus (principal); G44.209 Tension-type headache, unspecified, not intractable
CPT/HCPCS: 99214

== ENCOUNTER 2025-04-13 12:59 | Outpatient (REF) | payer BC, MEDICAID, SELFPAY ==
--- NOTE | ~2025-04-13 | US_ITS ---
EXAMINATION: US PELVIS CLINICAL INFORMATION: Postmenopausal bleeding. 54-year-old female. LMP = first week of March. History of LEEP procedure and D&C. COMPARISON: 02/01/2024. TECHNIQUE: Ultrasound of the pelvis is performed using both transabdominal and transvaginal transducers along with Doppler. Transvaginal imaging is performed due to inadequate visualization transabdominally. FINDINGS: Uterus: The uterus is anteverted, anteflexed, and measures 7.1 x 3.1 x 4.9 cm. The cervix has a normal appearance with small nabothian cysts present. The double wall endometrial thickness is 5 mm. It is uniform without irregularity. The uterus is smooth in contour and has mildly heterogeneous myometrial echogenicity. No visible fibroid. Adnexa: Both ovaries are visualized transabdominally. There is normal color flow to the adnexa. There is no ovarian torsion. There is no pelvic ascites or fluid collection. There are no adnexal masses. Right ovary measures 2.5 x 1.1 x 1.4 cm. Volume = 2.0 mL. Normal sonographic appearance. Left ovary measures 1.7 x 0.9 x 1.4 cm. Volume = 1.1 mL. Normal sonographic appearance. US/US pelvic and transvaginal IMPRESSION: 1. Essentially normal pelvic ultrasound. Electronically signed by: Chino Arnold MD 04/13/2025 02:05 PM [facility]
== END 2025-04-13 13:00 | disposition home or self-care (01) ==
LOC: HO.US 12:59
PROVIDERS: Visit Provider Obstetrics & Gynecology
DX: N95.0 Postmenopausal bleeding (principal)
CPT/HCPCS: 76830; 76856

== ENCOUNTER → 2025-04-13 13:01 | Outpatient (BNV) | payer BC, MEDICAID, SELFPAY | PROVIDERS: Visit Provider Radiology Diagnostic Radiology | DX: N95.0 Postmenopausal bleeding (principal) | CPT/HCPCS: 76830; 76856 ==

== ENCOUNTER 2025-05-02 11:19 | Outpatient (AMB) | payer BC, MEDICAID, SELFPAY ==
--- NOTE | 2025-05-02 11:19 | A.OFFVIS_ITS ---
Intake Visit Reasons: U/s Follow up Allergies No Known Allergies Allergy (Verified 03/20/25 15:26) HPI Comments Details: The patient is schedule telehealth visit for follow-up pelvic ultrasound regarding postmenopausal bleeding 04/13/2025 pelvic ultrasound showed the following: Uterus: The uterus is anteverted, anteflexed, and measures 7.1 x 3.1 x 4.9 cm. The cervix has a normal appearance with small nabothian cysts present. The double wall endometrial thickness is 5 mm. It is uniform without irregularity. The uterus is smooth in contour and has mildly heterogeneous myometrial echogenicity. No visible fibroid. Adnexa: Both ovaries are visualized transabdominally. There is normal color flow to the adnexa. There is no ovarian torsion. There is no pelvic ascites or fluid collection. There are no adnexal masses. Right ovary measures 2.5 x 1.1 x 1.4 cm. Volume = 2.0 mL. Normal sonographic appearance. Left ovary measures 1.7 x 0.9 x 1.4 cm. Volume = 1.1 mL. Normal sonographic appearance. [facility] Medical History Adenomatous duodenal polyp Gastric polyposis Sleep apnea Attenuated familial adenomatous polyposis Tubular adenoma Hx of migraines Herpes simplex Hypothyroidism (acquired) Constipation Hyperlipidemia Kuldip's thyroiditis Surgical History Hx of dilation and curettage H/O LEEP History of tonsillectomy History of endoscopy Hx of colonoscopy Hx of section Social History Are you a primary post acute care nurse to a significant other at home: No Do you presently have visiting nurse or other home services: No Alcohol intake: current Alcohol intake frequency: holidays/special occasions only Alcohol type: wine Patient Tobacco Use Status: Never used Tobacco Sexual orientation: Straight/Heterosexual Gender identity: Female Female Reproductive History Menstrual Age of Menarche: 14 Review of Systems Const All systems reviewed & are unremarkable except as noted in HPI and below Reports as per HPI and Reports no additional complaints GI Reports no additional complaints Reports no additional complaints Telehealth Telehealth Telehealth Platform: [employer] Location of provider rendering services: practice address Location of patient: address on file Patient Identification confirmed using: Name, : Yes Telehealth method: video Patient verbally consented to treatment: Yes Patient verbally consented to billing insurance company: Yes Patient informed of any privacy concerns related to visit: Yes Minutes spent on Phone/Video with Pt.: 3 Assessment & Plan Assessment & Plan (1) Postmenopausal bleeding: Code(s): N95.0 - Postmenopausal bleeding Category: Medical Plan: Discussed with the patient the pelvic ultrasound findings, the endometrial stripe thickenss measured by ultrasound was more than 4mm. The negative predictive value, positive predictive value, Sensitivity, specificity of using ultrasound measurement of endometrial stripe to detecting endometrial pathology including hyperplasia , polyp or cancer were discussed with the patient. Recommended to the patient that the next step is an endometrial sampling via hysteroscopy D&C possible polypectomy versus endometrial biopsy to r/o endometrial pathology including hyperplasia or cancer. All the pros and cons risks and benefits of each approach were discussed with the patient, endometrial biopsy being less invasive, office procedure with less sensitivity and inability diagnose a polyp and removal versus hysteroscopy done under anesthesia more inva sive more sensitive to endometrial cancer and possibility of diagnosing and endometrial polyp with the possibility of polypectomy. All questions were answered pt verbalized understanding and decided to proceed with endometrial biopsy. Instructions given the patient to schedule an endometrial biopsy appointment within 2 weeks. All questions answered, the patient verbalized understanding I spent a total of 20 minutes reviewing the chart, talking to the patient via video and documenting in the medical record. Coding Level of Care Code Tele Est Pt Level 3 (41570) Diagnoses Postmenopausal bleeding N95.0
== END 2025-05-02 11:41 | disposition home or self-care (01) ==
LOC: HO.HWS 11:19
PROVIDERS: Visit Provider Obstetrics & Gynecology
DX: N95.0 Postmenopausal bleeding (principal)
CPT/HCPCS: 99213